=== PATIENT | male | born 1980 | race Caucasian/White ===

== ENCOUNTER 2023-11-06 08:37 | Inpatient (IN) | payer SELFPAY ==
[2023-11-06] VITALS (42 sets, daily range): BP systolic 100–177; BP diastolic 53–98; PULSE 84–131; RESP 13–32; TEMP 34.3–36.8; O2SAT 96–100
--- NOTE | 2023-11-06 08:44 | XR_ITS ---
WS: [id number] XR chest 1V portable [id number] REASON FOR EXAM: dyspnea/cough FINDINGS: No previous chest exam for comparison. There is cardiomegaly. There is engorgement of the central pulmonary veins. There is calcified granulomatous disease bilaterally. There is elevation of the right hemidiaphragm. No acute pulmonary parenchymal or pleural abnormality is identified. XR/XR chest 1V portable [id number] IMPRESSION: Cardiomegaly and central pulmonary venous hypertension. Pulmonary edema or acut e infiltrate not identified.
[2023-11-06 08:57] LABS: Glucose Point of Care > 600 mg/dL (70-110)
--- NOTE | 2023-11-06 09:04 | W.ED.GENADLT ---
HPI - General Adult General: Chief complaint: General Medical Stated complaint: hyperglycemic Time Seen by Provider: 11/06/23 08:43 History of Present Illness: 43-year-old male with a known history of diabetes mellitus presents to the emergency room with elevated blood sugars as well as nausea and vomiting. He has a history of diabetes mellitus he took his last insulin dose last night he states he could not afford his insulin so he ran out. He says he has not been ill recently. 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 Associated symptoms: Reports chest pain, dyspnea, malaise, nausea, vomiting and weakness; Deny rash Related Data Home Medications Medication Instructions Recorded Confirmed No Known Home Medications 11/06/23 11/06/23 Allergies Allergy/AdvReac Type Severity Reaction Status Date / Time No Known Allergies Allergy Verified 11/06/23 08:56 Review of Systems Const: Reports: malaise; Denies: fever(s) or chills Card: Reports: chest pain Resp: Reports: dyspnea GI: Reports: nausea and vomiting; Denies: abdominal pain : Denies: dysuria, urinary frequency or urinary urgency Musc: Denies: neck pain or back pain Skin/Breast: Denies: rash PFSH ED PFSH: Medical History Insulin dependent diabetes mellitus Social History (Updated 11/06/23 @ 11:06 by Roman Torres MD) Smoking and tobacco/nicotine status: current every day tobacco/nicotine user Alcohol intake: current Substance/Drug Use: never Physical Exam Const: GENERAL APPEARANCE: cooperative ORIENTATION/CONSCIOUSNESS: Yes awake, Yes oriented to person, Yes oriented to place and Yes oriented to time HENMT: COMMON NORMALS: normocephalic, atraumatic and hearing grossly normal bilaterally HEAD & SCALP: normocephalic and atraumatic Resp: COMMON NORMALS: normal respiratory effort, No retractions, No use of accessory muscles and clear to auscultation bilaterally AUSCULTATION: clear to auscultation bilaterally Cardio: COMMON NORMALS: regular rate, regular rhythm and No murmurs present (Cardio) RATE: regular rate RHYTHM: regular rhythm GI: COMMON NORMALS: Soft to palpation and No hepatosplenomegaly present AUSCULTATION: Yes normoactive bowel sounds PALPATION: Yes Soft to palpation, No Tenderness to palpation present (GI), No Guarding due to palpation present (GI) and Yes No hepatosplenomegaly present Extremity: COMMON NORMALS: normal to inspection, capillary refill normal, no clubbing, cyanosis or edema, no calf tenderness and no pedal edema Neuro: SENSORIUM/ORIENTATION: Yes oriented to person, Yes oriented to place and Yes oriented to time Skin: COMMON NORMALS: no rashes or lesions noted GENERAL SKIN EXAM: no rashes or lesions noted Course Vital Signs: Vital signs: Vital Signs Temperature 93.8 F L 11/06/23 12:05 Pulse Rate 108 H 11/06/23 11:55 Respiratory Rate 26 H 11/06/23 12:05 Blood Pressure 100/81 11/06/23 12:05 Pulse Oximetry 99 11/06/23 12:05 Oxygen Delivery Me thod Room Air 11/06/23 09:39 MDM - General Adult Medical Decision Making Patient is in severe DKA. Potassium is actually rather low for the level of acidosis he has from his DKA will start potassium supplement now fluids ordered started on sodium bicarb was also been given push dose insulin and started on a drip. Discussed with hospitalist orders written. Etiology is noncompliance. Lab Data I reviewed the patient's lab results. 11/06/23 08:57 11/06/23 12:24 Radiology Impressions Chest X-Ray 11/06/23 08:44 IMPRESSION: Cardiomegaly and central pulmonary venous hypertension. Pulmonary edema or acute infiltrate not identified. Laboratory Results WBC 9.76 10^3/uL (3.29-11.43) 11/06/23 08:57 RBC 3.20 10^6/uL (3.85-5.65) L 11/06/23 08:57 Hgb 11.70 g/dL (11.27-16.99) 11/06/23 08:57 Hct 38.6 % (37-53) 11/06/23 08:57 MCV 120.6 fl (82-101) H 11/06/23 08:57 MCH 36.6 pg (27-33) H 11/06/23 08:57 MCHC 30.3 g/dL (30-55) 11/06/23 08:57 RDW 12.4 % (12.1-15.1) 11/06/23 08:57 Plt Count 191 10^3/cmm (157-399) 11/06/23 08:57 MPV 10.0 fL (7.4-10.4) 11/06/23 08:57 Neut % (Auto) 75.5 % 11/06/23 08:57 Lymph % (Auto) 14.5 % 11/06/23 08:57 [place] % (Auto) 8.1 % 11/06/23 08:57 Eos % (Auto) 0.4 % 11/06/23 08:57 Baso % (Auto) 0.5 % 11/06/23 08:57 Neut # (Auto) 7.36 10^3/uL (1.8-7.7) 11/06/23 08:57 Lymph # (Auto) 1.4 10^3/uL (0.8-4.8) 11/06/23 08:57 [place] # (Auto) 0.8 10^3/uL (0.2-0.9) 11/06/23 08:57 Eos # (Auto) 0.0 10^3/uL (0.0-0.8) 11/06/23 08:57 Baso # (Auto) 0.1 10^3/uL (0.0-0.1) 11/06/23 08:57 Nucleated RBC % (auto) 0 % 11/06/23 08:57 Nucleated RBCs # 0.0 /100WBC 11/06/23 08:57 Specimen Type Arterial 11/06/23 08:56 Sample Site Radial, left 11/06/23 08:56 ABG pH 6.95 (7.35-7.45) L* 11/06/23 08:56 ABG pCO2 10.9 mmHg (35-45) L* 11/06/23 08:56 ABG pO2 141.0 mmHg (80.0-100.0) H 11/06/23 08:56 ABG PO2/FiO2 Ratio 671 11/06/23 08:56 ABG HCO3 2.4 mmol/L (22-26) L 11/06/23 08:56 ABG O2 Saturation 98.1 11/06/23 08:56 ABG Base Excess -27.9 mmol/L (-2.0-2.0) L 11/06/23 08:56 Thaddeus Test Pos 11/06/23 08:56 A-a O2 Gradient Not Reportable 11/06/23 08:56 Hematocrit 36.1 % (42-52) L 11/06/23 08:56 Hgb O2 Saturation 95.8 % (95-100) 11/06/23 08:56 Carboxyhemoglobin 1.0 %THgb (0.4-20.1) 11/06/23 08:56 Methemoglobin 1.5 % (0.4-1.5) 11/06/23 08:56 Total Hemoglobin 11.8 g/dL (14-18) L 11/06/23 08:56 Sodium 128.0 mmol/L (131-143) L 11/06/23 08:56 Potassium 5.0 mmol/L (3.5-5.0) 11/06/23 08:56 Glucose 924.0 mg/dL (70-115) H 11/06/23 08:56 Ionized Calcium 1.3 mmol/L (1.1-1.4) 11/06/23 08:56 O2 Delivery Device Room air 11/06/23 08:56 FiO2 21.0 % 11/06/23 08:56 Centrifugal Casting Machine Tender ID Amh 11/06/23 08:56 Sodium 125 mmol/L (136-145) L 11/06/23 08:57 Potassium 5.4 mmol/L (3.5-5.1) H 11/06/23 08:57 Chloride 79 mmol/L (98-107) L 11/06/23 08:57 Carbon Dioxide 3 mmol/L (22-29) L* 11/06/23 08:57 Anion Gap 48.4 (5-19) H 11/06/23 08:57 BUN 30 mg/dL (6-20) H 11/06/23 08:57 Creatinine 2.1 mg/dL (0.7-1.2) H 11/06/23 08:57 GFR Calculation 34.3 mL/min (90-130) L 11/06/23 08:57 Glucose 986 mg/dL (65-115) H* 11/06/23 08:57 POC Glucose > 600 mg/dL (70-110) H* 11/06/23 10:29 Estimat Average Glucose 255 11/06/23 08:57 Hemoglobin A1c 10.5 % (4.0-6.0) H 11/06/23 08:57 Calculated Osmolality 315 mOsm/kg (285-295) H 11/06/23 08:57 Calcium 8.9 mg/dL (8.5-10.5) 11/06/23 08:57 Phosphorus 7.4 mg/dL (2.5-4.5) H 11/06/23 08:57 Magnesium 2.4 mg/dL (1.7-2.3) H 11/06/23 08:57 Total Bilirubin 0.3 mg/dL (0.15-1.2) 11/06/23 08:57 AST 99 U/L (0-40) H 11/06/23 08:57 ALT 78 U/L (0-41) H 11/06/23 08:57 Alkaline Phosphatase 233 U/L (40-130) H 11/06/23 08:57 Total Protein 6.6 g/dL (6.6-8.7) 11/06/23 08:57 Albumin 3.4 g/dL (3.5-5.2) L 11/06/23 08:57 Globulin 3.2 g/dL (1.3-4.6) 11/06/23 08:57 Lipase 16 U/L (13-60) 11/06/23 08:57 Vitamin B12 1049 pg/mL (232-1245) 11/06/23 08:57 Folate 7.6 ng/mL (4.5-32.2) 11/06/23 08:57 TSH 2.08 uIU/mL (0.27-4.20) 11/06/23 08:57 Urine Color Yellow (Yellow) 11/06/23 09:37 Urine Appearance Cloudy (CLEAR) A 11/06/23 09:37 Urine pH 5.0 (5-7) 11/06/23 09:37 Ur Specific [place] 1.021 (1.005-1.030) 11/06/23 09:37 Urine Protein 3+ (Negative) A 11/06/23 09:37 Urine Glucose (UA) 3+ (Normal) H 11/06/23 09:37 Urine Ketones 3+ (Negative) H 11/06/23 09:37 Urine Blood 1+ (Negative) A 11/06/23 09:37 Urine Nitrate Negative (Negative) 11/06/23 09:37 Urine Bilirubin Negative (Negative) 11/06/23 09:37 Urine Urobilinogen 0.2 mg/dL (Negative) 11/06/23 09:37 Ur Leukocyte Esterase Negative (Negative) 11/06/23 09:37 Urine RBC 0-2 /hpf (0-2) 11/06/23 09:37 Urine WBC 0-5 /hpf (0-5) 11/06/23 09:37 Ur Squamous Epith Cells 0-5 /hpf (0-5) 11/06/23 09:37 Amorphous Sediment Not Reportable 11/06/23 09:37 Urine Bacteria None seen /hpf (NONE) 11/06/23 09:37 Hyaline Casts 7.01 /lpf 11/06/23 09:37 Ethyl Alcohol < 10 mg/dL (0-10) 11/06/23 08:57 Serum Ketones Positive (Negative) H 11/06/23 08:57 Hepatitis A IgM Ab Non-reactive (Nonreactive) 11/06/23 08:57 Hep Bs Antigen Non-reactive (Nonreactive) 11/06/23 08:57 Hep B Core IgM Ab Non-reactive (Nonreactive) 11/06/23 08:57 Hepatitis C Antibody Non-reactive (Nonreactive) 11/06/23 08:57 All radiology interpretation(s) finalized by discharge Discharge Plan Discharge Patient Disposition: Admitted As Inpatient Admit Provider: Roman Torres Clinical Impression: DKA (diabetic ketoacidosis), Insulin dependent diabetes mellitus, Acute kidney injury, Pseudohyponatremia Condition: Stable Coding Level of Care Code ED [place] for Jamie Null
[2023-11-06 09:07] LABS: ABG PCO2 10.9 mmHg (35-45); ABG PH Result 6.95 (7.35-7.45); Arterial Blood Gas Hematocrit 36.1 % (42-52); Base Excess ABG -27.9 mmol/L (-2.0-2.0); Blood Gas Allen Test Pos; Blood Gas Operator Identificat AMH; Blood Gas Sample Site Radial, left; Blood Gas Sample Type Arterial; HCO3 ABG 2.4 mmol/L (22-26); HGB O2 Sat 95.8 % (95-100); Ionized Calcium Level - ABG 1.3 mmol/L (1.1-1.4); Methemoglobin 1.5 % (0.4-1.5); Oxygen Device ROOM AIR; Oxygen Saturation ABG 98.1; PO2 FiO2 Ratio Arterial Blood 671; Total Hemoglobin 11.8 g/dL (14-18)
[2023-11-06 09:15] LABS: Basophils # 0.1 10^3/uL (0.0-0.1); Basophils % 0.5 %; Eosinophils % 0.4 %; Hematocrit 38.6 % (37-53); Lymphocytes # 1.4 10^3/uL (0.8-4.8); Lymphocytes % 14.5 %; Mean Corpuscular HGB Conc 30.3 g/dL (30-55); Mean Corpuscular Hemoglobin 36.6 pg (27-33); Mean Corpuscular Volume 120.6 fl (82-101); Monocytes # 0.8 10^3/uL (0.2-0.9); Monocytes % 8.1 %; Neutrophils # 7.36 10^3/uL (1.8-7.7); Neutrophils % 75.5 %; Nucleated Red Blood Cells % 0 %; Platelet Count 191 10^3/cmm (157-399); Red Cell Distribution Width 12.4 % (12.1-15.1); White Blood Count 9.76 10^3/uL (3.29-11.43)
[2023-11-06] MEDS: sodium chloride 0.9% 1,000 ML 999 ML IV ×4 (09:25→10:55)
[2023-11-06] MEDS: insulin regular-human 100 units/1 mL 10 UNIT IVP (09:25)
--- NOTE | 2023-11-06 09:29 | ECG_ITS ---
[facility] Test Date: 2023-11-06 Pat Name: Erik Valdez Department: Room: Gender: Male Neurology Stroke Physician: : 1980 Requested By: Kristian Figueroa Order Number: [id number] Reading MD: JESUS MARTE Measurements Intervals [place] Rate: 106 P: 64 PA: 168 QRS: 18 QRSD: 112 T: 38 QT: 373 QTc: 496 Interpretive Statements SINUS TACHYCARDIA MODERATE INTRAVENTRICULAR CONDUCTION DELAY [110+ ms QRS DURATION] MINIMAL ST DEPRESSION [0.025+ mV ST DEPRESSION] ABNORMAL RHYTHM ECG No previous ECG available for comparison Electronically Signed On 11-06-2023 11:46:14 CDT by JESUS MARTE [email or web address]
[2023-11-06 09:31] LABS: Ketone (Acetest) Serum Positive (Negative)
[2023-11-06 09:38] LABS: Alanine Aminotransferase 78 U/L (0-41); Albumin Level 3.4 g/dL (3.5-5.2); Alkaline Phosphatase 233 U/L (40-130); Anion Gap 48.4 (5-19); Aspartate Amino Transferase 99 U/L (0-40); Blood Urea Nitrogen 30 mg/dL (6-20); Calcium 8.9 mg/dL (8.5-10.5); Chloride 79 mmol/L (98-107); Globulin 3.2 g/dL (1.3-4.6); Glomerular Filtration Rate 34.3 mL/min (90-130); Lipase 16 U/L (13-60); Potassium 5.4 mmol/L (3.5-5.1); Sodium 125 mmol/L (136-145); Total Bilirubin 0.3 mg/dL (0.15-1.2); Total Protein 6.6 g/dL (6.6-8.7)
[2023-11-06 09:46] LABS: Osmolality Calculated 315 mOsm/kg (285-295)
[2023-11-06 09:52] LABS: Carbon Dioxide 3 mmol/L (22-29); Glucose 986 mg/dL (65-115)
[2023-11-06 09:53] LABS: Bilirubin Urine Negative (Negative); Blood Urine 1+ (Negative); Glucose Urine UA 3+ (Normal); Ketones Urine 3+ (Negative); Leukocyte Esterase Urine Negative (Negative); Nitrate Urine Negative (Negative); Protein Urine 3+ (Negative); Specific Gravity, Urine 1.021 (1.005-1.030); Urine Appearance Cloudy (CLEAR); Urine Color Yellow (Yellow); Urobilinogen Urine 0.2 mg/dL (Negative)
[2023-11-06 09:58] LABS: Add Urine Microscopic? YES; Bacteria Urine None Seen /hpf; Hyaline Casts Urine 7.01 /lpf; RBC Urine 0-2 /hpf (0-2); Squamous Epithelial Cell Urine 0-5 /hpf (0-5); WBC Urine 0-5 /hpf (0-5)
[2023-11-06 10:11] LABS: Add Urine Culture? No
[2023-11-06 10:13] LABS: Magnesium 2.4 mg/dL (1.7-2.3); Phosphorus 7.4 mg/dL (2.5-4.5)
--- NOTE | 2023-11-06 10:29 | PC.NURSE ---
Glucose @1028 via IV start: read HI.
[2023-11-06] MEDS: INSULIN REGULAR IN 0.9 % NACL 100 UNIT/100 ML BAG 8 UNIT IV (10:39)
[2023-11-06] MEDS: potassium chloride premix 100 ML 25 MEQ IV (10:42)
[2023-11-06] MEDS: sodium bicarbonate 150 MEQ in dextrose 5% 200 ML 500 MEQ IV (10:53)
--- NOTE | 2023-11-06 10:54 | PC.NURSE ---
Insulin gtt rate: per Dr. Tobar to start insulin gtt @8 units/hr
--- NOTE | 2023-11-06 11:00 | PC.PHAR ---
pt states takes no home medications. Pharmacy listed is [facility]. They have no record of any medications for this pt.
--- NOTE | 2023-11-06 11:03 | P.HP_ITS ---
Providers/Chief Complaint 2 Admitting Physician: Roman Torres MD Chief Complaint: hyperglycemic History of Present Illness Erik Valdez is a 43 year old male with history of diabetes insulin- dependent who presents with DKA. He reports he has not taken his insulin in the last several days. He typically does not see a physician, getting his insulin directly from [facility]. Reports his last DKA admission was about a year ago in [place]. With increased sugars again abdominal pain, nausea and vomiting. He reports no recent illness, fever, COVID, blood in stool, black or tarry stool. Reports he does not take any other medicines and has no other medical problems. History is somewhat limited as he is severely acidotic, with a high respiratory rate and obviously uncomfortable with his DKA. He does report he drinks alcohol but is never had any withdrawal. In the emergency department he has received quite a bit of fluids, and apparently will have received 4 L by the time he arrives in the ICU. Bicarb was given, insulin protocol initiated Review of Systems 2 General: Reports: 10 or more systems reviewed and unremarkable except in HPI and below Card: Denies: chest pain Resp: Reports: dyspnea GI: Reports: nausea and vomiting; Denies: abdominal pain, hematochezia or melena Medications/Allergies Home Medications Medication Instructions Recorded Confirmed Last Taken Type No Known Home Medications 11/06/23 11/06/23 Unknown History Allergies Allergy/AdvReac Type Severity Reaction Status Date / Time No Known Allergies Allergy Verified 11/06/23 08:56 PFSH Acute 2 PFSH: Medical History Insulin dependent diabetes mellitus Social History (Updated 11/06/23 @ 11:06 by Roman Torres MD) Smoking and tobacco/nicotine status: current every day tobacco/nicotine user Alcohol intake: current Substance/Drug Use: never Vitals/I&O/Wt Last Vital Signs Temp 94.3 F L 11/06/23 08:39 Pulse 105 H 11/06/23 10:50 Resp 25 H 11/06/23 10:50 BP 104/65 11/06/23 10:50 Pulse Ox 99 11/06/23 10:50 O2 Del Method Room Air 11/06/23 09:39 11/05/23 11/06/23 11/06/23 22:59 06:59 14:59 Intake Total 6.55 / 6.55 Balance 6.55 / 6.55 Weight last 48 hrs Weight 120.202 kg Physical Exam 2 Narrative: General Exam is an uncomfortable appearing white male with significant tachypnea reporting he is cold HEENT: Atraumatic normocephalic. Oropharynx dry mucous membranes Neck is supple Cardiovascular tachycardic and regular Lungs clear Abdomen is soft, no obvious organomegaly. Positive bowel sounds exams deferred Extremities no sinus clubbing edema, cap refill brisk Skin no rash Data 11/06/23 08:57 11/06/23 08:57 Other Labs: ABG demonstrates pH 6.95, pCO2 of 10.9, pO2 of 141 on room air Phosphorus 7.4, magnesium 2.4, calcium 8.9 Total bili normal, AST 99 ALT 78 alk phos 233, albumin 3.4 Lipase is normal I have ordered a B12, folate, TSH, A1c Urinalysis demonstrates 3+ protein and glucose Serum ketones positive I have ordered an alcohol level and a hepatitis panel Chest x-ray by my read no infiltrate, cardiomegaly EKG demonstrates sinus tachycardia, normal axis, intraventricular conduction delay A&P Assessment and plan (1) DKA (diabetic ketoacidosis): This is likely secondary to noncompliance with insulin. Patient relates that he is run out of medication and was not able to afford this. DKA protocol initiated He will of received over 4 L of oxygen prior to arriving in the ICU BMP every 4 hours When glucose 250 or less initiate D5 half-normal saline with 20 mill colons of potassium per liter Close follow-up of magnesium and phosphorus and supplement if needed (2) Hypothermia: Patient with hypothermia Rewarm Monitor closely Currently low suspicion for sepsis but will keep in mind (3) Macrocytosis: Patient macrocytic Check B12 folate TSH Could be secondary to alcohol intake, monitor for withdrawal (4) Acute kidney injury: Patient with acute kidney injury This is likely secondary to dehydration, prerenal effect from DKA Monitor for improvement with hydration (5) Pseudohyponatremia: Secondary to elevated glucose Plan History of alcohol intake. [facility] protocol Monitor for withdrawal Attestations 2 Medical Necessity Statement*: Will need greater than 2 midnight stay for evaluation and treatment of DKA for close monitoring of Critical Care Time: The high probability of a clinically significant, sudden or life threatening deterioration of the patient's [endocrine, electrolyte, metabolic, renal] s ystem(s) required my full and direct attention, intervention and personal management. The critical care time is as shown. This time is in addition to time spent performing any reported procedures but includes the following: [x] Data and vital sign review and interpretation [x] Patient assessment, examination and intervention [x] Documentation [x] Medication orders and management Critical Care Time (min): 54 Coding Level of Care Code Critical Care >/= 30 minutes Critical care time (in minutes): 54 The high probability of a clinically significant, sudden or life threatening deterioration, as referenced in this documentation, required my full and direct attention, intervention and personal management. The critical care time shown is in addition to time spent performing any reported separately billable procedures and includes the following: [x] Data and vital sign review and interpretation [x ] Patient assessment, examination and intervention [x] Medication orders and management [x] Patient/Family updates as able [x] Care Coordination and Documentation. Diagnoses DKA (diabetic ketoacidosis) E11.10 Hypothermia T68.XXXA Macrocytosis D75.89 Acute kidney injury N17.9 Pseudohyponatremia R79.89
--- NOTE | 2023-11-06 11:04 | PC.NURSE ---
pt's rectal temperature 94.4 deg F, Dr. Tobar notified. x3 warm blankets placed on pt.
[2023-11-06 11:13] LABS: Glucose Point of Care > 600 mg/dL (70-110)
--- NOTE | 2023-11-06 11:13 | PC.NURSE ---
Glucose via fingerstick @1113: Dr. Ekaterina Moraes notified
[2023-11-06 11:15] LABS: Glucose Point of Care > 600 mg/dL (70-110)
[2023-11-06 11:25] LABS: Hepatitis A Antibody IgM Non-Reactive (Nonreactive); Hepatitis B Core IgM Non-Reactive (Nonreactive); Hepatitis B Surface Antigen Non-Reactive (Nonreactive); Hepatitis C Virus Antibody Non-Reactive (Nonreactive)
--- NOTE | 2023-11-06 11:29 | PC.NURSE ---
Report called to Ricardo in ICU, no further questions regarding report. Pt transported to ICU via stretcher on hospital monitor by this nurse and nuclear medical technologist.
[2023-11-06 11:31] LABS: Folate Level 7.6 ng/mL (4.5-32.2)
[2023-11-06 11:32] LABS: Thyroid Stimulating Hormone 2.08 uIU/mL (0.27-4.20); Vitamin B12 1049 pg/mL (232-1245)
[2023-11-06 11:35] LABS: Alcohol Level < 10 mg/dL (0-10)
[2023-11-06 11:47] LABS: Estmated Average Glucose 255; Hemoglobin A1C 10.5 % (4.0-6.0)
[2023-11-06 12:58] LABS: Anion Gap 39.2 (5-19); Blood Urea Nitrogen 29 mg/dL (6-20); Calcium 8.1 mg/dL (8.5-10.5); Chloride 92 mmol/L (98-107); Creatinine Clr Calc Pharmacy 66.9887; Glomerular Filtration Rate 36.3 mL/min (90-130); Osmolality Calculated 317 mOsm/kg (285-295); Potassium 4.2 mmol/L (3.5-5.1); Sodium 135 mmol/L (136-145)
[2023-11-06 13:05] LABS: Glucose Point of Care > 600 mg/dL (70-110)
[2023-11-06 13:07] LABS: Carbon Dioxide 8 mmol/L (22-29); Glucose 655 mg/dL (65-115)
[2023-11-06 14:04] LABS: Glucose Point of Care 493 mg/dL (70-110)
[2023-11-06] MEDS: heparin 5,000 unit/mL INJ 1 mL 5000 UNIT SUBCUT ×2 (14:30→23:59)
[2023-11-06] MEDS: sodium chlor 0.9% + KCl 20 mEq 20 MEQ/1,000 ML BAG 175 MEQ IV (14:30)
[2023-11-06 15:08] LABS: Glucose Point of Care 330 mg/dL (70-110)
[2023-11-06] MEDS: nicotine 21 mg Patch 1 PATCH TRANSDERMA (15:08)
[2023-11-06 16:01] LABS: Glucose Point of Care 281 mg/dL (70-110)
[2023-11-06] MEDS: INSULIN REGULAR IN 0.9 % NACL 100 UNIT/100 ML BAG 27 UNIT IV (16:03)
[2023-11-06 16:49] LABS: Glucose Point of Care 598 mg/dL (70-110)
[2023-11-06 17:05] LABS: Blood Urea Nitrogen 29 mg/dL (6-20); Calcium 8.3 mg/dL (8.5-10.5); Carbon Dioxide 14 mmol/L (22-29); Chloride 102 mmol/L (98-107); Creatinine Clr Calc Pharmacy 70.5144; Glomerular Filtration Rate 38.5 mL/min (90-130); Glucose 265 mg/dL (65-115); Osmolality Calculated 305 mOsm/kg (285-295); Sodium 140 mmol/L (136-145)
[2023-11-06 17:07] LABS: Anion Gap 27.7 (5-19); Potassium 3.7 mmol/L (3.5-5.1)
[2023-11-06 17:11] LABS: Glucose Point of Care 177 mg/dL (70-110)
[2023-11-06] MEDS: D5-NS 0.45% + KCL 20 mEq 20 MEQ/1,000 ML BAG 75 MEQ IV ×2 (17:24→23:57)
[2023-11-06 18:06] LABS: Glucose Point of Care 100 mg/dL (70-110)
[2023-11-06 19:04] LABS: Glucose Point of Care 151 mg/dL (70-110)
[2023-11-06] MEDS: acetaminophen 325 mg Tablet 650 MG PO (19:37)
[2023-11-06 19:41] LABS: Glucose Point of Care 101 mg/dL (70-110)
[2023-11-06] MEDS: cetylpyridinium Lozenge 1 EACH MUCOUS MEM (20:05)
[2023-11-06 20:07] LABS: Magnesium 1.8 mg/dL (1.7-2.3)
[2023-11-06 20:08] LABS: Anion Gap 16.7 (5-19); Blood Urea Nitrogen 27 mg/dL (6-20); Calcium 8.2 mg/dL (8.5-10.5); Carbon Dioxide 22 mmol/L (22-29); Chloride 107 mmol/L (98-107); Creatinine Clr Calc Pharmacy 78.8103; Glomerular Filtration Rate 43.8 mL/min (90-130); Glucose 101 mg/dL (65-115); Osmolality Calculated 299 mOsm/kg (285-295); Potassium 3.7 mmol/L (3.5-5.1); Sodium 142 mmol/L (136-145)
[2023-11-06 21:30] LABS: Glucose Point of Care 159 mg/dL (70-110)
[2023-11-06 22:09] LABS: Glucose Point of Care 172 mg/dL (70-110)
[2023-11-06] MEDS: hyDROXYzine 25 mg Capsule PO (22:47)
[2023-11-06 23:04] LABS: Glucose Point of Care 220 mg/dL (70-110)
[2023-11-06 23:04] LABS: Glucose Point of Care 164 mg/dL (70-110)
[2023-11-07] VITALS (11 sets, daily range): BP systolic 129–215; BP diastolic 69–117; PULSE 81–94; RESP 15–24; TEMP 36.3; O2SAT 94–100
[2023-11-07 01:22] LABS: Glucose Point of Care 232 mg/dL (70-110)
[2023-11-07 01:22] LABS: Glucose Point of Care 248 mg/dL (70-110)
[2023-11-07 01:58] LABS: Glucose Point of Care 266 mg/dL (70-110)
[2023-11-07] MEDS: cetylpyridinium Lozenge 1 EACH MUCOUS MEM (02:03)
[2023-11-07] MEDS: ondansetron 2 mg/ML SDV 2 mL 4 MG IVP (02:03)
[2023-11-07 04:00] LABS: Glucose Point of Care 237 mg/dL (70-110)
[2023-11-07 04:00] LABS: Glucose Point of Care 255 mg/dL (70-110)
[2023-11-07 04:22] LABS: Basophils % 0.1 %; Eosinophils % 0.3 %; Hematocrit 31.5 % (37-53); Lymphocytes # 1.1 10^3/uL (0.8-4.8); Lymphocytes % 14.8 %; Mean Corpuscular Hemoglobin 35.3 pg (27-33); Mean Corpuscular Volume 106.8 fl (82-101); Mean Platelet Volume 9.9 fL (7.4-10.4); Monocytes # 0.8 10^3/uL (0.2-0.9); Monocytes % 11.6 %; Neutrophils # 5.27 10^3/uL (1.8-7.7); Neutrophils % 73.1 %; Nucleated Red Blood Cells % 0 %; Platelet Count 139 10^3/cmm (157-399); Red Blood Count 2.95 10^6/uL (3.85-5.65); Red Cell Distribution Width 11.9 % (12.1-15.1); White Blood Count 7.22 10^3/uL (3.29-11.43)
[2023-11-07 04:41] LABS: Alanine Aminotransferase 60 U/L (0-41); Albumin Level 2.8 g/dL (3.5-5.2); Alkaline Phosphatase 153 U/L (40-130); Aspartate Amino Transferase 78 U/L (0-40); Blood Urea Nitrogen 23 mg/dL (6-20); Calcium 7.8 mg/dL (8.5-10.5); Carbon Dioxide 19 mmol/L (22-29); Chloride 102 mmol/L (98-107); Creatinine Clr Calc Pharmacy 83.7359; Globulin 2.7 g/dL (1.3-4.6); Glucose 265 mg/dL (65-115); Magnesium 1.8 mg/dL (1.7-2.3); Osmolality Calculated 295 mOsm/kg (285-295); Sodium 136 mmol/L (136-145); Total Bilirubin 0.3 mg/dL (0.15-1.2); Total Protein 5.5 g/dL (6.6-8.7)
[2023-11-07 04:44] LABS: Anion Gap 18.8 (5-19); Potassium 3.8 mmol/L (3.5-5.1)
[2023-11-07 05:08] LABS: Glucose Point of Care 240 mg/dL (70-110)
[2023-11-07 06:24] LABS: Glucose Point of Care 245 mg/dL (70-110)
[2023-11-07] MEDS: D5-NS 0.45% + KCL 20 mEq 20 MEQ/1,000 ML BAG 75 MEQ IV (06:45)
[2023-11-07 07:42] LABS: Glucose Point of Care 212 mg/dL (70-110)
[2023-11-07 08:40] LABS: Glucose Point of Care 212 mg/dL (70-110)
[2023-11-07] MEDS: thiamine 100 mg Tablet PO (08:52)
[2023-11-07] MEDS: multivitamin therapeutic Tablet 1 TAB PO (08:52)
[2023-11-07] MEDS: nicotine 21 mg Patch 1 PATCH TRANSDERMA (08:53)
[2023-11-07] MEDS: folic acid 1 mg Tablet PO (08:53)
[2023-11-07] MEDS: pantoprazole 40 mg SDV IVP (08:53)
[2023-11-07 09:07] LABS: Glucose Point of Care 208 mg/dL (70-110)
[2023-11-07 09:09] LABS: Anion Gap 15.5 (5-19); Blood Urea Nitrogen 20 mg/dL (6-20); Calcium 7.9 mg/dL (8.5-10.5); Carbon Dioxide 21 mmol/L (22-29); Chloride 104 mmol/L (98-107); Glomerular Filtration Rate 54.8 mL/min (90-130); Glucose 231 mg/dL (65-115); Osmolality Calculated 294 mOsm/kg (285-295); Potassium 3.5 mmol/L (3.5-5.1); Sodium 137 mmol/L (136-145)
[2023-11-07 09:13] LABS: Creatinine Clr Calc Pharmacy 98.7419
[2023-11-07] MEDS: insulin glargine 100 units/1 mL 20 UNIT SUBCUT (10:17)
[2023-11-07] MEDS: sodium chloride 0.9% 1,000 ML 75 ML IV (10:19)
[2023-11-07 12:12] LABS: Glucose Point of Care 365 mg/dL (70-110)
[2023-11-07] MEDS: insulin lispro 100 unit/1 mL SUBCUT (12:12)
[2023-11-07] MEDS: losartan 50 mg Tablet 25 MG PO (12:13)
[2023-11-07 13:17] LABS: Anion Gap 16.7 (5-19); Blood Urea Nitrogen 18 mg/dL (6-20); Calcium 8.1 mg/dL (8.5-10.5); Carbon Dioxide 20 mmol/L (22-29); Chloride 102 mmol/L (98-107); Glomerular Filtration Rate 59.7 mL/min (90-130); Glucose 359 mg/dL (65-115); Osmolality Calculated 296 mOsm/kg (285-295); Potassium 3.7 mmol/L (3.5-5.1); Sodium 135 mmol/L (136-145)
[2023-11-07 13:18] LABS: Creatinine Clr Calc Pharmacy 106.3375
--- NOTE | 2023-11-07 13:40 | P.DS_ITS ---
Discharge Providers Date of Admission: 11/06/23 11:00 Date of Discharge: November 07, 2023 Attending Provider at Admission: Roman Torres MD Attending Provider at Discharge: Roman Torres MD Diagnoses at Discharge Discharge Diagnosis (1) DKA (diabetic ketoacidosis): Status: Acute (2) Hypothermia: Status: Acute (3) Macrocytosis: Status: Acute (4) Acute kidney injury: Status: Acute (5) Pseudohyponatremia: Status: Acute Reason for Visit Reason for Visit: hyperglycemic Hospital Course Hospital Course Patient is a 43-year-old white male who presented to hospital severely ill with DKA with pH less than 7. He was fluid resuscitated in the ER, and initiated on a insulin drip protocol. He did well with this and had gradual resolution of his DKA. Gap was closed by the morning of November 06 and long-acting insulin was started as well as consistent carb diet. He tolerated this in the afternoon without any recurrence of anion gap acidosis though it was thought he could be discharged home. Prescriptions for insulin, follow-up with primary care provider, and precautions were given. He agreed with the plan. He was told to stop drinking alcohol as he was also drinking heavily. He was able to relate symptoms of hypoglycemia, and the plan should this occur. Physical Exam Narrative: General Exam no distress Neck is supple Cardiovascular regular rate rhythm Lungs clear Abdomen soft Extremities no cyanosis clubbing or edema Discharge Data Studies Completed and Pending Completed Studies During Hospitalization Category Date Time Status XR chest 1V portable [id number] Stat Exams 11/06/23 08:44 Completed Radiology Impressions Chest X-Ray 11/06/23 08:44 IMPRESSION: Cardiomegaly and central pulmonary venous hypertension. Pulmonary edema or acute infiltrate not identified. Laboratory Results WBC 7.22 10^3/uL (3.29-11.43) 11/07/23 03:57 RBC 2.95 10^6/uL (3.85-5.65) L 11/07/23 03:57 Hgb 10.40 g/dL (11.27-16.99) L 11/07/23 03:57 Hct 31.5 % (37-53) L 11/07/23 03:57 MCV 106.8 fl (82-101) H D 11/07/23 03:57 MCH 35.3 pg (27-33) H 11/07/23 03:57 MCHC 33.0 g/dL (30-55) D 11/07/23 03:57 RDW 11.9 % (12.1-15.1) L 11/07/23 03:57 Plt Count 139 10^3/cmm (157-399) L 11/07/23 03:57 MPV 9.9 fL (7.4-10.4) 11/07/23 03:57 Neut % (Auto) 73.1 % 11/07/23 03:57 Lymph % (Auto) 14.8 % 11/07/23 03:57 [place] % (Auto) 11.6 % 11/07/23 03:57 Eos % (Auto) 0.3 % 11/07/23 03:57 Baso % (Auto) 0.1 % 11/07/23 03:57 Neut # (Auto) 5.27 10^3/uL (1.8-7.7) 11/07/23 03:57 Lymph # (Auto) 1.1 10^3/uL (0.8-4.8) 11/07/23 03:57 [place] # (Auto) 0.8 10^3/uL (0.2-0.9) 11/07/23 03:57 Eos # (Auto) 0.0 10^3/uL (0.0-0.8) 11/07/23 03:57 Baso # (Auto) 0.0 10^3/uL (0.0-0.1) 11/07/23 03:57 Nucleated RBC % (auto) 0 % 11/07/23 03:57 Nucleated RBCs # 0.0 /100WBC 11/07/23 03:57 Specimen Type Arterial 11/06/23 08:56 Sample Site Radial, left 11/06/23 08:56 ABG pH 6.95 (7.35-7.45) L* 11/06/23 08:56 ABG pCO2 10.9 mmHg (35-45) L* 11/06/23 08:56 ABG pO2 141.0 mmHg (80.0-100.0) H 11/06/23 08:56 ABG PO2/FiO2 Ratio 671 11/06/23 08:56 ABG HCO3 2.4 mmol/L (22-26) L 11/06/23 08:56 ABG O2 Saturation 98.1 11/06/23 08:56 ABG Base Excess -27.9 mmol/L (-2.0-2.0) L 11/06/23 08:56 Thaddeus Test Pos 11/06/23 08:56 A-a O2 Gradient Not Reportable 11/06/23 08:56 Hematocrit 36.1 % (42-52) L 11/06/23 08:56 Hgb O2 Saturation 95.8 % (95-100) 11/06/23 08:56 Carboxyhemoglobin 1.0 %THgb (0.4-20.1) 11/06/23 08:56 Methemoglobin 1.5 % (0.4-1.5) 11/06/23 08:56 Total Hemoglobin 11.8 g/dL (14-18) L 11/06/23 08:56 Sodium 128.0 mmol/L (131-143) L 11/06/23 08:56 Potassium 5.0 mmol/L (3.5-5.0) 11/06/23 08:56 Glucose 924.0 mg/dL (70-115) H 11/06/23 08:56 Ionized Calcium 1.3 mmol/L (1.1-1.4) 11/06/23 08:56 O2 Delivery Device Room air 11/06/23 08:56 FiO2 21.0 % 11/06/23 08:56 Change Management Director ID Amh 11/06/23 08:56 Sodium 135 mmol/L (136-145) L 11/07/23 12:50 Potassium 3.7 mmol/L (3.5-5.1) 11/07/23 12:50 Chloride 102 mmol/L (98-107) 11/07/23 12:50 Carbon Dioxide 20 mmol/L (22-29) L 11/07/23 12:50 Anion Gap 16.7 (5-19) 11/07/23 12:50 BUN 18 mg/dL (6-20) 11/07/23 12:50 Creatinine 1.3 mg/dL (0.7-1.2) H 11/07/23 12:50 GFR Calculation 59.7 mL/min (90-130) L 11/07/23 12:50 Glucose 359 mg/dL (65-115) H 11/07/23 12:50 POC Glucose 365 mg/dL (70-110) H 11/07/23 12:04 Estimat Average Glucose 255 11/06/23 08:57 Hemoglobin A1c 10.5 % (4.0-6.0) H 11/06/23 08:57 Calculated Osmolality 296 mOsm/kg (285-295) H 11/07/23 12:50 Calcium 8.1 mg/dL (8.5-10.5) L 11/07/23 12:50 Phosphorus 7.4 mg/dL (2.5-4.5) H 11/06/23 08:57 Magnesium 1.8 mg/dL (1.7-2.3) 11/07/23 03:57 Total Bilirubin 0.3 mg/dL (0.15-1.2) 11/07/23 03:57 AST 78 U/L (0-40) H 11/07/23 03:57 ALT 60 U/L (0-41) H 11/07/23 03:57 Alkaline Phosphatase 153 U/L (40-130) H 11/07/23 03:57 Total Protein 5.5 g/dL (6.6-8.7) L 11/07/23 03:57 Albumin 2.8 g/dL (3.5-5.2) L 11/07/23 03:57 Globulin 2.7 g/dL (1.3-4.6) 11/07/23 03:57 Lipase 16 U/L (13-60) 11/06/23 08:57 Vitamin B12 1049 pg/mL (232-1245) 11/06/23 08:57 Folate 7.6 ng/mL (4.5-32.2) 11/06/23 08:57 TSH 2.08 uIU/mL (0.27-4.20) 11/06/23 08:57 Urine Color Yellow (Yellow) 11/06/23 09:37 Urine Appearance Cloudy (CLEAR) A 11/06/23 09:37 Urine pH 5.0 (5-7) 11/06/23 09:37 Ur Specific [place] 1.021 (1.005-1.030) 11/06/23 09:37 Urine Protein 3+ (Negative) A 11/06/23 09:37 Urine Glucose (UA) 3+ (Normal) H 11/06/23 09:37 Urine Ketones 3+ (Negative) H 11/06/23 09:37 Urine Blood 1+ (Negative) A 11/06/23 09:37 Urine Nitrate Negative (Negative) 11/06/23 09:37 Urine Bilirubin Negative (Negative) 11/06/23 09:37 Urine Urobilinogen 0.2 mg/dL (Negative) 11/06/23 09:37 Ur Leukocyte Esterase Negative (Negative) 11/06/23 09:37 Urine RBC 0-2 /hpf (0-2) 11/06/23 09:37 Urine WBC 0-5 /hpf (0-5) 11/06/23 09:37 Ur Squamous Epith Cells 0-5 /hpf (0-5) 11/06/23 09:37 Amorphous Sediment Not Reportable 11/06/23 09:37 Urine Bacteria None seen /hpf (NONE) 11/06/23 09:37 Hyaline Casts 7.01 /lpf 11/06/23 09:37 Ethyl Alcohol < 10 mg/dL (0-10) 11/06/23 08:57 Serum Ketones Positive (Negative) H 11/06/23 08:57 Hepatitis A IgM Ab Non-reactive (Nonreactive) 11/06/23 08:57 Hep Bs Antigen Non-reactive (Nonreactive) 11/06/23 08:57 Hep B Core IgM Ab Non-reactive (Nonreactive) 11/06/23 08:57 Hepatitis C Antibody Non-reactive (Nonreactive) 11/06/23 08:57 Vitals Last Vital Signs Temp 97.4 F L 11/07/23 04:00 Pulse 91 11/07/23 10:41 Resp 15 11/07/23 10:00 BP 215/115 11/07/23 12:13 Pulse Ox 94 11/07/23 10:41 O2 Del Method Room Air 11/07/23 10:41 Discharge Plan Discharge Patient Disposition: Home Condition: Stable Prescriptions: New losartan 50 mg Tablet 25 mg PO DAILY Qty: 30 0RF insulin glargine [Lantus Solostar U-100 Insulin] 100 unit/mL (3 mL) insulin pen 30 unit SUBCUT QPM Qty: 15 0RF Humalog U-100 Insulin 100 unit/mL cartridge 8 unit SUBCUT TID Qty: 15 0RF No Action No Known Home Medications Discharge Orders: Discharge Order (Routine); Ordered 11/07/23 Ordered By: Roman Torres Discharge Diet: Diabetic Discharge Activity: Increase activity as tolerated Patient Instructions: Opioid Safety Activity Restrictions/Additional Instructions: Take all medicine as prescribed Follow-up with primary care provider 3 to 5 days. Discharge planning will arrange Keep track of your blood pressures at home Take 30 units of Lantus daily. Take 8 units of Humalog with your meals 3 times daily. May use your sliding scale if needed Discharge Attestations Time Spent in Discharge Care*: greater than 30 min Quality Metrics Clinical Quality Measures [ No reported AMI, CVA or VTE this stay] Coding Level of Care Code 64916 Total time (in minutes) for Discharge: 38 Diagnoses DKA (diabetic ketoacidosis) E11.10 Hypothermia T68.XXXA Macrocytosis D75.89 Acute kidney injury N17.9 Pseudohyponatremia R79.89
--- NOTE | 2023-11-07 14:15 | PC.NURSE ---
Discharg information was gone over with the patient and his daughter. He was educated on DKA and the signs and symptoms. Follow up appointment with a PCP was given. Patient stated that he would have to wait to see a doctor until open enrollment later in the year.
== END 2023-11-07 15:30 | disposition home or self-care (01) | DRG 638 ==
LOC: ER 10:59 → ICU 11:00
PROVIDERS: Admitting Provider Internal Medicine; Emergency Provider Family Medicine; Visit Provider Internal Medicine
DX: E11.10 Type 2 diabetes mellitus with ketoacidosis without coma (principal); N17.9 Acute kidney failure, unspecified; F17.200 Nicotine dependence, unspecified, uncomplicated; T68.XXXA Hypothermia, initial encounter; E86.0 Dehydration; R79.89 Other specified abnormal findings of blood chemistry; Z91.141 Patient's other noncompliance with medication regimen due to financial hardship; Z79.4 Long term (current) use of insulin
CPT/HCPCS: 36415; 36416; 36600; 71045; 80048; 80051; 80053; 80074; 80307; 81001; 82009; 82330; 82607; 82746; 82805; 82962; 83036; 83690; 83735; 84100; 84443; 85025; 93005; 96365; 96366; 96367; 96372; 96375; 99285; 99291; 99292; J1644; J1815; J2405; J2470; J3411; J3480; J7030; J7060

== ENCOUNTER 2024-01-13 12:52 | Inpatient (IN) | payer SELFPAY ==
[2024-01-13] VITALS (27 sets, daily range): BP systolic 113–180; BP diastolic 61–110; PULSE 88–110; RESP 11–27; TEMP 36.7; O2SAT 96–100; BMI 31.1; BMI 31.3
--- NOTE | 2024-01-13 12:55 | XR_ITS ---
WS: [id number] Exam: XR chest 1V portable [id number] Date/Time of Exam: 01/13/2024 1:11 PM Reason For Exam: dyspnea/cough Comparison 11/06/2023. The lungs are clear and fully inflated. Cardiomediastinal silhouette is unremarkable for technique. N o pleural effusions. Normal bony structures. XR/XR chest 1V portable [id number] IMPRESSION: 1. No acute cardiopulmonary finding.
--- NOTE | 2024-01-13 12:57 | ED_ITS ---
HPI - General Adult 2 General: Chief complaint: General Medical Stated complaint: DKA Time Seen by Provider: 01/13/24 12:53 History of Present Illness: 43-[facility] of nausea vomiting began yesterday his blood sugar was getting excessively high patient with good fluid for by the time he went to bed he felt better and then this morning he began feeling worse again with persistent nausea vomiting generalized aching. Blood sugar elevated in triage. He denies any hemoptysis or hematemesis coffee-ground emesis hematochezia. Associated symptoms: Reports nausea and vomiting; Deny chest pain, dyspnea or rash Related Data Previous Rx's Medication Instructions Recorded insulin glargine 100 unit/mL (3 30 unit (0.3 mL) SUBCUT QPM #15 mL 11/07/23 mL) subcutaneous pen (Lantus Solostar U-100 Insulin) insulin lispro 100 unit/mL 8 unit (0.08 mL) SUBCUT TID #15 mL 11/07/23 subcutaneous cartridge (Humalog U-100 Insulin) losartan 50 mg tablet 25 mg (1/2 x 50 mg) PO DAILY #30 11/07/23 tabs Allergies Allergy/AdvReac Type Severity Reaction Status Date / Time No Known Allergies Allergy Verified 11/06/23 08:56 Review of Systems 2 Const: Denies: fever(s) or chills Card: Denies: chest pain Resp: Denies: dyspnea GI: Reports: abdominal pain, nausea, vomiting and constipation : Denies: dysuria, urinary frequency or urinary urgency Musc: Denies: neck pain or back pain Skin/Breast: Denies: rash PFS ED 2 PFSH: Medical History Insulin dependent diabetes mellitus Social History Smoking and tobacco/nicotine status: current every day tobacco/nicotine user Alcohol intake: current Substance/Drug Use: never Physical Exam 2 Const: GENERAL APPEARANCE: cooperative ORIENTATION/CONSCIOUSNESS: Yes awake, Yes oriented to person, Yes oriented to place and Yes oriented to time HENMT: COMMON NORMALS: normocephalic, atraumatic and hearing grossly normal bilaterally HEAD & SCALP: normocephalic and atraumatic Resp: COMMON NORMALS: normal respiratory effort, No retractions, No use of accessory muscles and clear to auscultation bilaterally EFFORT & INSPECTION: Yes tachypneic AUSCULTATION: clear to auscultation bilaterally Cardio: COMMON NORMALS: regular rhythm and No murmurs present (Cardio) R ATE: tachycardic RHYTHM: regular rhythm GI: COMMON NORMALS: Soft to palpation and No hepatosplenomegaly present A USCULTATION: Yes normoactive bowel sounds PALPATION: Yes Soft to palpation, No Tenderness to palpation present (GI), No Guarding due to palpation present (GI) and Yes No hepatosplenomegaly present Extremity: COMMON NORMALS: normal to inspection, capillary refill normal, no clubbing, cyanosis or edema, no calf tenderness and no pedal edema Neuro: SENSORIUM/ORIENTATION: Yes oriented to person, Yes oriented to place and Yes oriented to time Skin: COMMON NORMALS: no rashes or lesions noted GENERAL SKIN EXAM: no rashes or lesions noted Course 2 Vital Signs: Vital signs: Vital Signs Temperature 98.1 F 01/13/24 12:53 Pulse Rate 110 H 01/13/24 16:22 Respiratory Rate 101 H 01/13/24 16:00 Blood Pressure 171/110 01/13/24 16:22 Pulse Oximetry 97 01/13/24 16:22 Oxygen Delivery Me thod Room Air 01/13/24 16:00 MDM - General Adult Medical Decision Making Patient presents in acute DKA. He is given IV fluids initial insulin insulin drip as well as sodium bicarb. He will need early potassium supplementation as well discussed with hospitalist orders written. Medical Records I reviewed the patient's medical records. Lab Data I reviewed the patient's lab results. 01/13/24 12:55 01/13/24 12:55 Radiology Impressions Chest X-Ray 01/13/24 12:55 IMPRESSION: 1. No acute cardiopulmonary finding. Laboratory Results WBC 6.34 10^3/uL (3.29-11.43) 01/13/24 12:55 RBC 3.64 10^6/uL (3.85-5.65) L 01/13/24 12:55 Hgb 13.10 g/dL (11.27-16.99) 01/13/24 12:55 Hct 39.5 % (37-53) 01/13/24 12:55 MCV 108.5 fl (82-101) H 01/13/24 12:55 MCH 36.0 pg (27-33) H 01/13/24 12:55 MCHC 33.2 g/dL (30-55) 01/13/24 12:55 RDW 12.7 % (12.1-15.1) 01/13/24 12:55 Plt Count 124 10^3/cmm (157-399) L 01/13/24 12:55 MPV 11.0 fL (7.4-10.4) H 01/13/24 12:55 Neut % (Auto) 85.1 % 01/13/24 12:55 Lymph % (Auto) 10.4 % 01/13/24 12:55 Morgan % (Auto) 2.8 % 01/13/24 12:55 Eos % (Auto) 0.6 % 01/13/24 12:55 Baso % (Auto) 0.5 % 01/13/24 12:55 Neut # (Auto) 5.39 10^3/uL (1.8-7.7) 01/13/24 12:55 Lymph # (Auto) 0.7 10^3/uL (0.8-4.8) L 01/13/24 12:55 Morgan # (Auto) 0.2 10^3/uL (0.2-0.9) 01/13/24 12:55 Eos # (Auto) 0.0 10^3/uL (0.0-0.8) 01/13/24 12:55 Baso # (Auto) 0.0 10^3/uL (0.0-0.1) 01/13/24 12:55 Nucleated RBC % (auto) 0 % 01/13/24 12:55 Nucleated RBCs # 0.0 /100WBC 01/13/24 12:55 Specimen Type Arterial 01/13/24 13:00 Sample Site Radial, right 01/13/24 13:00 ABG pH 7.07 (7.35-7.45) L* 01/13/24 13:00 ABG pCO2 17.0 mmHg (35-45) L* 01/13/24 13:00 ABG pO2 126.0 mmHg (80.0-100.0) H 01/13/24 13:00 ABG PO2/FiO2 Ratio 600 01/13/24 13:00 ABG HCO3 4.9 mmol/L (22-26) L 01/13/24 13:00 ABG O2 Saturation 98.2 01/13/24 13:00 ABG Base Excess -23.5 mmol/L (-2.0-2.0) L 01/13/24 13:00 Thaddeus Test Pos 01/13/24 13:00 A-a O2 Gradient mmHg (5-10) 01/13/24 13:00 Hematocrit 43.1 % (42-52) 01/13/24 13:00 Hgb O2 Saturation 96.2 % (95-100) 01/13/24 13:00 Carboxyhemoglobin 0.9 %THgb (0.4-20.1) 01/13/24 13:00 Methemoglobin 1.2 % (0.4-1.5) 01/13/24 13:00 Total Hemoglobin 14.1 g/dL (14-18) 01/13/24 13:00 Sodium 130.0 mmol/L (131-143) L 01/13/24 13:00 Potassium 4.5 mmol/L (3.5-5.0) 01/13/24 13:00 Glucose 548.0 mg/dL (70-115) H 01/13/24 13:00 Ionized Calcium 1.2 mmol/L (1.1-1.4) 01/13/24 13:00 O2 Delivery Device Room air 01/13/24 13:00 FiO2 21.0 % 01/13/24 13:00 Microstrategy Developer ID [email or web address] 01/13/24 13:00 Sodium 128 mmol/L (136-145) L 01/13/24 12:55 Potassium 4.4 mmol/L (3.5-5.1) 01/13/24 12:55 Chloride 84 mmol/L (98-107) L 01/13/24 12:55 Carbon Dioxide 7 mmol/L (22-29) L* 01/13/24 12:55 Anion Gap 41.4 (5-19) H 01/13/24 12:55 BUN 27 mg/dL (6-20) H 01/13/24 12:55 Creatinine 2.2 mg/dL (0.7-1.2) H 01/13/24 12:55 GFR Calculation 32.5 mL/min (90-130) L 01/13/24 12:55 Glucose 556 mg/dL (65-115) H* 01/13/24 12:55 Calculated Osmolality 297 mOsm/kg (285-295) H 01/13/24 12:55 Calcium 9.5 mg/dL (8.5-10.5) 01/13/24 12:55 Phosphorus 5.3 mg/dL (2.5-4.5) H 01/13/24 12:55 Magnesium 2.1 mg/dL (1.7-2.3) 01/13/24 12:55 Total Bilirubin 0.3 mg/dL (0.15-1.2) 01/13/24 12:55 AST 61 U/L (0-40) H 01/13/24 12:55 ALT 59 U/L (0-41) H 01/13/24 12:55 Alkaline Phosphatase 159 U/L (40-130) H 01/13/24 12:55 Total Protein 7.0 g/dL (6.6-8.7) 01/13/24 12:55 Albumin 3.6 g/dL (3.5-5.2) 01/13/24 12:55 Globulin 3.4 g/dL (1.3-4.6) 01/13/24 12:55 Lipase 25 U/L (13-60) 01/13/24 12:55 Serum Ketones Positive (Negative) H 01/13/24 12:55 All radiology interpretation(s) finalized by discharge Discharge Plan Discharge Patient Disposition: Admitted As Inpatient Admit Provider: Joshua Vicente Clinical Impression: DKA (diabetic ketoacidosis) Condition: Stable Coding Level of Care Code ED Shipwright Helper for Jaymeg Chaka
--- NOTE | 2024-01-13 13:02 | ECG_ITS ---
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1980 Requested By: Kristian Figueroa Order Number: [id number] Reading MD: JESUS MARTE Measurements Intervals Burns Rate: 96 P: 65 IA: 171 QRS: 42 QRSD: 113 T: -4 QT: 414 QTc: 524 Interpretive Statements SINUS RHYTHM MODERATE INTRAVENTRICULAR CONDUCTION DELAY [110+ ms QRS DURATION] ST DEVIATION AND MODERATE T-WAVE ABNORMALITY, CONSIDER LATERAL ISCHEMIA [-0.1+ mV T-WAVE IN I/aVL/V5/V6] ST DEVIATION AND MODERATE T-WAVE ABNORMALITY, CONSIDER INFERIOR ISCHEMIA [-0.1+ mV T-WAVE IN II/aVF] Compared to ECG 11/06/2023 09:29:51 T-wave abnormality now present Possible ischemia now present Sinus tachycardia no longer present ST (T wave) deviation no longer present Electronically Signed On 01-14-2024 17:28:59 CUPOLA TENDER by JESUS MARTE [id number]
[2024-01-13 13:12] LABS: Blood Gas Allen Test Pos; Blood Gas Sample Site Radial, right; Blood Gas Sample Type Arterial; HCO3 ABG 4.9 mmol/L (22-26); Ionized Calcium Level - ABG 1.2 mmol/L (1.1-1.4); Oxygen Device ROOM AIR; Potassium Level - ABG 4.5 mmol/L (3.5-5.0)
[2024-01-13 13:15] LABS: ABG PH Result 7.07 (7.35-7.45); Arterial Blood Gas Hematocrit 43.1 % (42-52); Base Excess ABG -23.5 mmol/L (-2.0-2.0); Blood Gas Operator Identificat gc; Carboxyhemoglobin 0.9 %THgb (0.4-20.1); HGB O2 Sat 96.2 % (95-100); Methemoglobin 1.2 % (0.4-1.5); Oxygen Saturation ABG 98.2; PO2 FiO2 Ratio Arterial Blood 600; Total Hemoglobin 14.1 g/dL (14-18)
[2024-01-13 14:16] LABS: Basophils % 0.5 %; Eosinophils % 0.6 %; Hematocrit 39.5 % (37-53); Lymphocytes # 0.7 10^3/uL (0.8-4.8); Lymphocytes % 10.4 %; Mean Corpuscular HGB Conc 33.2 g/dL (30-55); Mean Corpuscular Volume 108.5 fl (82-101); Monocytes # 0.2 10^3/uL (0.2-0.9); Monocytes % 2.8 %; Neutrophils # 5.39 10^3/uL (1.8-7.7); Neutrophils % 85.1 %; Nucleated Red Blood Cells % 0 %; Platelet Count 124 10^3/cmm (157-399); Red Blood Count 3.64 10^6/uL (3.85-5.65); Red Cell Distribution Width 12.7 % (12.1-15.1); White Blood Count 6.34 10^3/uL (3.29-11.43)
[2024-01-13] MEDS: insulin regular-human 100 units/1 mL 10 UNIT IVP (14:16)
[2024-01-13 14:34] LABS: Alanine Aminotransferase 59 U/L (0-41); Albumin Level 3.6 g/dL (3.5-5.2); Alkaline Phosphatase 159 U/L (40-130); Anion Gap 41.4 (5-19); Aspartate Amino Transferase 61 U/L (0-40); Blood Urea Nitrogen 27 mg/dL (6-20); Calcium 9.5 mg/dL (8.5-10.5); Chloride 84 mmol/L (98-107); Creatinine Clr Calc Pharmacy 62.2706; Globulin 3.4 g/dL (1.3-4.6); Glomerular Filtration Rate 32.5 mL/min (90-130); Ketone (Acetest) Serum Positive (Negative); Lipase 25 U/L (13-60); Magnesium 2.1 mg/dL (1.7-2.3); Osmolality Calculated 297 mOsm/kg (285-295); Phosphorus 5.3 mg/dL (2.5-4.5); Potassium 4.4 mmol/L (3.5-5.1); Sodium 128 mmol/L (136-145); Total Bilirubin 0.3 mg/dL (0.15-1.2)
[2024-01-13] MEDS: sodium chloride 0.9% 1,000 ML 999 ML IV ×2 (14:36→16:30)
[2024-01-13] MEDS: sodium bicarbonate 100 MEQ in dextrose 5% 250 ML 700 MEQ IV (14:37)
[2024-01-13 14:38] LABS: Carbon Dioxide 7 mmol/L (22-29); Glucose 556 mg/dL (65-115)
[2024-01-13] MEDS: INSULIN REGULAR IN 0.9 % NACL 100 UNIT/100 ML BAG 12 UNIT IV (14:43)
--- NOTE | 2024-01-13 15:31 | P.HP_ITS ---
Providers/Chief Complaint 2 Admitting Physician: Joshua Vicente MD Chief Complaint: DKA History of Present Illness Erik Valdez is a 43 year old male has insulin-dependent diabetes mellitus, history of DKA, who presents to [facility] as for the last day he has been having nausea, vomiting, elevated blood sugars, does report abdominal pain, denies chest pain, denies palpitations, denies history of CAD, denies a history of strokes, does report drinking alcohol, last drink was last night, denies any fevers, no chills, no cough, no dysuria, no flank pain, no headache, no blurry vision Review of Systems 2 Const: Reports: fatigue and malaise; Denies: fever(s) or chills Card: Denies: chest pain Resp: Denies: dyspnea GI: Reports: abdominal pain, nausea and vomiting : Denies: flank pain Musc: Denies: neck pain or back pain Neuro: Denies: headache(s) Medications/Allergies Home Medications Medication Instructions Recorded Confirmed Last Taken Type insulin glargine 100 unit/mL (3 30 unit (0.3 mL) SUBCUT QPM #15 mL 11/07/23 01/13/24 Unknown Rx mL) subcutaneous pen (Lantus Solostar U-100 Insulin) insulin lispro 100 unit/mL 8 unit (0.08 mL) SUBCUT TID #15 mL 11/07/23 01/13/24 01/12/24 Rx subcutaneous cartridge (Humalog U-100 Insulin) losartan 50 mg tablet 25 mg (1/2 x 50 mg) PO DAILY #30 11/07/23 01/13/24 Unknown Rx tabs Allergies Allergy/AdvReac Type Severity Reaction Status Date / Time No Known Allergies Allergy Verified 11/06/23 08:56 PFSH Acute 2 PFSH: Medical History Insulin dependent diabetes mellitus Social History Smoking and tobacco/nicotine status: current every day tobacco/nicotine user Alcohol intake: current Substance/Drug Use: never Vitals/I&O/Wt Last Vital Signs Temp 98.1 F 01/13/24 12:53 Pulse 97 01/13/24 12:53 Resp 20 H 01/13/24 12:53 BP 113/61 01/13/24 12:53 Pulse Ox 98 01/13/24 12:53 O2 Del Method Room Air 01/13/24 12:53 Weight last 48 hrs Weight 122.47 kg Physical Exam 2 Const: COMMON NORMALS: no acute distress and patient oriented x3 HENMT: COMMON NORMALS: normocephalic HEAD & SCALP: normocephalic Resp: COMMON NORMALS: normal respiratory effort, No retractions, No use of accessory muscles and clear to auscultation bilaterally AUSCULTATION: clear to auscultation bilaterally OTHER: Tachypnea Cardio: COMMON NORMALS: regular rate, regular rhythm, S1 normal heart sound present and S2 normal heart sound present RATE: tachycardic RHYTHM: r egular rhythm HEART SOUNDS: S1 normal heart sound present and S2 normal heart sound present GI: COMMON NORMALS: Normal to inspection, nondistended, normoactive bowel sounds present, Soft to palpation and non-tender Extremity: COMMON NORMALS: no calf tenderness and no pedal edema Neuro: COMMON NORMALS: patient oriented x3, CN's II-XII intact bilaterally and moves all extremities Psych: COMMON NORMALS: mental status grossly normal Data 01/13/24 12:55 01/13/24 12:55 A&P Assessment and plan (1) Insulin dependent diabetes mellitus: (2) DKA (diabetic ketoacidosis): (3) Alcoholism: Plan Diabetic ketoacidosis Plan -Monitor in ICU -DKA protocol -Insulin drip -Monitor blood sugars hourly -Maintain potassium greater than 4.5 -If potassium drops below 3.5 hold drip replace potassium -Monitor bicarb, will consider bicarb drip based on clinical progress -Currently on normal saline at 150 cc an hour -Once blood sugar is less than 200, switch to D5 half-normal saline with 20 KCl -Once anion gap is less than 14, will overlap with Lantus for about an hour with insulin drip, discontinue insulin drip, and transition to subcu insulin -For now sips and chips -Patient does report a history of alcoholism, blood alcohol level, urine toxicology screen, CIWA protocol -Transaminitis, likely second alcoholism, will consider liver ultrasound -Full code - Attestations 2 Medical Necessity Statement*: Patient requires hospitalization, inpatient, greater than 2 midnights for diabetic ketoacidosis, alcoholism Coding Level of Care Code Critical Care >/= 30 minutes Critical care time (in minutes): 45 The high probability of a clinically significant, sudden or life threatening deterioration, as referenced in this documentation, required my full and direct attention, intervention and personal management. The critical care time shown is in addition to time spent performing any reported separately billable procedures and includes the following: [x] Data and vital sign review and interpretation [x ] Patient assessment, examination and intervention [x] Medication orders and management [x] Patient/Family updates as able [x] Care Coordination and Documentation. Diagnoses Insulin dependent diabetes mellitus DKA (diabetic ketoacidosis) E11.10 Alcoholism F10.20
[2024-01-13 15:32] LABS: Glucose Point of Care 505 mg/dL (70-110)
[2024-01-13 16:34] LABS: Glucose Point of Care 377 mg/dL (70-110)
[2024-01-13] MEDS: enoxaparin 40 mg/0.4 mL Syringe SUBCUT (16:34)
[2024-01-13] MEDS: pantoprazole 40 mg SDV IVP (16:34)
[2024-01-13] MEDS: ondansetron 2 mg/ML SDV 2 mL 4 MG IVP (16:59)
[2024-01-13] MEDS: sodium chloride 0.9% 1,000 ML 150 ML IV (17:14)
[2024-01-13 18:05] LABS: Glucose Point of Care 260 mg/dL (70-110)
[2024-01-13 19:16] LABS: Glucose Point of Care 225 mg/dL (70-110)
[2024-01-13] MEDS: dextrose 5%-sod chloride 0.45% 1,000 ML 125 ML IV (19:22)
[2024-01-13] MEDS: INSULIN REGULAR IN 0.9 % NACL 100 UNIT/100 ML BAG 20 UNIT IV (19:33)
[2024-01-13 19:42] LABS: Lactic Sepsis W/Reflex 3.7 mmol/L (0.5-2.2)
[2024-01-13 20:00] LABS: NT Pro B Type Natriuretic Pept 646 pg/mL (0-125); Procalcitonin 0.72 ng/mL (0-0.5); Thyroid Stimulating Hormone 1.19 uIU/mL (0.27-4.20); Vitamin B12 718 pg/mL (232-1245)
[2024-01-13 20:03] LABS: Folate Level 3.6 ng/mL (4.5-32.2)
[2024-01-13 20:14] LABS: Anion Gap 27.9 (5-19); Blood Urea Nitrogen 28 mg/dL (6-20); C Reactive Protein 7.2 mg/L (0.0-4.9); Calcium 8.3 mg/dL (8.5-10.5); Carbon Dioxide 15 mmol/L (22-29); Chloride 95 mmol/L (98-107); Chol HDL Ratio 2.88 mg/dL (1.0-5.00); Cholesterol 193 mg/dL (0-200); Creatinine Clr Calc Pharmacy 68.6375; Glomerular Filtration Rate 36.3 mL/min (90-130); Glucose 233 mg/dL (65-115); HDL Cholesterol 67 mg/dL (60-100); LDL Cholesterol Calculated 94 mg/dL (50-129); Osmolality Calculated 291 mOsm/kg (285-295); Potassium 3.9 mmol/L (3.5-5.1); Sodium 134 mmol/L (136-145); Triglycerides 161 mg/dL (0-150)
[2024-01-13 20:15] LABS: Alcohol Level < 10 mg/dL (0-10)
[2024-01-13 20:59] LABS: Glucose Point of Care 123 mg/dL (70-110)
[2024-01-13 21:07] LABS: Reflex Lactate Order REFLEX LACTIC ORDERD
[2024-01-13 21:46] LABS: Glucose Point of Care 114 mg/dL (70-110)
[2024-01-13 22:00] LABS: Bilirubin Urine Negative (Negative); Blood Urine 2+ (Negative); Glucose Urine UA 3+ (Normal); Ketones Urine 3+ (Negative); Leukocyte Esterase Urine Negative (Negative); Nitrate Urine Negative (Negative); Protein Urine 3+ (Negative); Specific Gravity, Urine 1.017 (1.005-1.030); Urine Appearance Clear (CLEAR); Urine Color Yellow (Yellow); pH Urine 5.5 (5-7)
[2024-01-13 22:05] LABS: Add Urine Microscopic? YES; Bacteria Urine None Seen /hpf; Hyaline Casts Urine 5.36 /lpf; RBC Urine 0-2 /hpf (0-2); Squamous Epithelial Cell Urine 0-5 /hpf (0-5); WBC Urine 0-5 /hpf (0-5)
[2024-01-13 22:12] LABS: Lactic Acid level (Lactate) 3.6 mmol/L (0.5-2.2)
--- NOTE | 2024-01-13 23:18 | PC.NURSE ---
Contacted Dr. Alexander in reference to patient asking for something to help him sleep. Received orders for 1mg PO ativan once.
[2024-01-13 23:24] LABS: Blood Urea Nitrogen 29 mg/dL (6-20); Calcium 7.5 mg/dL (8.5-10.5); Carbon Dioxide 22 mmol/L (22-29); Chloride 98 mmol/L (98-107); Creatinine Clr Calc Pharmacy 68.6375; Glomerular Filtration Rate 36.3 mL/min (90-130); Glucose 113 mg/dL (65-115); Osmolality Calculated 289 mOsm/kg (285-295); Sodium 136 mmol/L (136-145)
[2024-01-13 23:24] LABS: Glucose Point of Care 110 mg/dL (70-110)
[2024-01-13] MEDS: nicotine 21 mg Patch 1 PATCH TRANSDERMA (23:33)
[2024-01-14] VITALS (41 sets, daily range): BP systolic 122–184; BP diastolic 57–107; PULSE 76–96; RESP 6–24; TEMP 36.5–37.6; O2SAT 94–100
[2024-01-14] MEDS: LORazepam 1 mg Tablet PO (00:09)
[2024-01-14 00:17] LABS: Glucose Point of Care 134 mg/dL (70-110)
[2024-01-14 01:19] LABS: Blood Urea Nitrogen 29 mg/dL (6-20); Calcium 7.3 mg/dL (8.5-10.5); Carbon Dioxide 22 mmol/L (22-29); Chloride 99 mmol/L (98-107); Creatinine Clr Calc Pharmacy 76.2639; Glucose 141 mg/dL (65-115); Osmolality Calculated 288 mOsm/kg (285-295); Sodium 135 mmol/L (136-145)
[2024-01-14 01:20] LABS: Anion Gap 18.3 (5-19); Potassium 4.3 mmol/L (3.5-5.1)
[2024-01-14 01:41] LABS: Glucose Point of Care 166 mg/dL (70-110)
[2024-01-14 02:15] LABS: Glucose Point of Care 131 mg/dL (70-110)
--- NOTE | 2024-01-14 02:42 | PC.NURSE ---
Contacted Dr. Alexander at [phone] in reference to this patient asking for a nicotine patch. Orders received for a 21mg patch.
[2024-01-14] MEDS: dextrose 5%-sod chloride 0.45% 1,000 ML 125 ML IV (03:15)
[2024-01-14 03:20] LABS: Glucose Point of Care 180 mg/dL (70-110)
[2024-01-14 04:08] LABS: Glucose Point of Care 200 mg/dL (70-110)
[2024-01-14] MEDS: ondansetron 2 mg/ML SDV 2 mL 4 MG IVP (04:34)
[2024-01-14 05:40] LABS: Basophils % 0.4 %; Eosinophils % 0.1 %; Hematocrit 35.5 % (37-53); Lymphocytes # 0.9 10^3/uL (0.8-4.8); Lymphocytes % 11.4 %; Mean Corpuscular HGB Conc 33.5 g/dL (30-55); Mean Corpuscular Hemoglobin 34.8 pg (27-33); Mean Corpuscular Volume 103.8 fl (82-101); Mean Platelet Volume 10.9 fL (7.4-10.4); Monocytes # 0.7 10^3/uL (0.2-0.9); Monocytes % 8.9 %; Neutrophils # 5.96 10^3/uL (1.8-7.7); Neutrophils % 78.9 %; Nucleated Red Blood Cells % 0 %; Platelet Count 108 10^3/cmm (157-399); Red Blood Count 3.42 10^6/uL (3.85-5.65); Red Cell Distribution Width 12.4 % (12.1-15.1); White Blood Count 7.55 10^3/uL (3.29-11.43)
[2024-01-14 05:42] LABS: Glucose Point of Care 218 mg/dL (70-110)
[2024-01-14 06:03] LABS: Blood Urea Nitrogen 27 mg/dL (6-20); Calcium 7.1 mg/dL (8.5-10.5); Carbon Dioxide 17 mmol/L (22-29); Chloride 97 mmol/L (98-107); Glomerular Filtration Rate 43.8 mL/min (90-130); Glucose 178 mg/dL (65-115); Osmolality Calculated 288 mOsm/kg (285-295); Sodium 134 mmol/L (136-145)
[2024-01-14 06:04] LABS: Magnesium 1.8 mg/dL (1.7-2.3); Phosphorus 1.6 mg/dL (2.5-4.5)
[2024-01-14 06:09] LABS: Anion Gap 24.1 (5-19); Potassium 4.1 mmol/L (3.5-5.1)
[2024-01-14] MEDS: D5-NS 0.45% + KCL 20 mEq 20 MEQ/1,000 ML BAG 125 MEQ IV (06:19)
[2024-01-14 06:27] LABS: Glucose Point of Care 211 mg/dL (70-110)
[2024-01-14 07:36] LABS: Glucose Point of Care 221 mg/dL (70-110)
[2024-01-14] MEDS: thiamine 100 mg Tablet PO (08:54)
[2024-01-14] MEDS: nicotine 21 mg Patch 1 PATCH TRANSDERMA (08:54)
[2024-01-14] MEDS: folic acid 1 mg Tablet PO (08:54)
[2024-01-14] MEDS: multivitamin therapeutic Tablet 1 TAB PO (08:54)
[2024-01-14 08:56] LABS: Anion Gap 19.9 (5-19); Blood Urea Nitrogen 25 mg/dL (6-20); Calcium 8.2 mg/dL (8.5-10.5); Carbon Dioxide 19 mmol/L (22-29); Chloride 98 mmol/L (98-107); Creatinine Clr Calc Pharmacy 81.3852; Glomerular Filtration Rate 43.8 mL/min (90-130); Glucose 229 mg/dL (65-115); Osmolality Calculated 288 mOsm/kg (285-295); Potassium 3.9 mmol/L (3.5-5.1); Sodium 133 mmol/L (136-145)
[2024-01-14 10:27] LABS: Glucose Point of Care 244 mg/dL (70-110)
[2024-01-14] MEDS: amlodipine 10 mg Tablet PO (11:59)
[2024-01-14] MEDS: morphine 4 mg/mL SDV 1 mL 2 MG IVP ×3 (12:03→21:28)
[2024-01-14 12:33] LABS: Blood Urea Nitrogen 24 mg/dL (6-20); Calcium 7.7 mg/dL (8.5-10.5); Carbon Dioxide 18 mmol/L (22-29); Chloride 96 mmol/L (98-107); Creatinine Clr Calc Pharmacy 92.2366; Glomerular Filtration Rate 50.6 mL/min (90-130); Glucose 275 mg/dL (65-115); Osmolality Calculated 284 mOsm/kg (285-295); Sodium 130 mmol/L (136-145)
[2024-01-14 12:35] LABS: Anion Gap 20.2 (5-19); Potassium 4.2 mmol/L (3.5-5.1)
[2024-01-14 13:38] LABS: Glucose Point of Care 276 mg/dL (70-110)
--- NOTE | 2024-01-14 14:01 | PC.NURSE ---
Anion gap not decreasing, Insulin was running at 1 unit/hr, Dr. Vicente gave v.o. to increase dextrose fluids to 150 ml/hr
[2024-01-14] MEDS: pantoprazole 40 mg SDV IVP (14:40)
[2024-01-14] MEDS: enoxaparin 40 mg/0.4 mL Syringe SUBCUT (14:40)
[2024-01-14] MEDS: D5-NS 0.45% + KCL 20 mEq 20 MEQ/1,000 ML BAG 150 MEQ IV ×2 (14:45→22:04)
[2024-01-14 14:47] LABS: Glucose Point of Care 265 mg/dL (70-110)
[2024-01-14] MEDS: acetaminophen 325 mg Tablet 650 MG PO (14:49)
--- NOTE | 2024-01-14 15:22 | US_ITS ---
WS: [id number] ULTRASOUND ABDOMEN CLINICAL INFORMATION: liver , galbladder COMPARISON: None. FINDINGS: Technically difficult study. Midline structures not well visualized. Liver Size: Enlarged Craniocaudal length: 20.0 cm. Echogenicity: Fatty Surface nodularity: None. Mass (size and location): None. Bile ducts Intrahepatic ducts: Normal. Common bile duct diameter: 1.0 cm. Gallbladder Cholecystectomy Pancreas Not well visualized Spleen Splenomegaly: None. Craniocaudal length: 12.2 cm. Right kidney: Horseshoe kidneys Hydronephrosis: None. Size: 10.5 cm x 4.1 cm x 4.6 cm Left kidney: Horseshoe kidneys Hydronephrosis: None. Size: 10.7 cm x 4.5 cm x 4.2 cm. Abdominal aorta and IVC Visualized portions are normal. Ascites: None. US/US abdomen complete* [id number] IMPRESSION: 1. Hepatomegaly with diffuse fatty infiltration of the liver. 2. Prior cholecystectomy. Prominent common bile duct measuring 10 mm most like ly physiologic postcholecystectomy. 3. Horseshoe kidneys. No hydronephrosis in either kidney.
--- NOTE | 2024-01-14 15:25 | PM.PN ---
Subjective Subjective: Patient was seen this morning, he is alert oriented x 3, following all commands, no nausea, no vomiting, no fevers, no chills, he is anion gap following remains on the insulin drip, will continue to monitor blood pressures are elevated, denies any headache, no blurry vision, no chest pain Vitals/I&O/Wt Last Vital Signs Temp 99.4 F 01/14/24 04:00 Pulse 87 01/14/24 12:00 Resp 14 01/14/24 12:03 BP 184/107 01/14/24 12:00 Pulse Ox 100 01/14/24 12:00 O2 Del Method Room Air 01/14/24 04:00 01/14/24 01/14/24 01/14/24 06:59 14:59 22:59 Intake Total 1377.116 / 2303.463 6904.333 / 1009.333 Balance 1377.116 / 9993.700 3112.333 / 1009.333 Weight last 48 hrs Weight 125.046 kg Weight 123 kg Weight 122.47 kg Physical Exam Const: COMMON NORMALS: no acute distress and patient oriented x3 Resp: COMMON NORMALS: normal respiratory effort, No retractions, No use of accessory muscles and clear to auscultation bilaterally AUSCULTATION: clear to auscultation bilaterally Cardio: COMMON NORMALS: regular rate, regular rhythm, S1 normal heart sound present and S2 normal heart sound present RATE: regular rate RHYTHM: regular rhythm HEART SOUNDS: S1 normal heart sound present and S2 normal heart sound present GI: COMMON NORMALS: Normal to inspection, nondistended, normoactive bowel sounds present and non-tender Extremity: COMMON NORMALS: no clubbing, cyanosis or edema and no pedal edema Neuro: COMMON NORMALS: patient oriented x3 Psych: COMMON NORMALS: mental status grossly normal Data 01/14/24 04:20 01/14/24 12:02 Micro: Microbiology 01/13/24 17:27 Blood Culture - Preliminary Blood SPECIMEN COLLECTED 01/13/24 17:33 Blood Culture - Preliminary Blood SPECIMEN COLLECTED A&P Assessment and plan (1) Insulin dependent diabetes mellitus: (2) DKA (diabetic ketoacidosis): (3) Alcoholism: Plan Diabetic ketoacidosis Plan -Monitor in ICU -DKA protocol -Insulin drip -Monitor blood sugars hourly -Maintain potassium greater than 4.5 -If potassium drops below 3.5 hold drip replace potassium -Monitor bicarb, will consider bicarb drip based on clinical progress -Currently on normal saline at 150 cc an hour -Once blood sugar is less than 200, switch to D5 half-normal saline with 20 KCl -Once anion gap is less than 14, will overlap with Lantus for about an hour with insulin drip, discontinue insulin drip, and transition to subcu insulin -For now sips and chips -Patient does report a history of alcoholism, blood alcohol level, urine toxicology screen, [facility] protocol -Transaminitis, likely second alcoholism, will consider liver ultrasound -Full code - Remains in DKA, continue insulin drip, ultrasound abdomen Attestations Medical Necessity Statement*: Patient requires hospitalization for DKA Diagnoses Insulin dependent diabetes mellitus DKA (diabetic ketoacidosis) E11.10 Alcoholism F10.20
[2024-01-14] MEDS: cloNIDine 0.1 mg Tablet PO (15:39)
[2024-01-14 17:32] LABS: Glucose Point of Care 223 mg/dL (70-110)
[2024-01-14 19:24] LABS: Glucose Point of Care 160 mg/dL (70-110)
[2024-01-14 20:30] LABS: Glucose Point of Care 177 mg/dL (70-110)
[2024-01-14 20:57] LABS: Anion Gap 12.6 (5-19); Blood Urea Nitrogen 19 mg/dL (6-20); Calcium 8.2 mg/dL (8.5-10.5); Carbon Dioxide 23 mmol/L (22-29); Chloride 99 mmol/L (98-107); Creatinine Clr Calc Pharmacy 106.4268; Glomerular Filtration Rate 59.7 mL/min (90-130); Glucose 168 mg/dL (65-115); Osmolality Calculated 278 mOsm/kg (285-295); Potassium 3.6 mmol/L (3.5-5.1); Sodium 131 mmol/L (136-145)
[2024-01-14] MEDS: insulin glargine 100 units/1 mL 26 UNIT SUBCUT (22:03)
[2024-01-14 22:16] LABS: Glucose Point of Care 184 mg/dL (70-110)
[2024-01-14 23:22] LABS: Glucose Point of Care 192 mg/dL (70-110)
[2024-01-15] VITALS (15 sets, daily range): BP systolic 112–165; BP diastolic 75–102; PULSE 72–86; RESP 12–19; TEMP 36.3; O2SAT 95–100
[2024-01-15 00:06] LABS: Glucose Point of Care 244 mg/dL (70-110)
[2024-01-15] MEDS: cloNIDine 0.1 mg Tablet PO (02:55)
[2024-01-15] MEDS: morphine 4 mg/mL SDV 1 mL 2 MG IVP ×2 (03:23→09:36)
[2024-01-15 03:53] LABS: Basophils % 0.2 %; Eosinophils % 0.8 %; Hematocrit 36.5 % (37-53); Lymphocytes # 1.1 10^3/uL (0.8-4.8); Lymphocytes % 20.5 %; Mean Corpuscular HGB Conc 35.1 g/dL (30-55); Mean Corpuscular Volume 102.5 fl (82-101); Mean Platelet Volume 9.9 fL (7.4-10.4); Monocytes # 0.3 10^3/uL (0.2-0.9); Monocytes % 4.8 %; Neutrophils # 3.79 10^3/uL (1.8-7.7); Neutrophils % 73.5 %; Nucleated Red Blood Cells % 0 %; Platelet Count 113 10^3/cmm (157-399); Red Blood Count 3.56 10^6/uL (3.85-5.65); Red Cell Distribution Width 12.1 % (12.1-15.1); White Blood Count 5.16 10^3/uL (3.29-11.43)
[2024-01-15 04:11] LABS: Alanine Aminotransferase 40 U/L (0-41); Alkaline Phosphatase 121 U/L (40-130); Anion Gap 14.7 (5-19); Aspartate Amino Transferase 39 U/L (0-40); Blood Urea Nitrogen 16 mg/dL (6-20); Calcium 7.5 mg/dL (8.5-10.5); Carbon Dioxide 20 mmol/L (22-29); Chloride 102 mmol/L (98-107); Creatinine Clr Calc Pharmacy 115.2957; Globulin 1.9 g/dL (1.3-4.6); Glomerular Filtration Rate 65.5 mL/min (90-130); Glucose 222 mg/dL (65-115); Osmolality Calculated 284 mOsm/kg (285-295); Potassium 3.7 mmol/L (3.5-5.1); Sodium 133 mmol/L (136-145); Total Bilirubin 0.4 mg/dL (0.15-1.2); Total Protein 4.9 g/dL (6.6-8.7)
[2024-01-15 04:18] LABS: Magnesium 1.6 mg/dL (1.7-2.3); Phosphorus 1.6 mg/dL (2.5-4.5)
[2024-01-15 08:09] LABS: Glucose Point of Care 234 mg/dL (70-110)
[2024-01-15] MEDS: nicotine 21 mg Patch 1 PATCH TRANSDERMA (08:34)
[2024-01-15] MEDS: folic acid 1 mg Tablet PO (08:35)
[2024-01-15] MEDS: multivitamin therapeutic Tablet 1 TAB PO (08:35)
[2024-01-15] MEDS: thiamine 100 mg Tablet PO (08:35)
[2024-01-15] MEDS: amlodipine 10 mg Tablet PO (08:35)
[2024-01-15] MEDS: insulin lispro 100 unit/1 mL SUBCUT ×2 (08:35→11:52)
--- NOTE | 2024-01-15 11:16 | PM.DCS ---
Discharge Providers Date of Admission: 01/13/24 15:14 Date of Discharge: January 15, 2024 Attending Provider at Admission: Joshua Vicente MD Attending Provider at Discharge: Joshua Vicente MD Diagnoses at Discharge Discharge Diagnosis (1) Insulin dependent diabetes mellitus: Status: Acute (2) DKA (diabetic ketoacidosis): Status: Resolved (3) Alcoholism: Status: Acute Reason for Visit Reason for Visit: DKA Hospital Course Hospital Course Erik Valdez is a 43 year old male has insulin-dependent diabetes mellitus, history of DKA, who presents to [facility] as for the last day he has been having nausea, vomiting, elevated blood sugars, does report abdominal pain, denies chest pain, denies palpitations, denies history of CAD, denies a history of strokes, does report drinking alcohol, last drink was last night, denies any fevers, no chills, no cough, no dysuria, no flank pain, no headache, no blurry vision Patient was admitted to [facility] for diabetic ketoacidosis, monitored in the ICU, managed on insulin drip, DKA protocol, overall clinically improved, anion gap closed, transition to subcu insulin with Lantus. Was monitored thereafter, blood sugars reasonable, had discussion with him about diabetic education, monitoring his blood sugars closely, morbidity mortality associated with diabetic ketoacidosis, he voiced understanding of all close answered. Will be discharged on Lantus and NovoLog sliding scale with instructions as below For his history of alcoholism, monitored for alcohol withdrawal, no significant withdrawal symptoms, discharged on thiamine, folic acid. On discharge had a detailed discussion with him about abstaining for alcohol For his hypertension, discharged amlodipine, clonidine, with close follow-up with primary care provider for recheck blood pressure - Please stop alcohol consumption -Please take thiamine, folic acid as prescribed -Inject Lantus 30 units in the evening -Please monitor your blood sugars closely -Monitor your blood sugars 3 times daily as after meals -Please record your blood sugars, and a blood sugar log -For your NovoLog -Please inject blood sugar after meals based on sliding scale provided -Do not inject insulin if you do not eat as hypoglycemia kills -This is a NovoLog sliding scale -Insulin sliding ?fingerstick? Insulin ?141-180?0 units/sq 181-220?2 units/sq ?221-260?4 units/sq ?261-300 6 units/sq ?301-350?8 units/sq ?351-400 10 units/sq ?401-450?12 units/sq >450? 14units/sq -If your blood sugar is greater than 500 go to the emergency room -If your blood sugar is less than 60 or at anytime you feel lightheaded or dizzy or diaphoretic or have chest palpitations check your blood sugar, and eat a hard candy or drink orange juice and go immediately to the emergency room -Remember hypoglycemia kills, so if his blood sugar is less than 60 we have to increase it by taking in a sugary meal such as a hard candy or orange juice and go to the emergency room -If you have any questions please call us where here to help Physical Exam Const: COMMON NORMALS: no acute distress and patient oriented x3 Resp: COMMON NORMALS: normal respiratory effort, No retractions, No use of accessory muscles and clear to auscultation bilaterally AUSCULTATION: clear to auscultation bilaterally Cardio: COMMON NORMALS: regular rate, regular rhythm, S1 normal heart sound present and S2 normal heart sound present RATE: regular rate RHYTHM: regular rhythm HEART SOUNDS: S1 normal heart sound present and S2 normal heart sound present GI: COMMON NORMALS: Normal to inspection, nondistended, normoactive bowel sounds present and non-tender Extremity: COMMON NORMALS: no pedal edema Neuro: COMMON NORMALS: patient oriented x3 Psych: COMMON NORMALS: mental status grossly normal Discharge Data Studies Completed and Pending Completed Studies During Hospitalization Category Date Time Status XR chest 1V portable [id number] Stat Exams 01/13/24 12:55 Completed US abdomen complete* [id number] Routine Ultrasound 01/14/24 15:22 Completed Pending at discharge Category Date Time Status Blood Culture Routine Lab 01/13/24 17:27 Results Complete Blood Count w/Auto AM LABS Lab 01/16/24 04:00 Ordered Magnesium AM LABS Lab 01/16/24 04:00 Ordered Phosphorus AM LABS Lab 01/16/24 04:00 Ordered Radiology Impressions Chest X-Ray 01/13/24 12:55 IMPRESSION: 1. No acute cardiopulmonary finding. Abdomen Ultrasound 01/14/24 15:22 IMPRESSION: 1. Hepatomegaly with diffuse fatty infiltration of the liver. 2. Prior cholecystectomy. Prominent common bile duct measuring 10 mm most likely physiologic postcholecystectomy. 3. Horseshoe kidneys. No hydronephrosis in either kidney. Laboratory Results WBC 5.16 10^3/uL (3.29-11.43) 01/15/24 03:33 RBC 3.56 10^6/uL (3.85-5.65) L 01/15/24 03:33 Hgb 12.80 g/dL (11.27-16.99) 01/15/24 03:33 Hct 36.5 % (37-53) L 01/15/24 03:33 MCV 102.5 fl (82-101) H 01/15/24 03:33 MCH 36.0 pg (27-33) H 01/15/24 03:33 MCHC 35.1 g/dL (30-55) 01/15/24 03:33 RDW 12.1 % (12.1-15.1) 01/15/24 03:33 Plt Count 113 10^3/cmm (157-399) L 01/15/24 03:33 MPV 9.9 fL (7.4-10.4) 01/15/24 03:33 Neut % (Auto) 73.5 % 01/15/24 03:33 Lymph % (Auto) 20.5 % 01/15/24 03:33 [place] % (Auto) 4.8 % 01/15/24 03:33 Eos % (Auto) 0.8 % 01/15/24 03:33 Baso % (Auto) 0.2 % 01/15/24 03:33 Neut # (Auto) 3.79 10^3/uL (1.8-7.7) 01/15/24 03:33 Lymph # (Auto) 1.1 10^3/uL (0.8-4.8) 01/15/24 03:33 [place] # (Auto) 0.3 10^3/uL (0.2-0.9) 01/15/24 03:33 Eos # (Auto) 0.0 10^3/uL (0.0-0.8) 01/15/24 03:33 Baso # (Auto) 0.0 10^3/uL (0.0-0.1) 01/15/24 03:33 Nucleated RBC % (auto) 0 % 01/15/24 03:33 Nucleated RBCs # 0.0 /100WBC 01/15/24 03:33 Specimen Type Arterial 01/13/24 13:00 Sample Site Radial, right 01/13/24 13:00 ABG pH 7.07 (7.35-7.45) L* 01/13/24 13:00 ABG pCO2 17.0 mmHg (35-45) L* 01/13/24 13:00 ABG pO2 126.0 mmHg (80.0-100.0) H 01/13/24 13:00 ABG PO2/FiO2 Ratio 600 01/13/24 13:00 ABG HCO3 4.9 mmol/L (22-26) L 01/13/24 13:00 ABG O2 Saturation 98.2 01/13/24 13:00 ABG Base Excess -23.5 mmol/L (-2.0-2.0) L 01/13/24 13:00 Thaddeus Test Pos 01/13/24 13:00 A-a O2 Gradient mmHg (5-10) 01/13/24 13:00 Hematocrit 43.1 % (42-52) 01/13/24 13:00 Hgb O2 Saturation 96.2 % (95-100) 01/13/24 13:00 Carboxyhemoglobin 0.9 %THgb (0.4-20.1) 01/13/24 13:00 Methemoglobin 1.2 % (0.4-1.5) 01/13/24 13:00 Total Hemoglobin 14.1 g/dL (14-18) 01/13/24 13:00 Sodium 130.0 mmol/L (131-143) L 01/13/24 13:00 Potassium 4.5 mmol/L (3.5-5.0) 01/13/24 13:00 Glucose 548.0 mg/dL (70-115) H 01/13/24 13:00 Ionized Calcium 1.2 mmol/L (1.1-1.4) 01/13/24 13:00 O2 Delivery Device Room air 01/13/24 13:00 FiO2 21.0 % 01/13/24 13:00 Charge Preparation Technician ID gc 01/13/24 13:00 Sodium 133 mmol/L (136-145) L 01/15/24 03:33 Potassium 3.7 mmol/L (3.5-5.1) 01/15/24 03:33 Chloride 102 mmol/L (98-107) 01/15/24 03:33 Carbon Dioxide 20 mmol/L (22-29) L 01/15/24 03:33 Anion Gap 14.7 (5-19) 01/15/24 03:33 BUN 16 mg/dL (6-20) 01/15/24 03:33 Creatinine 1.2 mg/dL (0.7-1.2) 01/15/24 03:33 GFR Calculation 65.5 mL/min (90-130) L 01/15/24 03:33 Glucose 222 mg/dL (65-115) H 01/15/24 03:33 POC Glucose 234 mg/dL (70-110) H 01/15/24 07:55 Calculated Osmolality 284 mOsm/kg (285-295) L 01/15/24 03:33 Lactic Acid 3.7 mmol/L (0.5-2.2) H 01/13/24 19:05 Lactic Acid (Sepsis) 3.6 mmol/L (0.5-2.2) H 01/13/24 21:29 Calcium 7.5 mg/dL (8.5-10.5) L 01/15/24 03:33 Phosphorus 1.6 mg/dL (2.5-4.5) L 01/15/24 03:33 Magnesium 1.6 mg/dL (1.7-2.3) L 01/15/24 03:33 Total Bilirubin 0.4 mg/dL (0.15-1.2) 01/15/24 03:33 AST 39 U/L (0-40) 01/15/24 03:33 ALT 40 U/L (0-41) 01/15/24 03:33 Alkaline Phosphatase 121 U/L (40-130) 01/15/24 03:33 C-Reactive Protein 7.2 mg/L (0.0-4.9) H 01/13/24 19:05 NT-Pro-B Natriuret Pep 646 pg/mL (0-125) H 01/13/24 19:05 Total Protein 4.9 g/dL (6.6-8.7) L 01/15/24 03:33 Albumin 3.0 g/dL (3.5-5.2) L 01/15/24 03:33 Globulin 1.9 g/dL (1.3-4.6) 01/15/24 03:33 Triglycerides 161 mg/dL (0-150) H 01/13/24 19:05 Cholesterol 193 mg/dL (0-200) 01/13/24 19:05 LDL Cholesterol, Calc 94 mg/dL (50-129) 01/13/24 19:05 HDL Cholesterol 67 mg/dL (60-100) 01/13/24 19:05 LDL/HDL Ratio 1.40 RATIO (0.00-3.22) 01/13/24 19:05 Cholesterol/HDL Ratio 2.88 mg/dL (1.0-5.00) 01/13/24 19:05 Lipase 25 U/L (13-60) 01/13/24 12:55 Vitamin B12 718 pg/mL (232-1245) 01/13/24 19:05 Folate 3.6 ng/mL (4.5-32.2) L 01/13/24 19:05 Procalcitonin 0.72 ng/mL (0-0.5) H 01/13/24 19:05 TSH 1.19 uIU/mL (0.27-4.20) 01/13/24 19:05 Urine Color Yellow (Yellow) 01/13/24 21:15 Urine Appearance Clear (CLEAR) 01/13/24 21:15 Urine pH 5.5 (5-7) 01/13/24 21:15 Ur Specific [place] 1.017 (1.005-1.030) 01/13/24 21:15 Urine Protein 3+ (Negative) A 01/13/24 21:15 Urine Glucose (UA) 3+ (Normal) H 01/13/24 21:15 Urine Ketones 3+ (Negative) H 01/13/24 21:15 Urine Blood 2+ (Negative) A 01/13/24 21:15 Urine Nitrate Negative (Negative) 01/13/24 21:15 Urine Bilirubin Negative (Negative) 01/13/24 21:15 Urine Urobilinogen 1.0 mg/dL (Negative) 01/13/24 21:15 Ur Leukocyte Esterase Negative (Negative) 01/13/24 21:15 Urine RBC 0-2 /hpf (0-2) 01/13/24 21:15 Urine WBC 0-5 /hpf (0-5) 01/13/24 21:15 Ur Squamous Epith Cells 0-5 /hpf (0-5) 01/13/24 21:15 Amorphous Sediment Not Reportable 01/13/24 21:15 Urine Bacteria None seen /hpf (NONE) 01/13/24 21:15 Hyaline Casts 5.36 /lpf 01/13/24 21:15 Ethyl Alcohol < 10 mg/dL (0-10) 01/13/24 19:05 Serum Ketones Positive (Negative) H 01/13/24 12:55 Vitals Last Vital Signs Temp 97.3 F L 01/15/24 05:11 Pulse 73 01/15/24 08:00 Resp 18 01/15/24 09:36 BP 148/90 01/15/24 08:00 Pulse Ox 95 01/15/24 09:36 O2 Del Method Room Air 01/14/24 04:00 Discharge Plan Discharge Patient Disposition: Home Condition: Stable Prescriptions: New clonidine HCl 0.1 mg Tablet 0.1 mg PO Q12H 30 Days Qty: 60 0RF amlodipine 10 mg Tablet 10 mg PO DAILY 30 Days Qty: 30 0RF folic acid 1 mg Tablet 1 mg PO DAILY 30 Days Qty: 30 0RF thiamine mononitrate (vit B1) [Vitamin B-1 (mononitrate)] 100 mg Tablet 100 mg PO DAILY 30 Days Qty: 30 0RF insulin glargine [Lantus Solostar U-100 Insulin] 100 unit/mL (3 mL) insulin pen 30 unit SUBCUT QPM 60 Days Qty: 20 0RF insulin aspart U-100 [Novolog FlexPen U-100 Insulin] 100 unit/mL (3 mL) insulin pen See Rx Instructions .ROUTE .COMPLEX Qty: 30 0RF Rx Instructions: Inject, subcut, 3 times daily, after meals, based on sliding scale provided Discontinued losartan 50 mg Tablet 25 mg PO DAILY Qty: 30 0RF insulin glargine [Lantus Solostar U-100 Insulin] 100 unit/mL (3 mL) insulin pen 30 unit SUBCUT QPM Qty: 15 0RF Humalog U-100 Insulin 100 unit/mL cartridge 8 unit SUBCUT TID Qty: 15 0RF Discharge Orders: Discharge Order (Routine); Ordered 11/21/24 Ordered By: Joshua Vicente Referrals: Josué Kapoor MD [Physician] - 03/15/24 10:00 am (If you cannot keep this appointment for some reason please call the clinic to reschedule or cancel. ) Discharge Diet: Cardiac Discharge Activity: Resume usual activity Patient Instructions: Opioid Safety Activity Restrictions/Additional Instructions: - Please stop alcohol consumption -Please take thiamine, folic acid as prescribed -Inject Lantus 30 units in the evening -Please monitor your blood sugars closely -Monitor your blood sugars 3 times daily as after meals -Please record your blood sugars, and a blood sugar log -For your NovoLog -Please inject blood sugar after meals based on sliding scale provided -Do not inject insulin if you do not eat as hypoglycemia kills -This is a NovoLog sliding scale -Insulin sliding ?fingerstick? Insulin ?141-180?0 units/sq 181-220?2 units/sq ?221-260?4 units/sq ?261-300 6 units/sq ?301-350?8 units/sq ?351-400 10 units/sq ?401-450?12 units/sq >450? 14units/sq -If your blood sugar is greater than 500 go to the emergency room -If your blood sugar is less than 60 or at anytime you feel lightheaded or dizzy or diaphoretic or have chest palpitations check your blood sugar, and eat a hard candy or drink orange juice and go immediately to the emergency room -Remember hypoglycemia kills, so if his blood sugar is less than 60 we have to increase it by taking in a sugary meal such as a hard candy or orange juice and go to the emergency room -If you have any questions please call us where here to help Discharge Attestations Time Spent in Discharge Care*: greater than 30 min Quality Metrics Clinical Quality Measures [ No reported AMI, CVA or VTE this stay] Coding Level of Care Code Acute Code for Chg Fwd Diagnoses Insulin dependent diabetes mellitus DKA (diabetic ketoacidosis) E11.10 Alcoholism F10.20
[2024-01-15 11:49] LABS: Glucose Point of Care 161 mg/dL (70-110)
[2024-01-15] MEDS: phosphorus 250 mg Tablet PO (11:52)
[2024-01-15] MEDS: potassium chloride ER 20 mEq Tablet 40 MEQ PO (11:52)
[2024-01-15] MEDS: magnesium lactate 84 mg Tablet PO (11:52)
--- NOTE | 2024-01-15 11:57 | PC.NURSE ---
All D/C plans educated to patient, IV DC, to be transported home by daughter after picking up meds from [facility] pharmacy
== END 2024-01-15 12:00 | disposition home or self-care (01) | DRG 639 ==
LOC: ER 14:05 → ICU 15:14
PROVIDERS: Internal Medicine; Admitting Provider Family Medicine; Emergency Provider Family Medicine; Visit Provider Family Medicine
DX: E11.10 Type 2 diabetes mellitus with ketoacidosis without coma (principal); F10.20 Alcohol dependence, uncomplicated; Z79.4 Long term (current) use of insulin
CPT/HCPCS: 36415; 36416; 36600; 71045; 76700; 80048; 80051; 80053; 80061; 80307; 81001; 82009; 82330; 82607; 82746; 82805; 82962; 83605; 83690; 83735; 83880; 84100; 84145; 84443; 85025; 86140; 87040; 93005; 94664; 96365; 96366; 96367; 96372; 96375; 96376; 99285; J1650; J1815; J2270; J2405; J2470; J3411; J7030; J7060; J7799

== ENCOUNTER 2024-03-27 10:59 | Inpatient (IN) | payer SELFPAY ==
[2024-03-27] VITALS (17 sets, daily range): BP systolic 110–160; BP diastolic 56–89; PULSE 83–101; RESP 18–30; TEMP 36.8–37.2; O2SAT 96–100; BMI 34.7
[2024-03-27 11:15] LABS: Glucose Point of Care 280 mg/dL (70-110)
[2024-03-27 12:12] LABS: ABG PCO2 28.9 mmHg (35-45); ABG PH Result 7.34 (7.35-7.45); Alveolar-Arterial Oxygen Gradi 1.5 mmHg (5-10); Arterial Blood Gas Hematocrit 41.4 % (42-52); Base Excess ABG -8.8 mmol/L (-2.0-2.0); Blood Gas Allen Test Pos; Blood Gas Operator Identificat glc; Blood Gas Sample Site Radial, right; Blood Gas Sample Type Arterial; Carboxyhemoglobin 1.2 %THgb (0.4-20.1); HCO3 ABG 15.6 mmol/L (22-26); HGB O2 Sat 97.2 % (95-100); Ionized Calcium Level - ABG 1.2 mmol/L (1.1-1.4); Methemoglobin 0.3 % (0.4-1.5); Oxygen Saturation ABG 98.7; PO2 FiO2 Ratio Arterial Blood 485; Potassium Level - ABG 4.5 mmol/L (3.5-5.0); Total Hemoglobin 13.5 g/dL (14-18)
--- NOTE | 2024-03-27 13:20 | XRR_ITS ---
PROCEDURE INFORMATION: Exam: XR Chest Exam date and time: 03/27/2024 2:08 PM Age: 43 years old Clinical indication: Cough; Additional info: Cough congestion TECHNIQUE: Imaging protocol: Radiologic exam of the chest. Views: 1 view. COMPARISON: CR XR chest 1V portable [id number] 01/13/2024 1:11 PM FINDINGS: Lungs: Unremarkable. No consolidation. Pleural spaces: Unremarkable. No pleural effusion. No pneumothorax. Heart/Mediastinum: Unremarkable. No cardiomegaly. Bones/joints: Unremarkable. XR/XR chest 1V portable [id number] IMPRESSION: No acute findings.
[2024-03-27 13:21] LABS: Basophils % 0.6 %; Hematocrit 37.5 % (37-53); Lymphocytes # 0.8 10^3/uL (0.8-4.8); Lymphocytes % 11.8 %; Mean Corpuscular HGB Conc 32.3 g/dL (30-55); Mean Corpuscular Hemoglobin 32.7 pg (27-33); Mean Corpuscular Volume 101.4 fl (82-101); Mean Platelet Volume 9.5 fL (7.4-10.4); Monocytes # 0.5 10^3/uL (0.2-0.9); Monocytes % 7.7 %; Neutrophils # 5.59 10^3/uL (1.8-7.7); Neutrophils % 79.6 %; Nucleated Red Blood Cells % 0 %; Platelet Count 161 10^3/cmm (157-399); White Blood Count 7.02 10^3/uL (3.29-11.43)
--- NOTE | 2024-03-27 13:21 | ED_ITS ---
HPI - General Adult 2 General: Chief complaint: General Medical Stated complaint: high blood suger / Time Seen by Provider: 03/27/24 12:59 History of Present Illness: Erik Valdez is a 43-year-old man that presents to the emergency department with complaints of hyperglycemia, nausea vomiting. Patient reports at home he has dosing himself with regular insulin and trying to manage his blood sugars for the last 48 hours. At times his glucometer has read high. Patient is a type I diabetic for the last 20 years. He is also a daily drinker. He does not have a primary care and has been getting his prescriptions for insulin prescriptions for insulin through the emergency department here. Patient currently using just NovoLog. He no longer has his long-acting insulin. Medical history includes diabetes type 1, hypertension, daily alcohol use and tobacco use. Patient denies heart disease, hyperlipidemia, pulmonary disease, kidney disease, AMI or CVA history Associated symptoms: Reports nausea and vomiting; Deny chest pain, confusion, dyspnea, headache(s), malaise or palpitations Related Data Previous Rx's Medication Instructions Recorded insulin aspart U-100 100 unit/mL See Rx Instructions .Route 01/15/24 (3 mL) subcutaneous pen (Novolog .COMPLEX #30 mL FlexPen U-100 Insulin aspart) Allergies Allergy/AdvReac Type Severity Reaction Status Date / Time No Known Allergies Allergy Verified 03/27/24 11:13 Review of Systems 2 General: Reports: 10 or more systems reviewed and unremarkable except in HPI and below Const: Reports: change in appetite; Denies: fever(s), chills, change in weight, fatigue or malaise Card: Denies: chest pain, palpitations, irregular heart rhythm, edema, dyspnea on exertion, orthopnea or leg pain with exertion Resp: Denies: dyspnea, productive cough, non-productive cough, wheezing, stridor or chest congestion GI: Reports: nausea and vomiting; Denies: abdominal pain, dysphagia, diarrhea, constipation, bloating, GI cramping or hematochezia : Denies: flank pain, dysuria, urinary frequency, urinary urgency, urinary hesitancy, oliguria or hematuria Musc: Denies: neck pain, back pain, extremity pain, joint pain, joint swelling, joint redness, joint warmth or muscle weakness Neuro: Denies: headache(s), numbness in extremities, weakness in extremities, sensory changes, lack of coordination, difficulty walking, frequent falls, dizziness, confusion, Slurred speech present, difficulty communicating thoughts, seizure-like activity or involuntary movements Endo: Reports: polydipsia; Denies: polyuria or tired all the time Go/Lymph: Denies: easy bruising or easy bleeding PFSH ED 2 PFSH: Medical History Insulin dependent diabetes mellitus Social History Smoking and tobacco/nicotine status: current every day tobacco/nicotine user Alcohol intake: current Substance/Drug Use: never Physical Exam 2 Const: COMMON NORMALS: no acute distress, patient oriented x3 and alert G ENERAL APPEARANCE: cooperative ORIENTATION/CONSCIOUSNESS: Yes awake, Yes oriented to person, Yes oriented to place and Yes oriented to time HENMT: COMMON NORMALS: normocephalic and atraumatic HEAD & SCALP: n ormocephalic and atraumatic FACE & SINUS: normal facial exam MOUTH: Normal oral and palatal mucosa present THROAT: posterior oropharynx normal Eye: COMMON NORMALS: Equal, round and reactive pupils present, EOMs intact bilaterally, conjunctivae normal and no scleral icterus GENERAL EYE: a ppearance normal, both eyes and all related structures ALIGNMENT: Yes alignment normal PERIORBITAL: periorbital findings normal CONJUNCTIVA: Yes conjunctivae normal PUPIL: Yes Equal, round and reactive pupils present Neck/C-Spine: COMMON NORMALS: full ROM GENERAL: Yes normal visual inspection Lymph: LYMPHATIC: no lymphadenopathy noted Chest: COMMONS NORMALS: normal inspection of the chest Breast/axilla inspection: Yes no chest deformity, asymmetry, normal contours, no nodules, masses, tenderness Resp: COMMON NORMALS: normal respiratory effort, No retractions, No use of accessory muscles and clear to auscultation bilaterally EFFORT & INSPECTION: Yes able to speak in complete sentences and Yes symmetric chest movement A USCULTATION: clear to auscultation bilaterally Cardio: COMMON NORMALS: regular rate, regular rhythm and Peripheral pulses 2+ throughout RATE: regular rate RHYTHM: regular rhythm PERIPHERAL PULSES: Peripheral pulses 2+ throughout GI: COMMON NORMALS: Normal to inspection, nondistended, normoactive bowel sounds present, Soft to palpation, non-tender and No hepatosplenomegaly present INSPECTION: Yes normal to inspection AUSCULTATION: Yes normoactive bowel sounds PALPATION: Yes Soft to palpation and Yes No hepatosplenomegaly present RECTAL EXAM: Yes deferred Extremity: COMMON NORMALS: normal to inspection GENERAL: Yes normal exam except as noted Neuro: COMMON NORMALS: patient oriented x3 SENSORIUM/ORIENTATION: Yes alert, Yes oriented to person, Yes oriented to place and Yes oriented to time CRANIAL NERVES: Yes CN normal except as noted Psych: COMMON NORMALS: mental status grossly normal, Normal thought process present, cooperative, activity/motor behavior normal, denies homicidal ideation and denies suicidal ideation THOUGHT PROCESS: Normal thought process present Skin: COMMON NORMALS: no rashes or lesions noted, no wounds and turgor normal GENERAL SKIN EXAM: no rashes or lesions noted and turgor normal Course 2 Vital Signs: Vital signs: Vital Signs Temperature 98.2 F 03/27/24 11:05 Pulse Rate 96 03/27/24 14:33 Respiratory Rate 18 03/27/24 11:05 Blood Pressure 126/71 03/27/24 14:33 Pulse Oximetry 100 03/27/24 14:33 Oxygen Delivery Me thod Room Air 03/27/24 14:33 MDM - General Adult Medical Decision Making Patient was evaluated in the emergency department today for complaints of hyperglycemia, nausea vomiting. Patient denies any abdominal pain at this point. He has been managing his glucose at home with insulin NovoLog. He unfortunately has run out of his long-acting insulin. He denies any baseline illness. However, he did develop nausea and vomiting when his blood sugar started to climb. Upon arrival in the emergency department an IV was started and we gave him a liter bolus of normal saline. His initial glucose was 280. We did obtain an ABG which revealed he was mildly acidotic. Laboratory [place] we obtained serum ketones, CBC CMP and urinalysis. The serum ketones were positive. His CBC did not reveal any significant anemias or leukocytosis. His CMP did reveal hyponatremia but his glucose was 342. He has an elevated BUN and creatinine. I spoke with Dr. Guzman who agreed that patient is in DKA and had him admitted to ICU bed. Insulin drip orders placed. Admit orders placed by Dr. Winston. At the time of admission he has undergone a chest x-ray which reveals no acute cardiopulmonary abnormality. He also underwent a CT abdomen and pelvis without contrast. Results pending. A lipase, CRP and procalcitonin were ordered. Procalcitonin was 0.85. Urinalysis still pending at this time. Lab Data 03/27/24 13:14 03/27/24 13:14 Laboratory Results WBC 7.02 10^3/uL (3.29-11.43) 03/27/24 13:14 RBC 3.70 10^6/uL (3.85-5.65) L 03/27/24 13:14 Hgb 12.10 g/dL (11.27-16.99) 03/27/24 13:14 Hct 37.5 % (37-53) 03/27/24 13:14 MCV 101.4 fl (82-101) H 03/27/24 13:14 MCH 32.7 pg (27-33) 03/27/24 13:14 MCHC 32.3 g/dL (30-55) 03/27/24 13:14 RDW 15.0 % (12.1-15.1) 03/27/24 13:14 Plt Count 161 10^3/cmm (157-399) 03/27/24 13:14 MPV 9.5 fL (7.4-10.4) 03/27/24 13:14 Neut % (Auto) 79.6 % 03/27/24 13:14 Lymph % (Auto) 11.8 % 03/27/24 13:14 [place] % (Auto) 7.7 % 03/27/24 13:14 Eos % (Auto) 0.0 % 03/27/24 13:14 Baso % (Auto) 0.6 % 03/27/24 13:14 Neut # (Auto) 5.59 10^3/uL (1.8-7.7) 03/27/24 13:14 Lymph # (Auto) 0.8 10^3/uL (0.8-4.8) 03/27/24 13:14 [place] # (Auto) 0.5 10^3/uL (0.2-0.9) 03/27/24 13:14 Eos # (Auto) 0.0 10^3/uL (0.0-0.8) 03/27/24 13:14 Baso # (Auto) 0.0 10^3/uL (0.0-0.1) 03/27/24 13:14 Nucleated RBC % (auto) 0 % 03/27/24 13:14 Nucleated RBCs # 0.0 /100WBC 03/27/24 13:14 Specimen Type Arterial 03/27/24 12:00 Sample Site Radial, right 03/27/24 12:00 ABG pH 7.34 (7.35-7.45) L 03/27/24 12:00 ABG pCO2 28.9 mmHg (35-45) L 03/27/24 12:00 ABG pO2 102.0 mmHg (80.0-100.0) H 03/27/24 12:00 ABG PO2/FiO2 Ratio 485 03/27/24 12:00 ABG HCO3 15.6 mmol/L (22-26) L 03/27/24 12:00 ABG O2 Saturation 98.7 03/27/24 12:00 ABG Base Excess -8.8 mmol/L (-2.0-2.0) L 03/27/24 12:00 Thaddeus Test Pos 03/27/24 12:00 A-a O2 Gradient 1.5 mmHg (5-10) L 03/27/24 12:00 Hematocrit 41.4 % (42-52) L 03/27/24 12:00 Hgb O2 Saturation 97.2 % (95-100) 03/27/24 12:00 Carboxyhemoglobin 1.2 %THgb (0.4-20.1) 03/27/24 12:00 Methemoglobin 0.3 % (0.4-1.5) L 03/27/24 12:00 Total Hemoglobin 13.5 g/dL (14-18) L 03/27/24 12:00 Sodium 131.0 mmol/L (131-143) 03/27/24 12:00 Potassium 4.5 mmol/L (3.5-5.0) 03/27/24 12:00 Glucose 298.0 mg/dL (70-115) H 03/27/24 12:00 Ionized Calcium 1.2 mmol/L (1.1-1.4) 03/27/24 12:00 O2 Delivery Device None 03/27/24 12:00 FiO2 21.0 % 03/27/24 12:00 Trash Truck Driver ID glc 03/27/24 12:00 Sodium 125 mmol/L (136-145) L 03/27/24 13:14 Potassium 4.7 mmol/L (3.5-5.1) 03/27/24 13:14 Chloride 85 mmol/L (98-107) L 03/27/24 13:14 Carbon Dioxide 13 mmol/L (22-29) L 03/27/24 13:14 Anion Gap 31.7 (5-19) H 03/27/24 13:14 BUN 21 mg/dL (6-20) H 03/27/24 13:14 Creatinine 2.0 mg/dL (0.7-1.2) H 03/27/24 13:14 GFR Calculation 36.3 mL/min (90-130) L 03/27/24 13:14 Glucose 342 mg/dL (65-115) H 03/27/24 13:14 POC Glucose 280 mg/dL (70-110) H 03/27/24 11:12 Calculated Osmolality 277 mOsm/kg (285-295) L 03/27/24 13:14 Calcium 8.5 mg/dL (8.5-10.5) 03/27/24 13:14 Total Bilirubin 0.6 mg/dL (0.15-1.2) 03/27/24 13:14 AST 62 U/L (0-40) H 03/27/24 13:14 ALT 87 U/L (0-41) H 03/27/24 13:14 Alkaline Phosphatase 185 U/L (40-130) H 03/27/24 13:14 C-Reactive Protein 18.3 mg/L (0.0-4.9) H 03/27/24 13:14 Total Protein 6.4 g/dL (6.6-8.7) L 03/27/24 13:14 Albumin 3.3 g/dL (3.5-5.2) L 03/27/24 13:14 Globulin 3.1 g/dL (1.3-4.6) 03/27/24 13:14 Lipase 17 U/L (13-60) 03/27/24 13:14 Procalcitonin 0.94 ng/mL (0-0.5) H 03/27/24 13:14 Ethyl Alcohol < 10 mg/dL (0-10) 03/27/24 13:14 Serum Ketones Positive (Negative) H 03/27/24 13:14 Coronavirus (PCR) Negative (Negative) 03/27/24 13:38 Influenza A (PCR) Negative (Negative) 03/27/24 13:38 Influenza Type B (PCR) Negative (Negative) 03/27/24 13:38 RSV (PCR) Negative (Negative) 03/27/24 13:38 XR interpretation done by ED provider, pending radiology final review Discharge Plan Discharge Patient Disposition: Admitted As Inpatient Admit Provider: Joshua Vicente Clinical Impression: DKA, type 1, Insulin dependent diabetes mellitus, Acute hyponatremia, Metabolic acidosis, Acute kidney injury Condition: Stable Coding Level of Care Code ED Train Caller for Jamie Null
[2024-03-27] MEDS: sodium chloride 0.9% 1,000 ML 999 ML IV ×2 (13:34→14:27)
[2024-03-27 13:39] LABS: Ketone (Acetest) Serum Positive (Negative)
[2024-03-27 13:47] LABS: Alanine Aminotransferase 87 U/L (0-41); Albumin Level 3.3 g/dL (3.5-5.2); Alcohol Level < 10 mg/dL (0-10); Alkaline Phosphatase 185 U/L (40-130); Aspartate Amino Transferase 62 U/L (0-40); Blood Urea Nitrogen 21 mg/dL (6-20); Calcium 8.5 mg/dL (8.5-10.5); Carbon Dioxide 13 mmol/L (22-29); Chloride 85 mmol/L (98-107); Globulin 3.1 g/dL (1.3-4.6); Glomerular Filtration Rate 36.3 mL/min (90-130); Glucose 342 mg/dL (65-115); Osmolality Calculated 277 mOsm/kg (285-295); Sodium 125 mmol/L (136-145); Total Bilirubin 0.6 mg/dL (0.15-1.2); Total Protein 6.4 g/dL (6.6-8.7)
[2024-03-27 13:48] LABS: Anion Gap 31.7 (5-19); Creatinine Clr Calc Pharmacy 72.0886; Potassium 4.7 mmol/L (3.5-5.1)
--- NOTE | 2024-03-27 14:10 | CTR_ITS ---
PROCEDURE INFORMATION: Exam: CT Abdomen And Pelvis Without Contrast Exam date and time: 03/27/2024 2:35 PM Age: 43 years old Clinical indication: Abdominal pain; Generalized; Additional info: Abd pain, n/v TECHNIQUE: Imaging protocol: Computed tomography of the abdomen and pelvis without contrast. Radiation optimization: All CT scans at this facility use at least one of these dose optimization techniques: automated exposure control; mA and/or kV adjustment per patient size (includes targeted exams where dose is matched to clinical indication); or iterative reconstruction. COMPARISON: US abdomen complete* [id number] 01/14/2024 4:36 PM RADIATION DOSE METRICS: Total DLP (mGy-cm): 1211.53 FINDINGS: Liver: Normal. No mass. Gallbladder and biliary ducts: Cholecystectomy. No ductal dilation. Pancreas: Atrophic pancreas. No ductal dilation. Spleen: Normal. No splenomegaly. Adrenal glands: Normal. No mass. Kidneys and ureters: Horseshoe kidneys. No calcified stones. No hydronephrosis. Stomach and bowel: Unremarkable. No obstruction. No mucosal thickening. Appendix: No evidence of appendicitis. Intraperitoneal space: Unremarkable. No free air. No significant fluid collection. Vasculature: Unremarkable. No abdominal aortic aneurysm. Lymph nodes: Unremarkable. No enlarged lymph nodes. Urinary bladder: Unremarkable as visualized. Reproductive: Unremarkable as visualized. Bones/joints: No acute fracture. Soft tissues: Unremarkable. CT/CT abdomen pelvis con [id number] IMPRESSION: 1. No acute findings. 2. Horseshoe kidneys.
[2024-03-27 14:28] LABS: Covid PCR NEGATIVE (Negative); Influenza A NEGATIVE (Negative); Influenza B NEGATIVE (Negative); Respiratory Syncytial Virus Ce NEGATIVE (Negative)
[2024-03-27 14:36] LABS: Procalcitonin 0.94 ng/mL (0-0.5)
[2024-03-27 14:49] LABS: C Reactive Protein 18.3 mg/L (0.0-4.9); Lipase 17 U/L (13-60)
[2024-03-27 14:49] LABS: Glucose Point of Care 421 mg/dL (70-110)
--- NOTE | 2024-03-27 15:18 | P.HP_ITS ---
Providers/Chief Complaint 2 Admitting Physician: Joshua Vicente MD Chief Complaint: high blood suger / History of Present Illness Erik Valdez is a 43 year old male with a past medical history of type 1 diabetes mellitus, history of alcoholism, history of DKA who presents [facility] due to alcohol consumption, nausea, vomiting, abdominal pain. Currently patient alert oriented x 3, following all commands, he tells me for the last few days, his blood sugars have been elevated, he has been out of his Lantus, reports daily drinking alcohol last drink of alcohol was last night, reports recurrent nausea vomiting abdominal pain no blood or black stools reported, no hemoptysis no hematemesis, no diarrhea, diffuse abdominal pain, no diabetic ulcers, no diabetic wounds, he has reported sinus congestion, no fevers, no chills Review of Systems 2 Const: Reports: fatigue and malaise Card: Denies: chest pain Resp: Reports: dyspnea GI: Reports: abdominal pain, nausea and vomiting : Denies: flank pain Neuro: Denies: headache(s) Medications/Allergies Home Medications Medication Instructions Recorded Confirmed Last Taken Type insulin aspart U-100 100 unit/mL See Rx Instructions .Route 01/15/24 Unknown Rx (3 mL) subcutaneous pen (Novolog .COMPLEX #30 mL FlexPen U-100 Insulin aspart) Allergies Allergy/AdvReac Type Severity Reaction Status Date / Time No Known Allergies Allergy Verified 03/27/24 11:13 PFSH Acute 2 PFSH: Medical History Insulin dependent diabetes mellitus Social History Smoking and tobacco/nicotine status: current every day tobacco/nicotine user Alcohol intake: current Substance/Drug Use: never Vitals/I&O/Wt Last Vital Signs Temp 98.2 F 03/27/24 11:05 Pulse 99 03/27/24 15:10 Resp 18 03/27/24 11:05 BP 146/79 03/27/24 15:10 Pulse Ox 99 03/27/24 15:10 O2 Del Method Room Air 03/27/24 15:10 Weight last 48 hrs Weight 136.078 kg Physical Exam 2 Const: COMMON NORMALS: no acute distress and patient oriented x3 Eye: COMMON NORMALS: Equal, round and reactive pupils present Resp: COMMON NORMALS: normal respiratory effort, No retractions, No use of accessory muscles and clear to auscultation bilaterally AUSCULTATION: clear to auscultation bilaterally Cardio: COMMON NORMALS: no JVD, regular rate, regular rhythm, S1 normal heart sound present and S2 normal heart sound present RATE: regular rate RHYTHM: regular rhythm HEART SOUNDS: S1 normal heart sound present and S2 normal heart sound present GI: OTHER: Abdomen soft, slightly distended, bowel sounds heard, no guarding, no rebound,no rigidity Extremity: COMMON NORMALS: no pedal edema Neuro: COMMON NORMALS: patient oriented x3, CN's II-XII intact bilaterally, moves all extremities and no focal motor deficits Psych: COMMON NORMALS: mental status grossly normal Data 03/27/24 13:14 03/27/24 13:14 A&P Assessment and plan (1) Acute kidney injury: (2) Acute hyponatremia: (3) Metabolic acidosis: (4) DKA (diabetic ketoacidosis): (5) Transaminitis: (6) Alcoholism: (7) Horseshoe kidney: Plan Diabetic ketoacidosis with type 1 diabetes mellitus Plan -Admit to ICU -DKA protocol -BMP every 4 hours -Blood sugars every hour -Maintain potassium greater than 4.5 -Once blood sugar drops below 200 switch to D5 half-normal saline with 40 KCl -Once anion gap closes, less than 14, switch to subcutaneous insulin and Lantus -N.p.o. Full code Lovenox for DVT prophylaxis Dehydration, IV fluids Nausea, vomiting -Nausea control Nausea, vomiting, abdominal pain -CT scan abdomen pelvis pending -Elevated Pro-Yuri, CRP -Start Zosyn for antibiotic coverage Acute kidney injury, on CKD history of horseshoe kidney, IV fluids Transaminitis, HIV, acute hep panel, likely related to alcoholism, gallbladder ultrasound/liver ultrasound Alcoholism, CIWA protocol Attestations 2 Medical Necessity Statement*: Patient requires hospitalization, inpatient, greater than 2 midnight for diabetic ketoacidosis, transaminitis, dehydration, alcoholism Coding Level of Care Code Critical Care >/= 30 minutes Critical care time (in minutes): 35 The high probability of a clinically significant, sudden or life threatening deterioration, as referenced in this documentation, required my full and direct attention, intervention and personal management. The critical care time shown is in addition to time spent performing any reported separately billable procedures and includes the following: [x] Data and vital sign review and interpretation [x ] Patient assessment, examination and intervention [x] Medication orders and management [x] Patient/Family updates as able [x] Care Coordination and Documentation. Diagnoses Acute kidney injury N17.9 Acute hyponatremia E87.1 Metabolic acidosis E87.20 DKA (diabetic ketoacidosis) E11.10 Transaminitis R74.01 Alcoholism F10.20 Horseshoe kidney Q63.1
[2024-03-27] MEDS: INSULIN REGULAR IN 0.9 % NACL 100 UNIT/100 ML BAG 12 UNIT IV (15:20)
--- NOTE | 2024-03-27 15:24 | USR_ITS ---
PROCEDURE INFORMATION: Exam: US Abdomen, Limited; Right Upper Quadrant Exam date and time: 03/27/2024 6:13 PM Age: 43 years old Clinical indication: Screening exam; Other: Galbladder and liver. Doc says for portal vein; Prior surgery; Surgery date: 6+ months; Surgery type: Unsure of dates but patient had gb removed TECHNIQUE: Imaging protocol: Real time ultrasound of the abdomen with image documentation. Limited exam focused on the right upper quadrant. COMPARISON: US abdomen complete* [id number] 01/14/2024 4:36 PM FINDINGS: Liver: Diffusely increased echogenicity of the liver parenchyma. Gallbladder: Cholecystectomy. Biliary ducts: The common bile duct measures 1 cm within expected parameters for post cholecystectomy status. Pancreas: Suboptimally visualized due to bowel gas and soft tissues. Right kidney: Suboptimally visualized right kidney due to overlying location and overlying soft tissues. Portal venous: Patent portal vein with hepatopetal flow. US/US abdomen limited [id number] IMPRESSION: 1. No acute findings. 2. Hepatic steatosis.
[2024-03-27] MEDS: ondansetron 2 mg/ML SDV 2 mL 4 MG IVP ×2 (15:32→20:03)
[2024-03-27 15:34] LABS: Glucose Point of Care 524 mg/dL (70-110)
[2024-03-27] MEDS: pantoprazole 40 mg SDV IVP (15:34)
[2024-03-27] MEDS: sodium chlor 0.9% + KCl 20 mEq 20 MEQ/1,000 ML BAG 125 MEQ IV (15:36)
[2024-03-27 15:47] LABS: INR 0.99 (0.8-1.2); Partial Thromboplastin Time 22.2 SECONDS (23.9-36.7)
[2024-03-27 15:52] LABS: Lactic Sepsis W/Reflex 2.2 mmol/L (0.5-2.2)
[2024-03-27] MEDS: morphine 4 mg/mL SDV 1 mL 2 MG IVP ×2 (15:53→20:03)
[2024-03-27] MEDS: folic acid 1 MG, multivitamin inj 10 ML, thiamine 100 MG in sodium chloride 0.9% 1,000 ML 252.8 MG IV (15:54)
[2024-03-27 15:55] LABS: HIV 1 & 2 Antibody Non-Reactive (Non-Reactiv); HIV 1 & 2 Antigen Non-Reactive (Non-Reactiv)
[2024-03-27] MEDS: enoxaparin 40 mg/0.4 mL Syringe SUBCUT (15:55)
[2024-03-27] MEDS: thiamine 100 mg/mL 2mL SDV IM (15:55)
[2024-03-27 16:06] LABS: Hepatitis A Antibody IgM Non-Reactive (Nonreactive); Hepatitis B Core IgM Non-Reactive (Nonreactive); Hepatitis B Surface Antigen Non-Reactive (Nonreactive); Hepatitis C Virus Antibody Non-Reactive (Nonreactive)
[2024-03-27 16:26] LABS: Estmated Average Glucose 229; Hemoglobin A1C 9.6 % (4.0-6.0)
[2024-03-27] MEDS: piperacillin-tazobactam 3.375 GM in sodium chloride 0.9% (plus) 50 ML IV (16:37)
[2024-03-27 16:52] LABS: Glucose Point of Care 463 mg/dL (70-110)
[2024-03-27] MEDS: lidocaine 2% viscous 15 ML, diphenhydrAMINE oral liq 37.5 MG, aluminum-mag hydrox-simet... MUCOUS MEM (17:04)
[2024-03-27 17:18] LABS: Procalcitonin 0.84 ng/mL (0-0.5); Thyroid Stimulating Hormone 1.49 uIU/mL (0.27-4.20)
[2024-03-27 17:25] LABS: Reflex Lactate Order REFLEX LACTIC ORDERD
[2024-03-27 17:31] LABS: Anion Gap 35.7 (5-19); Blood Urea Nitrogen 23 mg/dL (6-20); Calcium 8.2 mg/dL (8.5-10.5); Carbon Dioxide 10 mmol/L (22-29); Chloride 86 mmol/L (98-107); Cholesterol 242 mg/dL (0-200); Glomerular Filtration Rate 34.3 mL/min (90-130); Glucose 488 mg/dL (65-115); HDL Cholesterol 93 mg/dL (60-100); LDL Cholesterol Calculated 69 mg/dL (50-129); LDL HDL Ratio 0.74 RATIO (0.00-3.22); Osmolality Calculated 289 mOsm/kg (285-295); Potassium 4.7 mmol/L (3.5-5.1); Sodium 127 mmol/L (136-145); Triglycerides 398 mg/dL (0-150)
[2024-03-27 17:32] LABS: Creatinine Clr Calc Pharmacy 65.2937
[2024-03-27 18:04] LABS: Bilirubin Urine Negative (Negative); Blood Urine 1+ (Negative); Glucose Urine UA 3+ (Normal); Ketones Urine 3+ (Negative); Leukocyte Esterase Urine Negative (Negative); Nitrate Urine Negative (Negative); Protein Urine 4+ (Negative); Specific Gravity, Urine 1.021 (1.005-1.030); Urine Appearance Clear (CLEAR); Urine Color Yellow (Yellow); Urobilinogen Urine 0.2 mg/dL (Negative); pH Urine 5.5 (5-7)
[2024-03-27 18:20] LABS: Glucose Point of Care 466 mg/dL (70-110)
[2024-03-27 18:21] LABS: Bacteria Urine 1+ /hpf; Mucus Urine 1+ /hpf; Squamous Epithelial Cell Urine 0-4 /hpf (0-5); UA Manual Slide Review YES; UA Slide Review UA Slide Review Perf; WBC Urine 0-4 /hpf (0-5)
[2024-03-27 18:31] LABS: Glucose Point of Care 313 mg/dL (70-110)
[2024-03-27 19:19] LABS: Anion Gap 32.9 (5-19); Blood Urea Nitrogen 23 mg/dL (6-20); Calcium 7.9 mg/dL (8.5-10.5); Chloride 92 mmol/L (98-107); Creatinine Clr Calc Pharmacy 62.3258; Glomerular Filtration Rate 32.5 mL/min (90-130); Glucose 303 mg/dL (65-115); Osmolality Calculated 285 mOsm/kg (285-295); Potassium 3.9 mmol/L (3.5-5.1); Sodium 130 mmol/L (136-145)
[2024-03-27 19:23] LABS: Carbon Dioxide 9 mmol/L (22-29)
--- NOTE | 2024-03-27 19:49 | PC.NURSE ---
Patient's FSBS dropped from 313 to 200 in one hour. Verified reults with Jaki BACK. Decreased IV insulin to 1 U/hr. Called Dr. Pizano with these results and patient's K+ level. Order rec'd for change in IV fluids and a stat BMP
[2024-03-27 19:53] LABS: Glucose Point of Care 200 mg/dL (70-110)
[2024-03-27] MEDS: nicotine 21 mg Patch 1 PATCH TRANSDERMA (20:02)
[2024-03-27 20:27] LABS: Blood Urea Nitrogen 21 mg/dL (6-20); Calcium 7.7 mg/dL (8.5-10.5); Carbon Dioxide 13 mmol/L (22-29); Chloride 96 mmol/L (98-107); Creatinine Clr Calc Pharmacy 59.6159; Glomerular Filtration Rate 30.9 mL/min (90-130); Glucose 192 mg/dL (65-115); Osmolality Calculated 288 mOsm/kg (285-295); Sodium 135 mmol/L (136-145)
[2024-03-27 20:30] LABS: Glucose Point of Care 146 mg/dL (70-110)
[2024-03-27] MEDS: dextrose 5%-ns + KCl 40 40 MEQ/1,000 ML BAG 100 MEQ IV (21:26)
[2024-03-27 21:42] LABS: Glucose Point of Care 124 mg/dL (70-110)
[2024-03-27 22:29] LABS: Glucose Point of Care 131 mg/dL (70-110)
[2024-03-27 23:34] LABS: Glucose Point of Care 138 mg/dL (70-110)
[2024-03-28] VITALS (27 sets, daily range): BP systolic 143–168; BP diastolic 75–106; PULSE 72–86; RESP 10–22; TEMP 36.4–36.9; O2SAT 95–99
[2024-03-28 00:27] LABS: Glucose Point of Care 132 mg/dL (70-110)
[2024-03-28 00:44] LABS: Anion Gap 22.2 (5-19); Blood Urea Nitrogen 19 mg/dL (6-20); Calcium 7.4 mg/dL (8.5-10.5); Carbon Dioxide 17 mmol/L (22-29); Chloride 97 mmol/L (98-107); Creatinine Clr Calc Pharmacy 62.3258; Glomerular Filtration Rate 32.5 mL/min (90-130); Glucose 137 mg/dL (65-115); Osmolality Calculated 278 mOsm/kg (285-295); Potassium 4.2 mmol/L (3.5-5.1); Sodium 132 mmol/L (136-145)
[2024-03-28] MEDS: piperacillin-tazobactam 3.375 GM in sodium chloride 0.9% (plus) 50 ML IV ×3 (01:31→18:07)
[2024-03-28 01:51] LABS: Glucose Point of Care 172 mg/dL (70-110)
[2024-03-28] MEDS: morphine 4 mg/mL SDV 1 mL 2 MG IVP ×5 (01:58→22:10)
[2024-03-28 03:39] LABS: Glucose Point of Care 181 mg/dL (70-110)
[2024-03-28 03:51] LABS: Basophils % 0.6 %; Eosinophils % 0.4 %; Hematocrit 30.3 % (37-53); Lymphocytes % 18.2 %; Mean Corpuscular Hemoglobin 32.8 pg (27-33); Mean Corpuscular Volume 102.4 fl (82-101); Mean Platelet Volume 10.1 fL (7.4-10.4); Monocytes # 0.5 10^3/uL (0.2-0.9); Monocytes % 9.8 %; Neutrophils # 3.68 10^3/uL (1.8-7.7); Neutrophils % 70.6 %; Nucleated Red Blood Cells % 0 %; Platelet Count 130 10^3/cmm (157-399); Red Blood Count 2.96 10^6/uL (3.85-5.65); Red Cell Distribution Width 15.4 % (12.1-15.1); White Blood Count 5.21 10^3/uL (3.29-11.43)
[2024-03-28 04:20] LABS: Alanine Aminotransferase 65 U/L (0-41); Alkaline Phosphatase 135 U/L (40-130); Anion Gap 20.2 (5-19); Aspartate Amino Transferase 35 U/L (0-40); Blood Urea Nitrogen 21 mg/dL (6-20); Calcium 7.7 mg/dL (8.5-10.5); Carbon Dioxide 18 mmol/L (22-29); Chloride 101 mmol/L (98-107); Creatinine Clr Calc Pharmacy 65.2937; Globulin 2.5 g/dL (1.3-4.6); Glomerular Filtration Rate 34.3 mL/min (90-130); Glucose 172 mg/dL (65-115); Magnesium 1.9 mg/dL (1.7-2.3); Osmolality Calculated 287 mOsm/kg (285-295); Phosphorus 1.7 mg/dL (2.5-4.5); Potassium 4.2 mmol/L (3.5-5.1); Sodium 135 mmol/L (136-145); Total Bilirubin 0.3 mg/dL (0.15-1.2); Total Protein 5.5 g/dL (6.6-8.7)
[2024-03-28 04:47] LABS: Anion Gap 23.3 (5-19); Blood Urea Nitrogen 19 mg/dL (6-20); Calcium 7.2 mg/dL (8.5-10.5); Carbon Dioxide 17 mmol/L (22-29); Chloride 99 mmol/L (98-107); Creatinine Clr Calc Pharmacy 65.2937; Glomerular Filtration Rate 34.3 mL/min (90-130); Glucose 173 mg/dL (65-115); Osmolality Calculated 286 mOsm/kg (285-295); Potassium 4.3 mmol/L (3.5-5.1); Sodium 135 mmol/L (136-145)
[2024-03-28 04:49] LABS: Glucose Point of Care 216 mg/dL (70-110)
[2024-03-28 05:48] LABS: Glucose Point of Care 236 mg/dL (70-110)
[2024-03-28 06:42] LABS: Glucose Point of Care 214 mg/dL (70-110)
[2024-03-28] MEDS: dextrose 5%-ns + KCl 40 40 MEQ/1,000 ML BAG 100 MEQ IV ×2 (07:57→17:58)
[2024-03-28 08:02] LABS: Glucose Point of Care 258 mg/dL (70-110)
[2024-03-28] MEDS: thiamine 100 mg Tablet PO (08:12)
[2024-03-28] MEDS: folic acid 1 mg Tablet PO (08:12)
[2024-03-28 08:13] LABS: Anion Gap 19.2 (5-19); Blood Urea Nitrogen 19 mg/dL (6-20); Calcium 7.8 mg/dL (8.5-10.5); Carbon Dioxide 19 mmol/L (22-29); Chloride 100 mmol/L (98-107); Creatinine Clr Calc Pharmacy 69.2877; Glomerular Filtration Rate 36.3 mL/min (90-130); Glucose 252 mg/dL (65-115); Osmolality Calculated 289 mOsm/kg (285-295); Potassium 4.2 mmol/L (3.5-5.1); Sodium 134 mmol/L (136-145)
[2024-03-28] MEDS: nicotine 21 mg Patch 1 PATCH TRANSDERMA (08:13)
[2024-03-28] MEDS: multivitamin therapeutic Tablet 1 TAB PO (08:13)
[2024-03-28 08:52] LABS: Glucose Point of Care 262 mg/dL (70-110)
[2024-03-28 10:01] LABS: Glucose Point of Care 230 mg/dL (70-110)
[2024-03-28] MEDS: potassium chloride ER 20 mEq Tablet PO (10:12)
[2024-03-28] MEDS: INSULIN REGULAR IN 0.9 % NACL 100 UNIT/100 ML BAG IV (11:03)
[2024-03-28 11:19] LABS: Glucose Point of Care 221 mg/dL (70-110)
[2024-03-28 12:06] LABS: Glucose Point of Care 201 mg/dL (70-110)
[2024-03-28 12:19] LABS: Anion Gap 18.1 (5-19); Blood Urea Nitrogen 14 mg/dL (6-20); Calcium 7.5 mg/dL (8.5-10.5); Carbon Dioxide 20 mmol/L (22-29); Chloride 99 mmol/L (98-107); Creatinine Clr Calc Pharmacy 72.9344; Glomerular Filtration Rate 38.5 mL/min (90-130); Glucose 221 mg/dL (65-115); Osmolality Calculated 283 mOsm/kg (285-295); Potassium 4.1 mmol/L (3.5-5.1); Sodium 133 mmol/L (136-145)
[2024-03-28 13:10] LABS: Glucose Point of Care 183 mg/dL (70-110)
--- NOTE | 2024-03-28 13:41 | P.PN_ITS ---
Subjective 2 Subjective: Patient was seen this morning, he is alert oriented x 3, following all commands no nausea, no vomiting, no fevers, no chills, anion gap 18, Vitals/I&O/Wt Last Vital Signs Temp 98.2 F 03/28/24 12:00 Pulse 73 03/28/24 12:00 Resp 18 03/28/24 13:09 BP 160/92 03/28/24 12:00 Pulse Ox 99 03/28/24 12:00 O2 Del Method Room Air 03/28/24 12:00 03/27/24 03/28/24 03/28/24 22:59 06:59 14:59 Intake Total 486.776 / 486.776 418.051 / 130.361 9933.90 / 1215.90 Output Total 1090 / 1090 340 / 1430 500 / 500 Balance -603.224 / -603.224 78.051 / -525.173 715.90 / 715.90 Weight last 48 hrs Weight 125.464 kg Weight 122.7 kg Weight 136.078 kg Physical Exam 2 Const: COMMON NORMALS: no acute distress and patient oriented x3 Resp: COMMON NORMALS: normal respiratory effort, No retractions, No use of accessory muscles and clear to auscultation bilaterally AUSCULTATION: clear to auscultation bilaterally Cardio: COMMON NORMALS: regular rate, regular rhythm, S1 normal heart sound present and S2 normal heart sound present RATE: regular rate RHYTHM: r egular rhythm HEART SOUNDS: S1 normal heart sound present and S2 normal heart sound present GI: COMMON NORMALS: Normal to inspection, nondistended, normoactive bowel sounds present and non-tender Extremity: COMMON NORMALS: no pedal edema Neuro: COMMON NORMALS: patient oriented x3 Psych: COMMON NORMALS: mental status grossly normal Data 03/28/24 02:49 03/28/24 11:56 Micro: Microbiology 03/27/24 Unknown Urine Culture - Preliminary Urine,Voided 03/27/24 08:51 Blood Culture - Preliminary Blood SPECIMEN COLLECTED 03/27/24 15:35 Blood Culture - Preliminary Blood SPECIMEN COLLECTED A&P Assessment and plan (1) Acute kidney injury: (2) Acute hyponatremia: (3) Metabolic acidosis: (4) DKA (diabetic ketoacidosis): (5) Transaminitis: (6) Alcoholism: (7) Horseshoe kidney: Plan Diabetic ketoacidosis with type 1 diabetes mellitus Plan -Admit to ICU -DKA protocol -BMP every 4 hours -Blood sugars every hour -Maintain potassium greater than 4.5 -Once blood sugar drops below 200 switch to D5 half-normal saline with 40 KCl -Once anion gap closes, less than 14, switch to subcutaneous insulin and Lantus -N.p.o. Full code Lovenox for DVT prophylaxis Dehydration, IV fluids Nausea, vomiting -Nausea control Nausea, vomiting, abdominal pain -CT scan abdomen no acute findings -Continue Zosyn for antibiotic coverage Acute kidney injury, on CKD history of horseshoe kidney, IV fluids Transaminitis, likely related to alcoholism Alcoholism, CIWA protocol Plan for today anion gap still 18, continue insulin drip Attestations 2 Medical Necessity Statement*: Patient requires hospitalization for diabetic ketoacidosis on insulin drip, Coding Level of Care Code Critical Care >/= 30 minutes Critical care time (in minutes): 35 The high probability of a clinically significant, sudden or life threatening deterioration, as referenced in this documentation, required my full and direct attention, intervention and personal management. The critical care time shown is in addition to time spent performing any reported separately billable procedures and includes the following: [x] Data and vital sign review and interpretation [x ] Patient assessment, examination and intervention [x] Medication orders and management [x] Patient/Family updates as able [x] Care Coordination and Documentation. Diagnoses Acute kidney injury N17.9 Acute hyponatremia E87.1 Metabolic acidosis E87.20 DKA (diabetic ketoacidosis) E11.10 Transaminitis R74.01 Alcoholism F10.20 Horseshoe kidney Q63.1
[2024-03-28 14:09] LABS: Glucose Point of Care 167 mg/dL (70-110)
[2024-03-28 15:09] LABS: Glucose Point of Care 187 mg/dL (70-110)
[2024-03-28 16:12] LABS: Anion Gap 18.6 (5-19); Blood Urea Nitrogen 12 mg/dL (6-20); Calcium 7.4 mg/dL (8.5-10.5); Carbon Dioxide 18 mmol/L (22-29); Chloride 99 mmol/L (98-107); Creatinine Clr Calc Pharmacy 76.9864; Glucose 225 mg/dL (65-115); Osmolality Calculated 279 mOsm/kg (285-295); Potassium 4.6 mmol/L (3.5-5.1); Sodium 131 mmol/L (136-145)
[2024-03-28] MEDS: lidocaine 2% viscous 15 ML, diphenhydrAMINE oral liq 37.5 MG, aluminum-mag hydrox-simet... MUCOUS MEM (16:22)
[2024-03-28] MEDS: enoxaparin 40 mg/0.4 mL Syringe SUBCUT (16:31)
[2024-03-28] MEDS: pantoprazole 40 mg SDV IVP (16:32)
[2024-03-28 16:44] LABS: Glucose Point of Care 224 mg/dL (70-110)
[2024-03-28 17:30] LABS: Glucose Point of Care 215 mg/dL (70-110)
[2024-03-28] MEDS: sodium chloride 0.9% 500 ML 999 ML IV (17:52)
[2024-03-28 18:25] LABS: Glucose Point of Care 229 mg/dL (70-110)
[2024-03-28 19:29] LABS: Glucose Point of Care 246 mg/dL (70-110)
[2024-03-28 20:11] LABS: Anion Gap 15.5 (5-19); Blood Urea Nitrogen 12 mg/dL (6-20); Calcium 7.3 mg/dL (8.5-10.5); Carbon Dioxide 21 mmol/L (22-29); Chloride 99 mmol/L (98-107); Creatinine Clr Calc Pharmacy 86.6097; Glucose 244 mg/dL (65-115); Osmolality Calculated 280 mOsm/kg (285-295); Potassium 4.5 mmol/L (3.5-5.1); Sodium 131 mmol/L (136-145)
[2024-03-28 20:32] LABS: Glucose Point of Care 256 mg/dL (70-110)
[2024-03-28 21:36] LABS: Glucose Point of Care 237 mg/dL (70-110)
[2024-03-28] MEDS: LORazepam 2 mg Tablet PO (22:13)
[2024-03-28 22:19] LABS: Glucose Point of Care 238 mg/dL (70-110)
[2024-03-29] VITALS (10 sets, daily range): BP systolic 123–167; BP diastolic 68–104; PULSE 76–89; RESP 14–18; TEMP 36.3–36.4; O2SAT 94–98
[2024-03-29 00:17] LABS: Glucose Point of Care 216 mg/dL (70-110)
[2024-03-29 00:48] LABS: Anion Gap 15.3 (5-19); Blood Urea Nitrogen 11 mg/dL (6-20); Calcium 7.1 mg/dL (8.5-10.5); Carbon Dioxide 20 mmol/L (22-29); Chloride 100 mmol/L (98-107); Creatinine Clr Calc Pharmacy 86.6097; Glucose 232 mg/dL (65-115); Osmolality Calculated 279 mOsm/kg (285-295); Potassium 4.3 mmol/L (3.5-5.1); Sodium 131 mmol/L (136-145)
[2024-03-29] MEDS: piperacillin-tazobactam 3.375 GM in sodium chloride 0.9% (plus) 50 ML IV (01:37)
[2024-03-29] MEDS: insulin glargine 100 units/1 mL 40 UNIT SUBCUT (01:40)
[2024-03-29 06:07] LABS: Basophils % 0.5 %; Eosinophils # 0.1 10^3/uL (0.0-0.8); Eosinophils % 1.6 %; Hematocrit 32.9 % (37-53); Lymphocytes # 0.6 10^3/uL (0.8-4.8); Lymphocytes % 16.4 %; Mean Corpuscular HGB Conc 32.5 g/dL (30-55); Mean Corpuscular Hemoglobin 32.7 pg (27-33); Mean Corpuscular Volume 100.6 fl (82-101); Mean Platelet Volume 10.1 fL (7.4-10.4); Monocytes # 0.3 10^3/uL (0.2-0.9); Monocytes % 7.1 %; Neutrophils % 73.9 %; Nucleated Red Blood Cells % 0 %; Platelet Count 118 10^3/cmm (157-399); Red Blood Count 3.27 10^6/uL (3.85-5.65); Red Cell Distribution Width 15.4 % (12.1-15.1); White Blood Count 3.66 10^3/uL (3.29-11.43)
[2024-03-29 06:28] LABS: Alanine Aminotransferase 99 U/L (0-41); Albumin Level 2.7 g/dL (3.5-5.2); Alkaline Phosphatase 165 U/L (40-130); Anion Gap 17.7 (5-19); Aspartate Amino Transferase 220 U/L (0-40); Blood Urea Nitrogen 10 mg/dL (6-20); Calcium 7.4 mg/dL (8.5-10.5); Carbon Dioxide 18 mmol/L (22-29); Chloride 99 mmol/L (98-107); Creatinine Clr Calc Pharmacy 87.1331; Globulin 2.6 g/dL (1.3-4.6); Glucose 307 mg/dL (65-115); Magnesium 1.8 mg/dL (1.7-2.3); Osmolality Calculated 281 mOsm/kg (285-295); Phosphorus 1.5 mg/dL (2.5-4.5); Potassium 4.7 mmol/L (3.5-5.1); Sodium 130 mmol/L (136-145); Total Bilirubin 0.4 mg/dL (0.15-1.2); Total Protein 5.3 g/dL (6.6-8.7)
[2024-03-29 07:54] LABS: Glucose Point of Care 266 mg/dL (70-110)
[2024-03-29 08:21] LABS: Anion Gap 15.8 (5-19); Blood Urea Nitrogen 10 mg/dL (6-20); Calcium 7.4 mg/dL (8.5-10.5); Carbon Dioxide 21 mmol/L (22-29); Chloride 98 mmol/L (98-107); Glomerular Filtration Rate 50.6 mL/min (90-130); Glucose 297 mg/dL (65-115); Osmolality Calculated 280 mOsm/kg (285-295); Potassium 4.8 mmol/L (3.5-5.1); Sodium 130 mmol/L (136-145)
[2024-03-29] MEDS: insulin lispro 100 unit/1 mL SUBCUT ×2 (09:05→12:49)
[2024-03-29] MEDS: nicotine 21 mg Patch 1 PATCH TRANSDERMA (09:05)
[2024-03-29] MEDS: folic acid 1 mg Tablet PO (09:06)
[2024-03-29] MEDS: multivitamin therapeutic Tablet 1 TAB PO (09:07)
[2024-03-29] MEDS: thiamine 100 mg Tablet PO (09:07)
[2024-03-29] MEDS: amlodipine 5 mg Tablet PO (09:08)
--- NOTE | 2024-03-29 11:14 | P.DS_ITS ---
Discharge Providers Date of Admission: 03/27/24 14:13 Date of Discharge: March 29, 2024 Attending Provider at Admission: Joshua Vicente MD Attending Provider at Discharge: Joshua Vicente MD Diagnoses at Discharge Discharge Diagnosis (1) Acute kidney injury: Status: Acute (2) Acute hyponatremia: Status: Acute (3) Metabolic acidosis: Status: Acute (4) DKA (diabetic ketoacidosis): Status: Resolved (5) Transaminitis: Status: Acute (6) Alcoholism: Status: Resolved (7) Horseshoe kidney: Status: Acute Reason for Visit Reason for Visit: high blood suger / Hospital Course Hospital Course Erik Valdez is a 43 year old male with a past medical history of type 1 diabetes mellitus, history of alcoholism, history of DKA who presents [facility] due to alcohol consumption, nausea, vomiting, abdominal pain. Currently patient alert oriented x 3, following all commands, he tells me for the last few days, his blood sugars have been elevated, he has been out of his Lantus, reports daily drinking alcohol last drink of alcohol was last night, reports recurrent nausea vomiting abdominal pain no blood or black stools reported, no hemoptysis no hematemesis, no diarrhea, diffuse abdominal pain, no diabetic ulcers, no diabetic wounds, he has reported sinus congestion, no fevers, no chills Patient was admitted to [facility] for diabetic ketoacidosis with type 1 diabetes mellitus monitored as inpatient, the ICU received insulin drip, DKA protocol, overall clinically improved anion gap closed, transition to subcu insulin, will be discharged on Lantus 40 units every afternoon, with a high dose sliding scale For patient's acute kidney injury with history of horseshoe kidney, discussed with patient to drink plenty of electrolyte balanced fluids, follow-up with nephrology in [place] For patient's history of alcoholism, transaminitis, status post cholecystectomy, CT scan showed no intra or extrahepatic biliary dilatation, patient was advised to abstain from alcohol consumption, follow-up with primary care provider in the next 48 hours to recheck liver function. Referral sent to GI in [place] Physical Exam Const: COMMON NORMALS: no acute distress and patient oriented x3 Resp: COMMON NORMALS: normal respiratory effort, No retractions, No use of accessory muscles and clear to auscultation bilaterally AUSCULTATION: clear to auscultation bilaterally Cardio: COMMON NORMALS: regular rate, regular rhythm, S1 normal heart sound present and S2 normal heart sound present RATE: regular rate RHYTHM: re gular rhythm HEART SOUNDS: S1 normal heart sound present and S2 normal heart sound present GI: COMMON NORMALS: Normal to inspection, nondistended, normoactive bowel sounds present and non-tender Extremity: COMMON NORMALS: no pedal edema Neuro: COMMON NORMALS: patient oriented x3 Psych: COMMON NORMALS: mental status grossly normal Discharge Data Studies Completed and Pending Completed Studies During Hospitalization Category Date Time Status CT abdomen pelvis wo con [id number] Stat Cat Scan 03/27/24 14:10 Completed XR chest 1V portable [id number] Stat Exams 03/27/24 13:20 Completed US abdomen limited [id number] Routine Ultrasound 03/27/24 15:24 Completed Pending at discharge Category Date Time Status Blood Culture Routine Lab 03/27/24 08:51 Results Complete Blood Count w/Auto AM LABS Lab 03/30/24 04:00 Ordered Comprehensive Metabolic Panel AM LABS Lab 03/30/24 04:00 Ordered Magnesium AM LABS Lab 03/30/24 04:00 Ordered Phosphorus AM LABS Lab 03/30/24 04:00 Ordered Urine Culture Stat Lab 03/27/24 Results Radiology Impressions Chest X-Ray 03/27/24 13:20 IMPRESSION: No acute findings. Abdomen/Pelvis CT 03/27/24 14:10 IMPRESSION: 1. No acute findings. 2. Horseshoe kidneys. Abdomen Ultrasound 03/27/24 15:24 IMPRESSION: 1. No acute findings. 2. Hepatic steatosis. Laboratory Results WBC 3.66 10^3/uL (3.29-11.43) 03/29/24 05:51 RBC 3.27 10^6/uL (3.85-5.65) L 03/29/24 05:51 Hgb 10.70 g/dL (11.27-16.99) L 03/29/24 05:51 Hct 32.9 % (37-53) L 03/29/24 05:51 MCV 100.6 fl (82-101) 03/29/24 05:51 MCH 32.7 pg (27-33) 03/29/24 05:51 MCHC 32.5 g/dL (30-55) 03/29/24 05:51 RDW 15.4 % (12.1-15.1) H 03/29/24 05:51 Plt Count 118 10^3/cmm (157-399) L 03/29/24 05:51 MPV 10.1 fL (7.4-10.4) 03/29/24 05:51 Neut % (Auto) 73.9 % 03/29/24 05:51 Lymph % (Auto) 16.4 % 03/29/24 05:51 Worth % (Auto) 7.1 % 03/29/24 05:51 Eos % (Auto) 1.6 % 03/29/24 05:51 Baso % (Auto) 0.5 % 03/29/24 05:51 Neut # (Auto) 2.70 10^3/uL (1.8-7.7) 03/29/24 05:51 Lymph # (Auto) 0.6 10^3/uL (0.8-4.8) L 03/29/24 05:51 Worth # (Auto) 0.3 10^3/uL (0.2-0.9) 03/29/24 05:51 Eos # (Auto) 0.1 10^3/uL (0.0-0.8) 03/29/24 05:51 Baso # (Auto) 0.0 10^3/uL (0.0-0.1) 03/29/24 05:51 Nucleated RBC % (auto) 0 % 03/29/24 05:51 Nucleated RBCs # 0.0 /100WBC 03/29/24 05:51 PT 13.80 SECONDS (12.1-14.9) 03/27/24 13:10 INR 0.99 (0.8-1.2) 03/27/24 13:10 APTT 22.2 SECONDS (23.9-36.7) L 03/27/24 13:10 Specimen Type Arterial 03/27/24 12:00 Sample Site Radial, right 03/27/24 12:00 ABG pH 7.34 (7.35-7.45) L 03/27/24 12:00 ABG pCO2 28.9 mmHg (35-45) L 03/27/24 12:00 ABG pO2 102.0 mmHg (80.0-100.0) H 03/27/24 12:00 ABG PO2/FiO2 Ratio 485 02/01/25 12:00 ABG HCO3 15.6 mmol/L (22-26) L 03/27/24 12:00 ABG O2 Saturation 98.7 03/27/24 12:00 ABG Base Excess -8.8 mmol/L (-2.0-2.0) L 03/27/24 12:00 Thaddeus Test Pos 03/27/24 12:00 A-a O2 Gradient 1.5 mmHg (5-10) L 03/27/24 12:00 Hematocrit 41.4 % (42-52) L 03/27/24 12:00 Hgb O2 Saturation 97.2 % (95-100) 03/27/24 12:00 Carboxyhemoglobin 1.2 %THgb (0.4-20.1) 03/27/24 12:00 Methemoglobin 0.3 % (0.4-1.5) L 03/27/24 12:00 Total Hemoglobin 13.5 g/dL (14-18) L 03/27/24 12:00 Sodium 131.0 mmol/L (131-143) 03/27/24 12:00 Potassium 4.5 mmol/L (3.5-5.0) 03/27/24 12:00 Glucose 298.0 mg/dL (70-115) H 03/27/24 12:00 Ionized Calcium 1.2 mmol/L (1.1-1.4) 03/27/24 12:00 O2 Delivery Device None 03/27/24 12:00 FiO2 21.0 % 03/27/24 12:00 [employer]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 [id number] 03/27/24 12:00 Sodium 130 mmol/L (136-145) L 03/29/24 07:56 Potassium 4.8 mmol/L (3.5-5.1) 03/29/24 07:56 Chloride 98 mmol/L (98-107) 03/29/24 07:56 Carbon Dioxide 21 mmol/L (22-29) L 03/29/24 07:56 Anion Gap 15.8 (5-19) 03/29/24 07:56 BUN 10 mg/dL (6-20) 03/29/24 07:56 Creatinine 1.5 mg/dL (0.7-1.2) H 03/29/24 07:56 GFR Calculation 50.6 mL/min (90-130) L 03/29/24 07:56 Glucose 297 mg/dL (65-115) H 03/29/24 07:56 POC Glucose 266 mg/dL (70-110) H 03/29/24 07:52 Estimat Average Glucose 229 03/27/24 13:10 Hemoglobin A1c 9.6 % (4.0-6.0) H 03/27/24 13:10 Calculated Osmolality 280 mOsm/kg (285-295) L 03/29/24 07:56 Lactic Acid 2.2 mmol/L (0.5-2.2) 03/27/24 13:10 Lactic Acid (Sepsis) 3.0 mmol/L (0.5-2.2) H 03/27/24 08:51 Calcium 7.4 mg/dL (8.5-10.5) L 03/29/24 07:56 Phosphorus 1.5 mg/dL (2.5-4.5) L 03/29/24 05:51 Magnesium 1.8 mg/dL (1.7-2.3) 03/29/24 05:51 Total Bilirubin 0.4 mg/dL (0.15-1.2) 03/29/24 05:51 AST 220 U/L (0-40) H 03/29/24 05:51 ALT 99 U/L (0-41) H 03/29/24 05:51 Alkaline Phosphatase 165 U/L (40-130) H 03/29/24 05:51 C-Reactive Protein 18.3 mg/L (0.0-4.9) H 03/27/24 13:14 Total Protein 5.3 g/dL (6.6-8.7) L 03/29/24 05:51 Albumin 2.7 g/dL (3.5-5.2) L 03/29/24 05:51 Globulin 2.6 g/dL (1.3-4.6) 03/29/24 05:51 Triglycerides 398 mg/dL (0-150) H 03/27/24 15:35 Cholesterol 242 mg/dL (0-200) H 03/27/24 15:35 LDL Cholesterol, Calc 69 mg/dL (50-129) 03/27/24 15:35 HDL Cholesterol 93 mg/dL (60-100) 03/27/24 15:35 LDL/HDL Ratio 0.74 RATIO (0.00-3.22) 03/27/24 15:35 Cholesterol/HDL Ratio 2.60 mg/dL (1.0-5.00) 03/27/24 15:35 Lipase 17 U/L (13-60) 03/27/24 13:14 Procalcitonin 0.84 ng/mL (0-0.5) H 03/27/24 15:35 TSH 1.49 uIU/mL (0.27-4.20) 03/27/24 15:35 Urine Color Yellow (Yellow) 03/27/24 Unknown Urine Appearance Clear (CLEAR) 03/27/24 Unknown Urine pH 5.5 (5-7) 03/27/24 Unknown Ur Specific [place] 1.021 (1.005-1.030) 03/27/24 Unknown Urine Protein 4+ (Negative) A 03/27/24 Unknown Urine Glucose (UA) 3+ (Normal) H 03/27/24 Unknown Urine Ketones 3+ (Negative) H 03/27/24 Unknown Urine Blood 1+ (Negative) A 03/27/24 Unknown Urine Nitrate Negative (Negative) 03/27/24 Unknown Urine Bilirubin Negative (Negative) 03/27/24 Unknown Urine Urobilinogen 0.2 mg/dL (Negative) 03/27/24 Unknown Ur Leukocyte Esterase Negative (Negative) 03/27/24 Unknown Urine RBC 3-5 /hpf (0-2) 03/27/24 Unknown Urine WBC 0-4 /hpf (0-5) H 03/27/24 Unknown Ur Squamous Epith Cells 0-4 /hpf (0-5) H 03/27/24 Unknown Amorphous Sediment Not Reportable 03/27/24 Unknown Urine Bacteria 1+ /hpf (NONE) H 03/27/24 Unknown Hyaline Casts 10-15 /lpf H 03/27/24 Unknown Urine Mucus 1+ /hpf 03/27/24 Unknown Ethyl Alcohol < 10 mg/dL (0-10) 03/27/24 13:14 Serum Ketones Positive (Negative) H 03/27/24 13:14 Coronavirus (PCR) Negative (Negative) 03/27/24 13:38 Hepatitis A IgM Ab Non-reactive (Nonreactive) 03/27/24 13:10 Hep Bs Antigen Non-reactive (Nonreactive) 03/27/24 13:10 Hep B Core IgM Ab Non-reactive (Nonreactive) 03/27/24 13:10 Hepatitis C Antibody Non-reactive (Nonreactive) 03/27/24 13:10 HIV 1&2 Ab & HIV 1 Ag Non-reactive (Non-Reactiv) 03/27/24 13:10 HIV 1&2 Antibody Non-reactive (Non-Reactiv) 03/27/24 13:10 Influenza A (PCR) Negative (Negative) 03/27/24 13:38 Influenza Type B (PCR) Negative (Negative) 03/27/24 13:38 RSV (PCR) Negative (Negative) 03/27/24 13:38 Vitals Last Vital Signs Temp 97.5 F L 03/29/24 08:00 Pulse 78 03/29/24 08:00 Resp 18 03/29/24 08:00 BP 167/104 03/29/24 08:00 Pulse Ox 95 03/29/24 08:00 O2 Del Method Room Air 03/29/24 08:00 Discharge Plan Discharge Patient Disposition: Home Condition: Stable Prescriptions: New multivitamin with folic acid [Thera] 400 mcg Tablet 1 tab PO DAILY 30 Days Qty: 30 0RF thiamine mononitrate (vit B1) [Vitamin B-1 (mononitrate)] 100 mg Tablet 100 mg PO DAILY 30 Days Qty: 30 0RF amlodipine 5 mg Tablet 5 mg PO DAILY 30 Days Qty: 30 0RF Continued insulin aspart U-100 [Novolog FlexPen U-100 Insulin] 100 unit/mL (3 mL) insulin pen See Rx Instructions .ROUTE .COMPLEX MDD 60 Qty: 30 0RF Rx Instructions: Inject, subcut, 3 times daily, after meals, based on sliding scale provided Changed insulin glargine [Lantus Solostar U-100 Insulin] 100 unit/mL (3 mL) insulin pen 40 unit SUBCUT QPM Qty: 15 0RF Discharge Orders: Discharge Order (Routine); Ordered 03/29/24 Ordered By: Joshua Vicente Referrals: Alicja Araiza MD [Referring] - 1 month (horshoe kidney, ckd) Dov Haney MD [Referring] - 1 month (transamnitis, alocholism) Discharge Diet: Cardiac Discharge Activity: Resume usual activity Patient Instructions: Thiamine (By mouth), Multivitamins, Adult Formula (By mouth) (Daily Multiple Vitamins,..., Amlodipine (By mouth), Acute Kidney Injury (DC), Heart Healthy Diet (DC), Metabolic Acidosis (GEN), Transaminitis (GEN), Opioid Safety Activity Restrictions/Additional Instructions: - For your horseshoe kidney, chronic kidney disease please follow-up with nephrology in [place] ? Please have your primary care provider recheck your liver function in 48 hours ? Please abstain from alcohol consumption -Please inject Lantus 40 units subcut in the evening -Please monitor your blood sugars closely -Monitor your blood sugars 3 times daily as after meals -Please record your blood sugars, and a blood sugar log -For your NovoLog -Please inject blood sugar after meals based on sliding scale provided -Do not inject insulin if you do not eat as hypoglycemia kills -This is a NovoLog sliding scale -Insulin sliding, high-dose sliding scale ?fingerstick? Insulin ?141-180?6 units/sq 181-220?8 units/sq ?221-260?10 units/sq ?261-300 12 units/sq ?301-350?14 units/sq ?351-400 16 units/sq ?401-450?18 units/sq >450? 20 units/sq -If your blood sugar is greater than 500 go to the emergency room -If your blood sugar is less than 60 or at anytime you feel lightheaded or dizzy or diaphoretic or have chest palpitations check your blood sugar, and eat a hard candy or drink orange juice and go immediately to the emergency room -Remember hypoglycemia kills, so if his blood sugar is less than 60 we have to increase it by taking in a sugary meal such as a hard candy or orange juice and go to the emergency room -If you have any questions please call us where here to help Discharge Attestations Time Spent in Discharge Care*: greater than 30 min Quality Metrics Clinical Quality Measures [ No reported AMI, CVA or VTE this stay] Coding Level of Care Code 34203 Total time (in minutes) for Discharge: 45 Diagnoses Acute kidney injury N17.9 Acute hyponatremia E87.1 Metabolic acidosis E87.20 DKA (diabetic ketoacidosis) E11.10 Transaminitis R74.01 Alcoholism F10.20 Horseshoe kidney Q63.1
[2024-03-29 11:45] LABS: Glucose Point of Care 197 mg/dL (70-110)
== END 2024-03-29 13:35 | disposition home or self-care (01) | DRG 638 ==
LOC: ER 14:47 → ICU 14:51
PROVIDERS: Emergency Medicine; Internal Medicine; Admitting Provider Family Medicine; Emergency Provider Nurse Practitioner; Visit Provider Family Medicine
DX: E10.10 Type 1 diabetes mellitus with ketoacidosis without coma (principal); E87.1 Hypo-osmolality and hyponatremia; N17.9 Acute kidney failure, unspecified; F10.20 Alcohol dependence, uncomplicated; Q63.1 Lobulated, fused and horseshoe kidney; Z79.4 Long term (current) use of insulin; E86.0 Dehydration
CPT/HCPCS: 36415; 36416; 36600; 71045; 74176; 76705; 80048; 80051; 80053; 80061; 80074; 80307; 81001; 82009; 82330; 82805; 82962; 83036; 83605; 83690; 83735; 84100; 84145; 84443; 85025; 85610; 85730; 86140; 87040; 87086; 87637; 87806; 94664; 96365; 96366; 96367; 96372; 96374; 96376; 99285; J1650; J1815; J2270; J2405; J2470; J2543; J3411; J3480; J3490; J7030; J7040

== ENCOUNTER → 2024-11-04 13:44 | Outpatient (BNVA) | payer BC, SELFPAY | PROVIDERS: PCP Family Medicine; Visit Provider Family Medicine | DX: E10.9 Type 1 diabetes mellitus without complications (principal); M14.679 Charcot's joint, unspecified ankle and foot; L98.9 Disorder of the skin and subcutaneous tissue, unspecified | CPT/HCPCS: 80053; 80061; 83036; 84443; 85025 ==

== ENCOUNTER → 2024-12-16 12:15 | Outpatient (BNVA) | payer BC, MEDICAID, SELFPAY | PROVIDERS: PCP Family Medicine; Visit Provider Family Medicine | DX: E10.9 Type 1 diabetes mellitus without complications (principal) | CPT/HCPCS: 80048 ==

== ENCOUNTER 2024-12-24 15:14 | Inpatient (IN) | payer BC, SELFPAY ==
[2024-12-24] VITALS (11 sets, daily range): BP systolic 109–139; BP diastolic 60–81; PULSE 102–111; RESP 18–26; TEMP 36.6; O2SAT 97–100; BMI 31.1
--- NOTE | 2024-12-24 15:18 | W.ED.GENADLT ---
HPI - General Adult General: Chief complaint: ER Hold Stated complaint: Elevated Glucose Time Seen by Provider: 12/24/24 15:15 History of Present Illness: 44-year-old male presents emergency room complaining of nausea vomiting, elevated blood sugars. He has not been able to keep anything down since about 8:00 this morning. Denies any hematochezia. No fever sweats chills or cough. No chest pain he has not had any recent change in his medications. Patient states on arrival that he is in DKA has had this many times before. He states he has been taking his insulin regularly has not run out or changed any doses recently. No fever sweats or chills has a bit of a nonproductive cough. No diarrhea but has been vomiting frequently Associated symptoms: Reports nausea and vomiting; Deny chest pain, dyspnea or rash Related Data Previous Rx's ?Medication ?Instructions ?Recorded blood-glucose transmitter (Dexcom #1 ea 11/04/24 G6 Transmitter device) blood-glucose,managed services sales consultant,cont #1 ea 11/04/24 (Dexcom G6 Coil Connector Repairer) insulin glargine 100 unit/mL (3 40 unit (0.4 mL) SUBCUT QPM #15 mL 11/04/24 mL) subcutaneous pen (Lantus Solostar U-100 Insulin) losartan 25 mg tablet 25 mg PO DAILY #30 tabs 11/04/24 blood-glucose sensor (Dexcom G6 #3 ea 11/16/24 Sensor device) insulin lispro 100 unit/mL 10 unit (0.1 mL) SUBCUT TID #15 mL 11/16/24 subcutaneous pen (Humalog KwikPen (U-100) Insulin) Custom [employer]ING[employer] boot #1 ea 11/29/24 diabetic shoes with 3 sets of #1 ea 11/29/24 inserts atorvastatin 10 mg tablet (Lipitor) 10 mg PO DAILY #90 tabs 11/30/24 Allergies Allergy/AdvReac Type Severity Reaction Status Date / Time No Known Allergies Allergy Verified 11/24/24 15:35 Review of Systems Const: Denies: fever(s) or chills Card: Denies: chest pain Resp: Denies: dyspnea GI: Reports: nausea and vomiting; Denies: abdominal pain, hematemesis, coffee ground emesis, diarrhea, hematochezia or melena : Denies: dysuria, urinary frequency or urinary urgency Musc: Denies: neck pain or back pain Skin/Breast: Denies: rash PFSH ED PFSH: Medical History Chronic kidney disease (CKD) Insulin dependent diabetes mellitus Surgical History S/P cholecystectomy Social History Smoking and tobacco/nicotine status: never used tobacco/nicotine Alcohol intake: current Substance/Drug Use: never Additional social history: Patient wants full code as discussed on 12/24/2024 with Shiraz Gunn MD Household members: family 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 Physical Exam Const: GENERAL APPEARANCE: cooperative ORIENTATION/CONSCIOUSNESS: Yes awake, Yes oriented to person, Yes oriented to place and Yes oriented to time HENMT: COMMON NORMALS: normocephalic, atraumatic and hearing grossly normal bilaterally HEAD & SCALP: normocephalic and atraumatic Resp: COMMON NORMALS: clear to auscultation bilaterally EFFORT & INSPECTION: Yes tachypneic AUSCULTATION: clear to auscultation bilaterally Cardio: COMMON NORMALS: regular rhythm and No murmurs present (Cardio) RATE: tachycardic RHYTHM: regular rhythm GI: COMMON NORMALS: Soft to palpation and No hepatosplenomegaly present AUSCULTATION: Yes normoactive bowel sounds PALPATION: Yes Soft to palpation, No Tenderness to palpation present (GI), No Guarding due to palpation present (GI) and Yes No hepatosplenomegaly present Extremity: COMMON NORMALS: normal to inspection, capillary refill normal, no clubbing, cyanosis or edema, no calf tenderness and no pedal edema Neuro: SENSORIUM/ORIENTATION: Yes oriented to person, Yes oriented to place and Yes oriented to time Skin: COMMON NORMALS: no rashes or lesions noted GENERAL SKIN EXAM: no rashes or lesions noted Course Vital Signs: Vital signs: Vital Signs Temperature 97.8 F 12/24/24 21:00 Pulse Rate 104 H 12/25/24 06:00 Respiratory Rate 26 H 12/25/24 06:00 Blood Pressure 128/62 12/25/24 06:00 Pulse Oximetry 98 12/25/24 06:00 Oxygen Delivery Me thod Room Air 12/24/24 22:05 MDM - General Adult Medical Decision Making Patient initially seen and evaluated patient appears to be in DKA based on history and exam. He is having some tachypnea. Evaluate for secondary infections may have triggered this ketones ABG CBC CMP UA chest x-ray ordered. No significant findings on lab work suggesting secondary infection. Patient does have positive ketones he is severely acidotic hyperglycemic. He has some leukocytosis but I suspect this is due to his persistent nausea and vomiting and DKA. 3+ protein and glucose in the urine trace ketones serum ketones are positive. The blood alcohol level is 43. Patient admits to regular alcohol use. He has been given several liters of IV fluids and initial bolus of insulin IV as well as started on IV drip. His bicarb is significantly decreased. We started him on a bicarb drip as well. His potassium is only 5.6 this morning close monitoring especially given the degree of correction for fluid losses he will require. Finally patient has acute on chronic kidney injury. His creatinine is at 3.8 typical looks to be around 2.1-2.3. Repeat ABG shows improvement from a pH of 6.8 9 improving to 7.19 on a venous blood gas on the repeat draw. Patient transferred to ICU on insulin drip as well as bicarb drip. Have discussed Dr. Gunn orders written Medical Records I reviewed the patient's medical records. Lab Data I reviewed the patient's lab results. 12/24/24 15:25 12/25/24 05:38 Radiology Impressions Chest X-Ray 12/24/24 16:45 IMPRESSION: Mild opacity at the left lung base which may represent atelectasis. Laboratory Results WBC 16.17 10^3/uL (3.29-11.43) H 12/24/24 15: RBC 3.57 10^6/uL (3.85-5.65) L 12/24/24 15:25 Hgb 11.30 g/dL (11.27-16.99) 12/24/24 15: Hct 36.8 % (37-53) L 12/24/24 15: MCV 103.1 fl (82-101) H 12/24/24 15: MCH 31.7 pg (27-33) 12/24/24 15: MCHC 30.7 g/dL (30-55) 12/24/24 15: RDW 12.7 % (12.1-15.1) 12/24/24 15: Plt Count 183 10^3/cmm (157-399) 12/24/24 15: MPV 9.8 fL (7.4-10.4) 12/24/24 15: Neut % (Auto) 82.8 % 12/24/24 15: Lymph % (Auto) 9.2 % 12/24/24 15:25 [place] % (Auto) 6.9 % 12/24/24 15: Eos % (Auto) 0.0 % 12/24/24 15: Baso % (Auto) 0.4 % 12/24/24 15: Neut # (Auto) 13.37 10^3/uL (1.8-7.7) H 12/24/24 15: Lymph # (Auto) 1.5 10^3/uL (0.8-4.8) 12/24/24 15:25 [place] # (Auto) 1.1 10^3/uL (0.2-0.9) H 12/24/24 15:25 Eos # (Auto) 0.0 10^3/uL (0.0-0.8) 12/24/24 15:25 Baso # (Auto) 0.1 10^3/uL (0.0-0.1) 12/24/24 15: Nucleated RBC % (auto) 0 % 12/24/24 15: Nucleated RBCs # 0.0 /100WBC 12/24/24 15:25 Specimen Type Arterial 12/24/24 16:15 Sample Site Radial, right 12/24/24 16:15 ABG pH 6.89 (7.35-7.45) L* 12/24/24 16:15 ABG pCO2 15.1 mmHg (35-45) L* 12/24/24 16:15 ABG pO2 127.0 mmHg (80.0-100.0) H 12/24/24 16:15 ABG PO2/FiO2 Ratio 604 12/24/24 16:15 ABG HCO3 2.9 mmol/L (22-26) L 12/24/24 16:15 ABG O2 Saturation 97.5 12/24/24 16:15 ABG Base Excess -28.6 mmol/L (-2.0-2.0) L 12/24/24 16:15 Thaddeus Test Pos 12/24/24 16:15 A-a O2 Gradient Not Reportable 12/24/24 16:15 Hematocrit 35.9 % (42-52) L 12/24/24 16:15 Hgb O2 Saturation 95.6 % (95-100) 12/24/24 16:15 Carboxyhemoglobin 0.6 %THgb (0.4-20.1) 12/24/24 16:15 Methemoglobin 1.4 % (0.4-1.5) 12/24/24 16:15 Total Hemoglobin 11.7 g/dL (14-18) L 12/24/24 16:15 Sodium 141.0 mmol/L (131-143) 12/24/24 16:15 Potassium 4.8 mmol/L (3.5-5.0) 12/24/24 16:15 Glucose 430.0 mg/dL (70-115) H 12/24/24 16:15 Ionized Calcium 1.2 mmol/L (1.1-1.4) 12/24/24 16:15 O2 Delivery Device Room air 12/24/24 16:15 FiO2 21.0 % 12/24/24 16:15 Heel Painter ID Cak 12/24/24 16:15 Sodium 137 mmol/L (136-145) 12/24/24 15:25 Potassium 5.6 mmol/L (3.5-5.1) H 12/24/24 15:25 Chloride 89 mmol/L (98-107) L 12/24/24 15:25 Carbon Dioxide 6 mmol/L (22-29) L* 12/24/24 15:25 Anion Gap 47.6 (5-19) H 12/24/24 15:25 BUN 31 mg/dL (6-20) H 12/24/24 15:25 Creatinine 3.8 mg/dL (0.7-1.2) H 12/24/24 15:25 GFR Calculation 17.2 mL/min (90-130) L 12/24/24 15:25 Glucose 462 mg/dL (65-115) H 12/24/24 15:25 POC Glucose 377 mg/dL (70-110) H 12/24/24 17:19 Calculated Osmolality 311 mOsm/kg (285-295) H 12/24/24 15:25 Calcium 8.4 mg/dL (8.5-10.5) L 12/24/24 15:25 Total Bilirubin 0.4 mg/dL (0.15-1.2) 12/24/24 15:25 AST 28 U/L (0-40) 12/24/24 15:25 ALT 24 U/L (0-41) 12/24/24 15:25 Alkaline Phosphatase 183 U/L (40-130) H 12/24/24 15:25 Total Protein 6.1 g/dL (6.6-8.7) L 12/24/24 15:25 Albumin 3.7 g/dL (3.5-5.2) 12/24/24 15:25 Globulin 2.4 g/dL (1.3-4.6) 12/24/24 15:25 Ethyl Alcohol 43 mg/dL (0-10) H 12/24/24 15:25 Serum Ketones Positive (Negative) H 12/24/24 15:25 All radiology interpretation(s) finalized by discharge ED provider radiology interpretation(s): Chest x-ray poor inspiration no acute infiltrates no significant cardiomegaly Critical Care Time Critical Care Time: Critical Care Time: Yes Total Critical Care Time: 40 Attestation: The high probability of a clinically significant, sudden or life threatening deterioration of the patient's cardiovascular respiratory renal endocrine system(s) required my full and direct attention, intervention and personal management. The critical care time is as shown. This time is in addition to time spent performing any reported procedures but includes the following: [x] Data and vital sign review and interpretation [x] Patient assessment, examination and intervention [x] Documentation [x] Medication orders and management Discharge Plan Discharge Patient Disposition: Admitted As Inpatient Admit Provider: Shiraz Gunn Clinical Impression: Diabetic ketoacidosis associated with type 1 diabetes mellitus, Insulin dependent diabetes mellitus, Diabetes mellitus type 1, Chronic kidney disease (CKD), Leukocytosis, Acute kidney injury superimposed on chronic kidney disease Condition: Stable Coding Level of Care Code ED Quarry Supervisor Open Pit for Jamie Null
--- OUTSIDE RECORDS SUMMARY | 2024-12-24 15:23 | XMS_ITS | Encounter Summary ---
Author Organization [facility], [facility] Address [address] [place] [address] Phone Care Team Providers Care Manager Tax Name Role Phone Unavailable Primary Care Provider Unavailabl e Encounter Details Date Type Department Care Team (Late st Contact Info) Description 03/31/2024 Orders Only [facility] [address] [place] [address] Acute nontraumatic kidney injury, not otherwise specified (HCC); Acute hyponatremia; Horseshoe kidney Social History Tobacco Use Types Packs/Day Years Used Date Smoking Tobacco: Never Assessed Sex and Gender Information Value Date Recorded Sex Assigned at Not on file Legal Sex Male 10:08 AM EST Gender Identity Not on file Sexual Orientation Not on file documented as of this encounter Plan of Treatment Not on file documented as of this encounter Visit Diagnoses Diagnosis Acute nontraumatic kidney injury, not otherwise specified (HCC) Acute hyponatremia Horseshoe kidney documented in this encounter
--- OUTSIDE RECORDS SUMMARY | 2024-12-24 15:23 | XMS_ITS | Clinical Summary ---
Author Organization [facility] Address [address] [place] [address] Care Team Providers Care Sales And Service Agent Name Role Phone Unavailable Primary Care Provider Unavailabl e Social History Tobacco Use Types Packs/Day Years Used Date Smoking Tobacco: Never Assessed Sex and Gender Information Value Date Recorded Sex Assigned at Not on file Legal Sex Male 10:08 AM EST Gender Identity Not on file Sexual Orientation Not on file Plan of Treatment Health Maintenance Due Date Last Done Comments Hepatitis B Vaccine (1 of 3 - 19+ 3-dose series) 1997 Influenza Vaccine (#1) 2024 Pneumococcal Vaccine: Peds ( 0 to 5 Years) and At-Risk Patients (6 to 49 Years) Aged Out No longer eligible b ased on patient's age to complete this topic
[2024-12-24 15:35] LABS: Hematocrit 36.8 % (37-53); Hemoglobin 11.30 g/dL (11.27-16.99); Mean Corpuscular HGB Conc 30.7 g/dL (30-55); Mean Corpuscular Hemoglobin 31.7 pg (27-33); Mean Corpuscular Volume 103.1 fl (82-101); Nucleated Red Blood Cells % 0 %; Platelet Count 183 10^3/cmm (157-399); Red Blood Count 3.57 10^6/uL (3.85-5.65); White Blood Count 16.17 10^3/uL (3.29-11.43)
[2024-12-24 15:41] LABS: Ketone (Acetest) Serum Positive (Negative)
[2024-12-24 15:50] LABS: Alanine Aminotransferase 24 U/L (0-41); Albumin Level 3.7 g/dL (3.5-5.2); Alkaline Phosphatase 183 U/L (40-130); Anion Gap 47.6 (5-19); Aspartate Amino Transferase 28 U/L (0-40); Blood Urea Nitrogen 31 mg/dL (6-20); Calcium 8.4 mg/dL (8.5-10.5); Chloride 89 mmol/L (98-107); Creatinine Clr Calc Pharmacy 35.6719; Globulin 2.4 g/dL (1.3-4.6); Glucose 462 mg/dL (65-115); Osmolality Calculated 311 mOsm/kg (285-295); Potassium 5.6 mmol/L (3.5-5.1); Sodium 137 mmol/L (136-145); Total Protein 6.1 g/dL (6.6-8.7)
[2024-12-24 15:56] LABS: Carbon Dioxide 6 mmol/L (22-29)
[2024-12-24] MEDS: insulin regular-human 100 units/1 mL 10 UNIT IVP (16:00)
[2024-12-24 16:27] LABS: ABG PH Result 6.89 (7.35-7.45); Arterial Blood Gas Hematocrit 35.9 % (42-52); Blood Gas Allen Test Pos; Blood Gas Operator Identificat CAK; Blood Gas Sample Site Radial, right; Blood Gas Sample Type Arterial; Carboxyhemoglobin 0.6 %THgb (0.4-20.1); Glucose Level-ABG 430.0 mg/dL (70-115); HCO3 ABG 2.9 mmol/L (22-26); Ionized Calcium Level - ABG 1.2 mmol/L (1.1-1.4); Methemoglobin 1.4 % (0.4-1.5); Oxygen Saturation ABG 97.5; PO2 ABG 127.0 mmHg (80.0-100.0); PO2 FiO2 Ratio Arterial Blood 604; Potassium Level - ABG 4.8 mmol/L (3.5-5.0); Sodium Level - ABG 141.0 mmol/L (131-143)
[2024-12-24 16:28] LABS: ABG PCO2 15.1 mmHg (35-45)
--- NOTE | 2024-12-24 16:45 | XRR_ITS ---
PROCEDURE INFORMATION: Exam: XR Chest Exam date and time: 12/24/2024 5:00 PM Age: 44 years old Clinical indication: Shortness of breath; Additional info: Dka TECHNIQUE: Imaging protocol: Radiologic exam of the chest. Views: 1 view. COMPARISON: CR XR chest 1V portable [id number] 03/27/2024 2:08 PM FINDINGS: Lungs: Mild opacity at the left lung base. Pleural spaces: Unremarkable. No pleural effusion. No pneumothorax. Heart/Mediastinum: Unremarkable. No cardiomegaly. Bones/joints: Unremarkable. XR/XR chest 1V portable [id number] IMPRESSION: Mild opacity at the left lung base which may represent atelectasis.
[2024-12-24 17:11] LABS: Alcohol Level 43 mg/dL (0-10)
[2024-12-24] MEDS: INSULIN REGULAR IN 0.9 % NACL 100 UNIT/100 ML BAG 12 UNIT IV ×2 (17:25→23:38)
--- NOTE | 2024-12-24 18:21 | PM.HP ---
Providers/Chief Complaint Admitting Physician: Shiraz Gunn MD Primary Care Provider: Delfino Cruz MD Chief Complaint: Elevated Glucose History of Present Illness Erik Valdez is a 44 year old male with history of IDDM, alcoholism, CKD and past DKA came in with elevated blood sugars nausea vomiting diarrhea and found to have DKA. He was last admitted for DKA in March 2024. The patient reports that 3 days ago his Dexcom was reading 50. He did not check this with his home glucometer. He last took his Lantus yesterday AM. This morning he could barely walk so did not take it. He felt worse and came to the ER. He has had chills but no fever he has been nauseated vomiting and diarrhea today. States his breathing is fast but not as fast as past episodes of DKA. He does not have specific chest pain or abdominal pain but he feels achy all over. Patient lives with his uncle and grandpa. He is caring for his grandfather who is missing a leg. Patient states he does not otherwise work but not on disability. Review of Systems Narrative: General Positive for chills his highest weight was 315 pounds when he got DKA early 20s and now weighs about 270. Patient states he was drinking Mountain Dew all day back then but stopped that Cardiovascular no chest pain or palpitations he does have leg edema Respiratory negative for cough or wheezing GI positive for nausea vomiting diarrhea no blood no constipation no dysuria hematuria Neuro no seizures or stroke symptoms Heme no history of blood clots in legs or lungs Malignancy history negative Psych history negative Medications/Allergies Home Medications ?Medication ?Instructions ?Recorded ?Confirmed ?Last Taken ?Type blood-glucose transmitter (Dexcom #1 ea 11/04/24 12/24/24 Unknown Rx G6 Transmitter device) blood-glucose,warehouse receiver,cont #1 ea 11/04/24 12/24/24 Unknown Rx (Dexcom G6 Children'S Service Supervisor) insulin glargine 100 unit/mL (3 40 unit (0.4 mL) SUBCUT QPM #15 mL 11/04/24 12/24/24 12/23/24 Rx mL) subcutaneous pen (Lantus Solostar U-100 Insulin) losartan 25 mg tablet 25 mg PO DAILY #30 tabs 11/04/24 12/24/24 12/23/24 Rx blood-glucose sensor (Dexcom G6 #3 ea 11/16/24 12/24/24 Unknown Rx Sensor device) insulin lispro 100 unit/mL 10 unit (0.1 mL) SUBCUT TID #15 mL 11/16/24 12/24/24 12/23/24 Rx subcutaneous pen (Humalog KwikPen (U-100) Insulin) Custom [place] boot #1 ea 11/29/24 12/24/24 Unknown Rx diabetic shoes with 3 sets of #1 ea 11/29/24 12/24/24 Unknown Rx inserts atorvastatin 10 mg tablet (Lipitor) 10 mg PO DAILY #90 tabs 11/30/24 12/24/24 12/23/24 Rx Allergies Allergy/AdvReac Type Severity Reaction Status Date / Time No Known Allergies Allergy Verified 11/24/24 15:35 PFSH Acute PFSH: Medical History (Updated 12/24/24 @ 18:29 by Shiraz Gunn MD) Chronic kidney disease (CKD) Insulin dependent diabetes mellitus Surgical History (Updated 12/24/24 @ 18:27 by Shiraz Gunn MD) S/P cholecystectomy Social History (Updated 12/24/24 @ 18:26 by Shiraz Gunn MD) Smoking and tobacco/nicotine status: never used tobacco/nicotine Alcohol intake: current Substance/Drug Use: never Additional social history: Patient wants full code as discussed on 12/24/2024 with Shiraz Gunn MD Household members: family 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 Vitals/I&O/Wt Last Vital Signs Temp 97.8 F 12/24/24 15:15 Pulse 107 H 12/24/24 17:51 Resp 22 H 12/24/24 17:51 BP 112/67 12/24/24 17:51 Pulse Ox 100 12/24/24 17:51 O2 Del Method Room Air 12/24/24 17:51 12/24/24 12/24/24 12/24/24 06:59 14:59 22:59 Intake Total 1999 Balance 1999 Weight last 48 hrs Weight 122.47 kg Physical Exam Narrative: General well-developed well-nourished tall obese male 6 foot 6 and height 270 pounds CV regular rate and rhythm Lungs clear to auscultation bilaterally Abdomen positive bowel tones soft nontender Calves no tenderness cords pretrip edema Neck no mass or tenderness Mentation alert and oriented x 3 Data 10/31/25 15:25 12/24/24 15:25 A&P Assessment and plan 1. Diabetic ketoacidosis associated with type 1 diabetes mellitus: Patient pH is 6.89 potassium 5.6. Anticipate rapid drop in potassium so we will start replacement. Additionally his blood sugar was only 550 and he is already on D5 containing fluid at 250 cc an hour with insulin drip at 12. Blood sugar running 350. Will obtain BMP every 4 hours and try to drop the blood sugar by 50-100 points an hour maintained at 150 until anion gap closes and bicarb over 23 2. Diabetes mellitus type 1: Counseled patient that anytime he is sick he can take 10 units for half his usual 34 unit insulin but needs to have some long-acting insulin given every 24 hour. And he suck it hard sugared candy to keep his blood sugars under control. He should do this even if he is coming to the hospital just to decrease the DKA 3. Chronic kidney disease (CKD): Patient seemed unaware that he had chronic kidney disease but his kidney function runs at creatinine of 1.5-2.6 at baseline.. He is on losartan needs additional counseling regarding this and especially to avoid NSAIDs completely 4. Leukocytosis: Unclear etiology may be DKA but in the past DKA has never had elevated white count since 2023. check blood cultures PDMP PDMP Reviewed: Not Reviewed Attestations Medical Necessity Statement*: Patient mid to the ICU and will require 2 midnights in the hospital more I anticipate 3 Coding Level of Care Code Critical Care >/= 30 minutes Diagnoses Diabetic ketoacidosis associated with type 1 diabetes mellitus E10.10 Diabetes mellitus type 1 E10.9 Chronic kidney disease (CKD) N18.9 Leukocytosis D72.829 Time Spent (min) 60
[2024-12-24 19:06] LABS: Base Excess VBG -18.0 mmol/L (-3.0-3.0); Blood Gas Operator Identificat MONRO; Blood Gas Sample Site Not specified; Blood Gas Sample Type Venous; HCO3 VBG 8.4 mmol/L (24-28); PCO2 VBG 22.1 mmHg (41-51); PO2 VBG 50.1 mmHg (25-40); Venous Blood Gas Hematocrit 36.3 % (42-52); pH VBG 7.19 (7.32-7.42)
[2024-12-24 19:26] LABS: Anion Gap 39.8 (5-19); Blood Urea Nitrogen 38 mg/dL (6-20); Calcium 8.2 mg/dL (8.5-10.5); Chloride 95 mmol/L (98-107); Creatinine Clr Calc Pharmacy 33.0618; Glucose 304 mg/dL (65-115); Magnesium 2.3 mg/dL (1.7-2.3); Osmolality Calculated 306 mOsm/kg (285-295); Potassium 4.8 mmol/L (3.5-5.1); Sodium 138 mmol/L (136-145)
[2024-12-24 19:28] LABS: Carbon Dioxide 8 mmol/L (22-29)
[2024-12-24] MEDS: dextrose 5%-ns + KCl 40 40 MEQ/1,000 ML BAG 250 MEQ IV (19:44)
--- OUTSIDE RECORDS SUMMARY | 2024-12-24 20:15 | XMS_ITS | Clinical Summary ---
Author Organization [facility] Facility Address [address] [place] [address] Care Team Providers Care Senior Buyer Planner Name Role Phone Unavailable Primary Care Provider [...]
--- OUTSIDE RECORDS SUMMARY | 2024-12-24 20:15 | XMS_ITS | Encounter Summary ---
Author Organization [facility], [facility] Address [address] [place] [address] Phone Care Team Providers Care Block Engraver Name Role Phone Unavailable Primary Care Provider Unavailabl e Encounter Details Date Type Department Care Team (Late st Contact Info) Description 03/31/2024 Orders Only [facility] [address] [place] [address] Acute nontraumatic kidney injury, not [...]
[2024-12-24 20:37] LABS: Glucose Urine UA 3+ (Normal); Nitrate Urine Negative (Negative); Specific Gravity, Urine 1.019 (1.005-1.030)
[2024-12-24 20:39] LABS: Add Urine Microscopic? YES; Universal Test for UA Present (0)
[2024-12-24 21:16] LABS: Respiratory Syncytial Virus Ce NEGATIVE (Negative); SARS-CoV-2 PCR NEGATIVE (Negative)
[2024-12-24 21:47] LABS: Anion Gap 30.5 (5-19); Blood Urea Nitrogen 40 mg/dL (6-20); Calcium 8.3 mg/dL (8.5-10.5); Carbon Dioxide 16 mmol/L (22-29); Chloride 97 mmol/L (98-107); Creatinine Clr Calc Pharmacy 33.0618; Glucose 228 mg/dL (65-115); Osmolality Calculated 305 mOsm/kg (285-295); Potassium 4.5 mmol/L (3.5-5.1); Sodium 139 mmol/L (136-145)
[2024-12-24] MEDS: pantoprazole 40 mg SDV IVP (22:27)
[2024-12-24] MEDS: LORazepam 1 MG/0.5 ML injection 2 MG IVP (22:27)
[2024-12-24] MEDS: LORazepam 2 mg/mL INJ 1 mL (22:27)
[2024-12-25] VITALS (24 sets, daily range): BP systolic 114–181; BP diastolic 53–105; PULSE 90–104; RESP 13–29; TEMP 36.6–37.2; O2SAT 90–100
[2024-12-25] MEDS: dextrose 5%-ns + KCl 40 40 MEQ/1,000 ML BAG 200 MEQ IV ×2 (01:37→06:41)
[2024-12-25 01:38] LABS: Anion Gap 14.3 (5-19); Blood Urea Nitrogen 39 mg/dL (6-20); Calcium 7.8 mg/dL (8.5-10.5); Carbon Dioxide 21 mmol/L (22-29); Chloride 105 mmol/L (98-107); Creatinine Clr Calc Pharmacy 36.7108; Glucose 251 mg/dL (65-115); Osmolality Calculated 300 mOsm/kg (285-295); Potassium 4.3 mmol/L (3.5-5.1); Sodium 136 mmol/L (136-145)
[2024-12-25] MEDS: pantoprazole 40 mg SDV IVP (05:22)
[2024-12-25 06:12] LABS: Anion Gap 15.2 (5-19); Blood Urea Nitrogen 40 mg/dL (6-20); Calcium 7.9 mg/dL (8.5-10.5); Carbon Dioxide 21 mmol/L (22-29); Chloride 107 mmol/L (98-107); Glucose 138 mg/dL (65-115); Osmolality Calculated 300 mOsm/kg (285-295); Potassium 4.2 mmol/L (3.5-5.1); Sodium 139 mmol/L (136-145)
[2024-12-25 06:15] LABS: Creatinine Clr Calc Pharmacy 36.7108
--- NOTE | 2024-12-25 09:29 | P.PN_ITS ---
Subjective 2 Subjective: 44-year-old male states he is an alcoholic and was drinking 1/5 a day for years stopped for 3 months then drank 1/5 a day the last 4 days prior to admission. He think this is why he was sick. States in the past he has had withdrawals and required 5 days in the hospital. Patient states he is interested in stopping alcohol. Patient states he feels better this morning no longer nauseated Vitals/I&O/Wt Last Vital Signs Temp 97.8 F 12/24/24 21:00 Pulse 94 12/25/24 08:00 Resp 23 H 12/25/24 08:00 BP 121/59 12/25/24 08:00 Pulse Ox 96 12/25/24 08:00 O2 Del Method Room Air 12/25/24 08:00 12/24/24 12/25/24 12/25/24 22:59 06:59 14:59 Intake Total 2751.550 / 2751.550 2555.266 / 5306.816 2.800 / 2.800 Balance 2751.550 / 2751.550 2555.266 / 5306.816 2.800 / 2.800 Weight last 48 hrs Weight 122.924 kg Weight 123 kg Weight 122.47 kg Physical Exam 2 Narrative: General well-developed well-nourished tall obese male 6 foot 6 and height 270 pounds CV regular rate and rhythm Lungs clear to auscultation bilaterally Abdomen positive bowel tones soft nontender Calves no tenderness cords pretibial Mentation alert and oriented x 3 right antecubital IV which has insulin drip at 1 unit hour has fallen out Data 12/24/24 15:25 12/25/24 05:38 Micro: Microbiology 12/24/24 19:02 Blood Culture - Preliminary Blood SPECIMEN COLLECTED 12/24/24 19:01 Blood Culture - Preliminary Blood SPECIMEN COLLECTED A&P Assessment and plan 1. Diabetic ketoacidosis associated with type 1 diabetes mellitus: Anion gap is 15 serum bicarb 21 start Lantus 30 units now and nightly start 1800-calorie ADA diet 2. Diabetes mellitus type 1: Counseled patient that anytime he is sick he can take 10 units for half his usual 34 unit insulin but needs to have some long-acting insulin given every 24 hour. And he suck it hard sugared candy to keep his blood sugars under control. He should do this even if he is coming to the hospital just to decrease the DKA Patient was counseled regarding his diabetes and kidney disease 3. Chronic kidney disease (CKD): Creatinine running 3.8 which represents a significant worsening. Patient is counseled regarding high risk of progressing to dialysis. He is on losartan needs additional counseling regarding this and especially to avoid NSAIDs completely 4. Leukocytosis: Unclear etiology may be DKA but in the past DKA has never had elevated white count since 2023. check blood cultures Patient reports cough. Viral panel was negative check CBC and start cough medicine 5. Alcoholism: start ciwa and thiamine. monitor overnight. pt want to stop drinking PDMP PDMP Reviewed: Not Reviewed Attestations 2 Medical Necessity Statement*: The high probability of a clinically significant, sudden or life threatening deterioration of the patient's [] system(s) required my full and direct attention, intervention and personal management. The critical care time is as shown. This time is in addition to time spent performing any reported procedures but includes the following: [x] Data and vital sign review and interpretation [x] Patient assessment, examination and intervention [x] Documentation [x] Medication orders and management Coding Level of Care Code 17563 Diagnoses Diabetic ketoacidosis associated with type 1 diabetes mellitus E10.10 Diabetes mellitus complication detail: without coma Diabetes mellitus type 1 E10.49 Diabetes mellitus complication detail: with other neurological complication Diabetes mellitus complication status: with neurologic complications Chronic kidney disease (CKD) N18.4 Chronic kidney disease stage: stage 4 (GFR 15-29) Leukocytosis D72.829 Leukocytosis type: unspecified Alcoholism F10.20 Time Spent (min) 35
[2024-12-25 09:58] LABS: Hematocrit 34.6 % (37-53); Hemoglobin 11.20 g/dL (11.27-16.99); Mean Corpuscular HGB Conc 32.4 g/dL (30-55); Mean Corpuscular Hemoglobin 31.4 pg (27-33); Mean Corpuscular Volume 96.9 fl (82-101); Nucleated Red Blood Cells % 0 %; Platelet Count 148 10^3/cmm (157-399); Red Blood Count 3.57 10^6/uL (3.85-5.65); White Blood Count 12.98 10^3/uL (3.29-11.43)
[2024-12-25 10:15] LABS: Anion Gap 20.1 (5-19); Blood Urea Nitrogen 39 mg/dL (6-20); Calcium 7.9 mg/dL (8.5-10.5); Carbon Dioxide 16 mmol/L (22-29); Chloride 104 mmol/L (98-107); Glucose 323 mg/dL (65-115); Lipase 161 U/L (13-60); Osmolality Calculated 302 mOsm/kg (285-295); Potassium 5.1 mmol/L (3.5-5.1); Sodium 135 mmol/L (136-145)
[2024-12-25 10:19] LABS: Creatinine Clr Calc Pharmacy 39.9383
[2024-12-25] MEDS: insulin glargine 100 units/1 mL 30 UNIT SUBCUT (10:26)
[2024-12-25] MEDS: guaiFENesin-dextromethorphan UDC 10 mL PO (15:14)
[2024-12-25] MEDS: ondansetron 2 mg/ML SDV 2 mL 4 MG IVP (15:14)
--- NOTE | 2024-12-25 17:20 | CTR_ITS ---
PROCEDURE INFORMATION: Exam: CT Abdomen And Pelvis Without Contrast Exam date and time: 12/25/2024 9:56 PM Age: 44 years old Clinical indication: Pain and abnormal findings; Abnormal lab test; Elevated lipase and elevated wbc; Abdominal pain; Prior surgery; Surgery date: 6+ months; Surgery type: Gb; Epigastric pain with leukocytosis and elevated lipase. History of dka and ckd. ; Additional info: Elevated lipase, dka ckd TECHNIQUE: Imaging protocol: Computed tomography of the abdomen and pelvis without contrast. Radiation optimization: All CT scans at this facility use at least one of these dose optimization techniques: automated exposure control; mA and/or kV adjustment per patient size (includes targeted exams where dose is matched to clinical indication); or iterative reconstruction. COMPARISON: CT abdomen pelvis con [id number] 03/27/2024 2:35 PM RADIATION DOSE METRICS: Total DLP (mGy-cm): 1187.85 FINDINGS: Liver: Fatty liver. Gallbladder and biliary ducts: Cholecystectomy clips. Pancreas: Pancreatitis without definite acute peripancreatic fluid collection. Spleen: Normal. No splenomegaly. Adrenal glands: Normal. No mass. Kidneys and ureters: Horseshoe kidney. Stomach and bowel: Few scattered colonic diverticula without definite significant acute inflammatory changes. Colonic diverticulosis without definite significant acute inflammatory changes. Appendix: No evidence of appendicitis. Intraperitoneal space: Unremarkable. No free air. No significant fluid collection. Vasculature: Aortic atherosclerosis. Lymph nodes: Unremarkable. No enlarged lymph nodes. Urinary bladder: Unremarkable as visualized. Reproductive: Unremarkable as visualized. Bones/joints: Mild degenerative changes of lumbar vertebral bodies. Soft tissues: Unremarkable. CT/CT abdomen pelvis con [id number] IMPRESSION: Pancreatitis without definite acute peripancreatic fluid collection.
[2024-12-25] MEDS: INSULIN REGULAR IN 0.9 % NACL 100 UNIT/100 ML BAG 7 UNIT IV ×2 (17:45→19:00)
--- NOTE | 2024-12-25 19:57 | PC.NURSE ---
Insulin order change: New insulin protocol ordered per Dr. Gunn. Previous order was discontinued and rate of infusion continued on new order.
[2024-12-25 22:24] LABS: Anion Gap 12.2 (5-19); Blood Urea Nitrogen 38 mg/dL (6-20); Calcium 8.5 mg/dL (8.5-10.5); Carbon Dioxide 22 mmol/L (22-29); Chloride 107 mmol/L (98-107); Creatinine Clr Calc Pharmacy 46.8242; Glucose 170 mg/dL (65-115); Magnesium 2.0 mg/dL (1.7-2.3); Osmolality Calculated 297 mOsm/kg (285-295); Potassium 4.2 mmol/L (3.5-5.1); Sodium 137 mmol/L (136-145)
[2024-12-26] VITALS (36 sets, daily range): BP systolic 129–180; BP diastolic 64–116; PULSE 70–89; RESP 13–25; TEMP 36.3–36.8; O2SAT 95–100; BMI 32.3
--- NOTE | 2024-12-26 01:09 | PC.NURSE ---
Labs: Dr. Flores gave telephone orders for a triglyceride, lipase, and CMP lab order.
--- NOTE | 2024-12-26 01:11 | PC.NURSE ---
Melatonin: Patient requested something for sleep, Dr. Flores gave telephone orders for 9mg melatonin PO ONCE.
[2024-12-26 01:24] LABS: Anion Gap 13.0 (5-19); Blood Urea Nitrogen 35 mg/dL (6-20); Calcium 8.3 mg/dL (8.5-10.5); Carbon Dioxide 22 mmol/L (22-29); Chloride 106 mmol/L (98-107); Creatinine Clr Calc Pharmacy 46.8242; Glucose 194 mg/dL (65-115); Osmolality Calculated 297 mOsm/kg (285-295); Potassium 4.0 mmol/L (3.5-5.1); Sodium 137 mmol/L (136-145)
[2024-12-26] MEDS: MELATONIN 3 MG TABLET 9 MG PO (01:30)
[2024-12-26 01:48] LABS: Triglycerides 142 mg/dL (0-150)
[2024-12-26] MEDS: insulin glargine 100 units/1 mL 40 UNIT SUBCUT ×2 (02:56→20:45)
--- NOTE | 2024-12-26 03:28 | PC.NURSE ---
Transition: Patient's anion gap was closed 2 BMP checks in a row, Dr. Flores gave telephone orders for 40units lantus ONCE, leave insulin and D5 running for two hours, and allow patient to eat. Dr. Flores also gave orders to restart sliding scale ACHS.
[2024-12-26] MEDS: ATORVASTATIN 10 MG TABLET PO (04:56)
[2024-12-26] MEDS: multivitamin therapeutic Tablet 1 TAB PO (04:56)
[2024-12-26 04:57] LABS: Alanine Aminotransferase 18 U/L (0-41); Albumin Level 3.0 g/dL (3.5-5.2); Alkaline Phosphatase 106 U/L (40-130); Anion Gap 12.8 (5-19); Aspartate Amino Transferase 20 U/L (0-40); Blood Urea Nitrogen 32 mg/dL (6-20); Calcium 8.1 mg/dL (8.5-10.5); Carbon Dioxide 22 mmol/L (22-29); Chloride 106 mmol/L (98-107); Creatinine Clr Calc Pharmacy 48.4965; Globulin 2.3 g/dL (1.3-4.6); Glucose 249 mg/dL (65-115); Magnesium 1.8 mg/dL (1.7-2.3); Osmolality Calculated 299 mOsm/kg (285-295); Potassium 3.8 mmol/L (3.5-5.1); Sodium 137 mmol/L (136-145); Total Protein 5.3 g/dL (6.6-8.7)
[2024-12-26 05:19] LABS: Lipase 580 U/L (13-60)
[2024-12-26 09:23] LABS: Anion Gap 12.9 (5-19); Blood Urea Nitrogen 30 mg/dL (6-20); Calcium 8.1 mg/dL (8.5-10.5); Carbon Dioxide 20 mmol/L (22-29); Chloride 106 mmol/L (98-107); Creatinine Clr Calc Pharmacy 55.1676; Glucose 246 mg/dL (65-115); Osmolality Calculated 294 mOsm/kg (285-295); Potassium 3.9 mmol/L (3.5-5.1); Sodium 135 mmol/L (136-145)
[2024-12-26] MEDS: dextrose 5%-ns + KCl 20 20 MEQ/1,000 ML BAG 75 MEQ IV (09:40)
--- NOTE | 2024-12-26 12:25 | P.PN_ITS ---
Subjective 2 Subjective: 44-year-old male states he is an alcoholic and was drinking 1/5 a day for years stopped for 3 months then drank 1/5 a day the last 4 days prior to admission. He think this is why he was sick. States in the past he has had withdrawals and required 5 days in the hospital. Gap closed but after he ate he had more pain and recurrent DKA with evidence of pancreatitis with lipase 169. Patient was started back on insulin drip and made n.p.o. except for no calorie clears overnight. He states his pain is significantly improved and he feels hungry. He wants to try low-fat diet for lunch. Lipase this morning 550 Patient talked with discharge planning is interested in going to outpatient drug rehab counseled. He reports stress from his adult daughters as well as caring for 2 disabled family members. 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 and Charcot left foot Vitals/I&O/Wt Last Vital Signs Temp 97.9 F 12/26/24 04:00 Pulse 76 12/26/24 09:00 Resp 22 H 12/26/24 09:00 BP 163/102 12/26/24 10:00 Pulse Ox 97 12/26/24 10:00 O2 Del Method Room Air 12/26/24 08:23 12/25/24 12/26/24 12/26/24 22:59 05:59 14:59 Intake Total 1110.615 / 8320.823 7187.483 / 3118.365 200 / 200 Balance 1110.615 / 1609.264 6758.483 / 3118.365 200 / 200 Weight last 48 hrs Weight 127 kg Weight 122.924 kg Weight 123 kg Weight 122.47 kg Physical Exam 2 Narrative: General well-developed well-nourished tall obese male 6 foot 6 and height 270 pounds CV regular rate and rhythm Lungs clear to auscultation bilaterally Abdomen positive bowel tones soft nontender Calves no tenderness cords pretibial Mentation alert and oriented x 3 He is not tremulous Data 12/25/24 09:50 12/26/24 08:52 Micro: Microbiology 12/24/24 19:02 Blood Culture - Preliminary Blood NEGATIVE TO DATE 12/24/24 19:01 Blood Culture - Preliminary Blood NEGATIVE TO DATE A&P Assessment and plan 1. Diabetic ketoacidosis associated with type 1 diabetes mellitus: This anion gap has been 12-13 since 2144 on 12/25/2024. Discontinue insulin drip and continue with Lantus 40 units SQ nightly first dose given last night resume sliding scale insulin 2. Diabetes mellitus type 1: Counseled patient that anytime he is sick he can take 10 units for half his usual 34 unit insulin but needs to have some long-acting insulin given every 24 hour. And he suck it hard sugared candy to keep his blood sugars under control. He should do this even if he is coming to the hospital just to decrease the DKA Patient was counseled regarding his diabetes and kidney disease 3. Chronic kidney disease (CKD): Creatinine running 3.8 which represents a significant worsening. Patient is counseled regarding high risk of progressing to dialysis. He is on losartan needs additional counseling regarding this and especially to avoid NSAIDs completely The creatinine is down to 2.5. 4. Leukocytosis: Unclear etiology may be DKA but in the past DKA has never had elevated white count since 2023. check blood cultures Patient reports cough. Viral panel was negative continue cough medication. White count may be due to 5. Alcoholism: start ciwa and thiamine. monitor overnight. pt want to stop drinking add clonidine 0.1 mg 3 times daily PDMP PDMP Reviewed: Not Reviewed Attestations 2 Medical Necessity Statement*: Patient remains in hospital for monitoring of his pancreatitis and alcohol withdrawal and possibility of returning DKA. Anticipate 1-2 additional midnights in the hot Coding Level of Care Code Acute Code for [facility] Fwd Diagnoses Diabetic ketoacidosis associated with type 1 diabetes mellitus E10.10 Diabetes mellitus complication detail: without coma Diabetes mellitus type 1 E10.49 Diabetes mellitus complication detail: with other neurological complication Diabetes mellitus complication status: with neurologic complications Chronic kidney disease (CKD) N18.4 Chronic kidney disease stage: stage 4 (GFR 15-29) Leukocytosis D72.829 Leukocytosis type: unspecified Alcoholism F10.20 Time Spent (min) 35
--- NOTE | 2024-12-26 19:34 | PC.NURSE ---
BMP due at 1830. Lab attempted to draw and told oncoming nurse that patient was refusing draw. This nurse educated patient and attempted to pull from IV sites, no blood return. Patient still refusing draw
--- NOTE | 2024-12-26 21:31 | PC.NURSE ---
Addendum entered by MITCH Pierson 12/26/24 21:33: Stopped due to patient transitioned to subcutaneous insulin, is eating and keeping meals down. Original Note: Provider gave orders to stop D5+20mEq. Stopped and placed order on hold. See MAR
[2024-12-27] VITALS (32 sets, daily range): BP systolic 110–164; BP diastolic 56–104; PULSE 61–86; RESP 3–28; TEMP 36.7–37; O2SAT 89–100
[2024-12-27 03:58] LABS: Hematocrit 27.7 % (37-53); Hemoglobin 9.10 g/dL (11.27-16.99); Mean Corpuscular HGB Conc 32.9 g/dL (30-55); Mean Corpuscular Hemoglobin 31.0 pg (27-33); Mean Corpuscular Volume 94.2 fl (82-101); Nucleated Red Blood Cells % 0 %; Platelet Count 103 10^3/cmm (157-399); Red Blood Count 2.94 10^6/uL (3.85-5.65); White Blood Count 4.99 10^3/uL (3.29-11.43)
[2024-12-27 04:18] LABS: Alanine Aminotransferase 18 U/L (0-41); Albumin Level 3.0 g/dL (3.5-5.2); Alkaline Phosphatase 108 U/L (40-130); Anion Gap 11.8 (5-19); Aspartate Amino Transferase 22 U/L (0-40); Blood Urea Nitrogen 20 mg/dL (6-20); Calcium 8.2 mg/dL (8.5-10.5); Carbon Dioxide 24 mmol/L (22-29); Chloride 107 mmol/L (98-107); Creatinine Clr Calc Pharmacy 65.6757; Globulin 2.2 g/dL (1.3-4.6); Glucose 84 mg/dL (65-115); Osmolality Calculated 290 mOsm/kg (285-295); Potassium 3.8 mmol/L (3.5-5.1); Sodium 139 mmol/L (136-145); Total Protein 5.2 g/dL (6.6-8.7)
[2024-12-27] MEDS: ATORVASTATIN 10 MG TABLET PO (05:35)
[2024-12-27] MEDS: multivitamin therapeutic Tablet 1 TAB PO (05:35)
--- NOTE | 2024-12-27 09:11 | PM.DCS ---
Discharge Providers Date of Admission: 12/24/24 17:40 Date of Discharge: December 27, 2024 Attending Provider at Admission: Shiraz Gunn MD Attending Provider at Discharge: Enrike Pugh MD Primary Care Provider: Delifno Cruz MD Diagnoses at Discharge Discharge Diagnosis 1. Diabetic ketoacidosis associated with type 1 diabetes mellitus: 2. Diabetes mellitus type 1: 3. Chronic kidney disease (CKD): 4. Leukocytosis: 5. Alcoholism: Reason for Visit Reason for Visit: Elevated Glucose Brief History: Per HPI Erik Valdez is a 44 year old male with history of IDDM, alcoholism, CKD and past DKA came in with elevated blood sugars nausea vomiting diarrhea and found to have DKA. He was last admitted for DKA in March 2024. The patient reports that 3 days ago his Dexcom was reading 50. He did not check this with his home glucometer. He last took his Lantus yesterday AM. This morning he could barely walk so did not take it. He felt worse and came to the ER. He has had chills but no fever he has been nauseated vomiting and diarrhea today. States his breathing is fast but not as fast as past episodes of DKA. He does not have specific chest pain or abdominal pain but he feels achy all over. Patient lives with his uncle and grandpa. He is caring for his grandfather who is missing a leg. Patient states he does not otherwise work but not on disability. Hospital Course Hospital Course Patient was admitted to the hospital further evaluation and management of hyperglycemia with concern for DKA and type 1 diabetes melitis. He was started on treatment as per DKA protocol with insulin drip and IV hydration. As per patient his blood sugar has been pretty labile recently. He takes 35 units of Lantus along with Humalog as per sliding scale. He states his blood sugars have been dropping down to 50 recently within last 1 week. He did not take the Lantus on the day of admission. During hospitalization he was found to have elevated blood pressures for which antihypertensive were adjusted. He is been discharged in hemodynamically stable condition with advised to decrease Lantus to 30 units along with continuation of home dose of Humalog sliding scale premeals. Hydralazine 25 mg 3 times daily has been added to his medication list. He is advised to check his blood pressure daily at home maintain a blood pressure diary for further adjustment of antihypertensive with his PCP. Physical Exam Narrative: General well-developed well-nourished tall obese male 6 foot 6 and height 270 pounds CV regular rate and rhythm Lungs clear to auscultation bilaterally Abdomen positive bowel tones soft nontender Calves no tenderness cords pretibial Mentation alert and oriented x 3 He is not tremulous Discharge Data Studies Completed and Pending Completed Studies During Hospitalization Category Date Time Status CT abdomen pelvis wo con [id number] Routine Cat Scan 12/25/24 17:20 Completed XR chest 1V portable [id number] Stat Exams 12/24/24 16:45 Completed Pending at discharge Category Date Time Status A1C [Hemoglobin A1C] Routine Lab 12/27/24 02:58 Received B12 [Vitamin B12] Routine Lab 12/27/24 02:58 Received Blood Culture Stat Lab 12/24/24 19:02 Results Radiology Impressions Chest X-Ray 12/24/24 16:45 IMPRESSION: Mild opacity at the left lung base which may represent atelectasis. Abdomen/Pelvis CT 12/25/24 17:20 IMPRESSION: Pancreatitis without definite acute peripancreatic fluid collection. Laboratory Results WBC 4.99 10^3/uL (3.29-11.43) 12/27/24 02:58 RBC 2.94 10^6/uL (3.85-5.65) L 12/27/24 02:58 Hgb 9.10 g/dL (11.27-16.99) L 12/27/24 02:58 Hct 27.7 % (37-53) L 12/27/24 02:58 MCV 94.2 fl (82-101) 12/27/24 02:58 MCH 31.0 pg (27-33) 12/27/24 02:58 MCHC 32.9 g/dL (30-55) 12/27/24 02:58 RDW 13.2 % (12.1-15.1) 12/27/24 02:58 Plt Count 103 10^3/cmm (157-399) L 12/27/24 02:58 MPV 10.6 fL (7.4-10.4) H 12/27/24 02:58 Neut % (Auto) 66.4 % 12/27/24 02:58 Lymph % (Auto) 24.2 % 12/27/24 02:58 Harris % (Auto) 7.4 % 12/27/24 02:58 Eos % (Auto) 1.4 % 12/27/24 02:58 Baso % (Auto) 0.2 % 12/27/24 02:58 Neut # (Auto) 3.31 10^3/uL (1.8-7.7) 12/27/24 02:58 Lymph # (Auto) 1.2 10^3/uL (0.8-4.8) 12/27/24 02:58 Harris # (Auto) 0.4 10^3/uL (0.2-0.9) 12/27/24 02:58 Eos # (Auto) 0.1 10^3/uL (0.0-0.8) 12/27/24 02:58 Baso # (Auto) 0.0 10^3/uL (0.0-0.1) 12/27/24 02:58 Nucleated RBC % (auto) 0 % 12/27/24 02:58 Nucleated RBCs # 0.0 /100WBC 12/27/24 02:58 Specimen Type Venous 12/24/24 19:01 Sample Site Not specified 12/24/24 19:01 ABG pH 6.89 (7.35-7.45) L* 12/24/24 16:15 ABG pCO2 15.1 mmHg (35-45) L* 12/24/24 16:15 ABG pO2 127.0 mmHg (80.0-100.0) H 12/24/24 16:15 ABG PO2/FiO2 Ratio 604 12/24/24 16:15 ABG HCO3 2.9 mmol/L (22-26) L 12/24/24 16:15 ABG O2 Saturation 97.5 12/24/24 16:15 ABG Base Excess -28.6 mmol/L (-2.0-2.0) L 12/24/24 16:15 Thaddeus Test N/a 12/24/24 19:01 VBG pH 7.19 (7.32-7.42) L 12/24/24 19:01 VBG pCO2 22.1 mmHg (41-51) L 12/24/24 19:01 VBG pO2 50.1 mmHg (25-40) H 12/24/24 19:01 VBG HCO3 8.4 mmol/L (24-28) L 12/24/24 19:01 VBG Base Excess -18.0 mmol/L (-3.0-3.0) L 12/24/24 19:01 VBG Hematocrit 36.3 % (42-52) L 12/24/24 19:01 A-a O2 Gradient Not Reportable 12/24/24 16:15 Hematocrit 35.9 % (42-52) L 12/24/24 16:15 Hgb O2 Saturation 95.6 % (95-100) 12/24/24 16:15 Carboxyhemoglobin 0.6 %THgb (0.4-20.1) 12/24/24 16:15 Methemoglobin 1.4 % (0.4-1.5) 12/24/24 16:15 Total Hemoglobin 11.7 g/dL (14-18) L 12/24/24 16:15 Sodium 141.0 mmol/L (131-143) 12/24/24 16:15 Potassium 4.8 mmol/L (3.5-5.0) 12/24/24 16:15 Glucose 430.0 mg/dL (70-115) H 12/24/24 16:15 Ionized Calcium 1.2 mmol/L (1.1-1.4) 12/24/24 16:15 O2 Delivery Device Room air 12/24/24 19:01 FiO2 21.0 % 12/24/24 19:01 Brinell Tester ID Chris 12/24/24 19:01 Sodium 139 mmol/L (136-145) 12/27/24 02:58 Potassium 3.8 mmol/L (3.5-5.1) 12/27/24 02:58 Chloride 107 mmol/L (98-107) 12/27/24 02:58 Carbon Dioxide 24 mmol/L (22-29) 12/27/24 02:58 Anion Gap 11.8 (5-19) 12/27/24 02:58 BUN 20 mg/dL (6-20) 12/27/24 02:58 Creatinine 2.1 mg/dL (0.7-1.2) H 12/27/24 02:58 GFR Calculation 34.2 mL/min (90-130) L 12/27/24 02:58 Glucose 84 mg/dL (65-115) 12/27/24 02:58 POC Glucose 81 mg/dL (70-110) 12/27/24 07:20 Calculated Osmolality 290 mOsm/kg (285-295) 12/27/24 02:58 Calcium 8.2 mg/dL (8.5-10.5) L 12/27/24 02:58 Phosphorus 2.3 mg/dL (2.5-4.5) L D 12/26/24 03:48 Magnesium 1.8 mg/dL (1.7-2.3) 12/26/24 03:48 Total Bilirubin 0.3 mg/dL (0.15-1.2) 12/27/24 02:58 AST 22 U/L (0-40) 12/27/24 02:58 ALT 18 U/L (0-41) 12/27/24 02:58 Alkaline Phosphatase 108 U/L (40-130) 12/27/24 02:58 Total Protein 5.2 g/dL (6.6-8.7) L 12/27/24 02:58 Albumin 3.0 g/dL (3.5-5.2) L 12/27/24 02:58 Globulin 2.2 g/dL (1.3-4.6) 12/27/24 02:58 Triglycerides 142 mg/dL (0-150) 12/26/24 01:03 [employer]ICAL [employer]STRUMENT [employer] Lipase 580 U/L (13-60) H 12/26/24 03:48 Urine Color Yellow (Yellow) 12/24/24 20:18 Urine Appearance Clear (CLEAR) 12/24/24 20:18 Urine pH 5.0 (5-7) 12/24/24 20:18 Ur Specific [place] 1.019 (1.005-1.030) 12/24/24 20:18 Urine Protein 3+ (Negative) A 12/24/24 20:18 Urine Glucose (UA) 3+ (Normal) H 12/24/24 20:18 Urine Ketones Trace (Negative) 12/24/24 20:18 Urine Blood Trace (Negative) A 12/24/24 20:18 Urine Nitrate Negative (Negative) 12/24/24 20:18 Urine Bilirubin Negative (Negative) 12/24/24 20:18 Urine Urobilinogen 0.2 mg/dL (Negative) 12/24/24 20:18 Ur Leukocyte Esterase Negative (Negative) 12/24/24 20:18 Urine RBC 0-2 /hpf (0-2) 12/24/24 20:18 Urine WBC 0-5 /hpf (0-5) 12/24/24 20:18 Ur Squamous Epith Cells 0-5 /hpf (0-5) 12/24/24 20:18 Amorphous Sediment Not Reportable 12/24/24 20:18 Urine Bacteria None seen /hpf (NONE) 12/24/24 20:18 Hyaline Casts 8.26 /lpf 12/24/24 20:18 Ethyl Alcohol 43 mg/dL (0-10) H 12/24/24 15:25 Serum Ketones Positive (Negative) H 12/24/24 15:25 Influenza A (PCR) Negative (Negative) 12/24/24 20:31 Influenza Type B (PCR) Negative (Negative) 12/24/24 20:31 RSV (PCR) Negative (Negative) 12/24/24 20:31 SARS-CoV-2 (PCR) Negative (Negative) 12/24/24 20:31 Vitals Last Vital Signs Temp 98.6 F 12/27/24 08:42 Pulse 76 12/27/24 09:07 Resp 16 12/27/24 09:07 BP 164/104 12/27/24 08:15 Pulse Ox 99 12/27/24 09:07 O2 Del Method Room Air 12/27/24 09:07 Discharge Plan Discharge Patient Disposition: Home Condition: Stable Prescriptions: New hydralazine 25 mg Tablet 25 mg PO TID Qty: 25 0RF Continued losartan 25 mg tablet 25 mg PO DAILY Qty: 30 11RF (DME) Dexcom G6 [employer] Misc See Rx Instructions .Route Qty: 1 11RF Rx Instructions: As directed (DME) Dexcom G6 Transmitter Device See Rx Instructions .Route Qty: 1 11RF Rx Instructions: As directed (DME) Dexcom G6 Sensor Device See Rx Instructions .Route Qty: 3 11RF Rx Instructions: As directed atorvastatin [Lipitor] 10 mg tablet 10 mg PO DAILY Qty: 90 3RF (DME) Custom [place] boot See Rx Instructions .Route .MEDSUPPLY Qty: 1 0RF Rx Instructions: As directed by [facility] in [place], [place] (DME) diabetic shoes with 3 sets of inserts See Rx Instructions .ROUTE .MEDSUPPLY Qty: 1 0RF Rx Instructions: As directed by [facility] in [place], [place] Changed insulin lispro [Humalog KwikPen Insulin] 100 unit/mL insulin pen See Protocol SUBCUT TID Qty: 15 11RF Protocol: Insulin Corrective High-Dose Regimen Condition: Fingerstick Blood Glucose Dose/Route: Insulin Units Condition: 141-180 mg/dl Dose/Route: 6 units/SQ Condition: 181-220 mg/dl Dose/Route: 8 units/SQ Condition: 221-260 mg/dl Dose/Route: 10 units/SQ Condition: 261-300 mg/dl Dose/Route: 12 units/SQ Condition: 301-350 mg/dl Dose/Route: 14 units/SQ Condition: 351-400 mg/dl Dose/Route: 16 units/SQ Condition: greater than 400 mg/dl Dose/Route: 18 units/SQ insulin glargine [Lantus Solostar U-100 Insulin] 100 unit/mL (3 mL) insulin pen 30 unit SUBCUT QPM Qty: 15 11RF Discharge Order = DC NOW: Discharge Order (Routine); Ordered 12/27/24 Ordered By: Enrike Pugh Referrals: [facility] [Staff Physician, Behavioral Health] Referral Note: Walk In Assessment at [facility] Come into [facility] in [place] M-F 7:30AM-4:30PM for Walk In assessment. Ask for referal to ITCD program. Delfino Cruz MD [Primary Care Provider, Family Practice] - 01/10/25 1:40 pm Discharge Diet: Diabetic Discharge Activity: Resume usual activity and Increase activity as tolerated Patient Instructions: Diabetes and Diet, Hydralazine (By mouth), Acute Kidney Injury (DC), Diabetic Ketoacidosis (DC), Leukocytosis (DC), Opioid Safety, Patient Portal & [facility] Instructions Activity Restrictions/Additional Instructions: Take Lantus 30 units daily along with insulin sliding scale. Take hydralazine 25 mg 3 times a day. Check your blood pressure daily at home maintain a blood pressure diary. Goal blood pressure less than 140/90 mmHg. Follow-up with your primary care provider within next 1 week. Discharge Attestations Time Spent in Discharge Care*: greater than 30 min Specific Discharge Activities: educating patient, educating and/or supporting family/caregiver, discussing with pcp/other providers, discussing with housing case manager/social workers/dc planners, documenting/other paperwork and evaluating patient/reviewing data Status at Discharge: Cognitive status at discharge: cognitively intact, Behavioral status at discharge: cooperative, Functional status at discharge: independent ambulation, Overall status at discharge: patient is back to baseline Quality Metrics Clinical Quality Measures [ No reported AMI, CVA or VTE this stay] Coding Level of Care Code 92307 Total time (in minutes) for Discharge: 60 Diagnoses Diabetic ketoacidosis associated with type 1 diabetes mellitus E10.10 Diabetes mellitus complication detail: without coma Diabetes mellitus type 1 E10.49 Diabetes mellitus complication detail: with other neurological complication Diabetes mellitus complication status: with neurologic complications Chronic kidney disease (CKD) N18.4 Chronic kidney disease stage: stage 4 (GFR 15-29) Leukocytosis D72.829 Leukocytosis type: unspecified Alcoholism F10.20
[2024-12-27 09:32] LABS: Estmated Average Glucose 200; Hemoglobin A1C 8.6 % (4.0-6.0)
[2024-12-27 09:47] LABS: Vitamin B12 488 pg/mL (232-1245)
== END 2024-12-27 10:30 | disposition home or self-care (01) | DRG 420 ==
LOC: ER 16:23 → ICU 20:13
PROVIDERS: Internal Medicine; Admitting Provider Internal Medicine; Emergency Provider Family Medicine; PCP Family Medicine; Visit Provider Student in an Organized Health Care Education/Training Program
DX: E10.10 Type 1 diabetes mellitus with ketoacidosis without coma (principal); Z79.4 Long term (current) use of insulin; T38.3X6A Underdosing of insulin and oral hypoglycemic [antidiabetic] drugs, initial encounter; Z91.128 Patient's intentional underdosing of medication regimen for other reason; Z79.85 Long-term (current) use of injectable non-insulin antidiabetic drugs; E10.22 Type 1 diabetes mellitus with diabetic chronic kidney disease; N18.9 Chronic kidney disease, unspecified; E10.40 Type 1 diabetes mellitus with diabetic neuropathy, unspecified; E10.610 Type 1 diabetes mellitus with diabetic neuropathic arthropathy; F17.200 Nicotine dependence, unspecified, uncomplicated; K85.20 Alcohol induced acute pancreatitis without necrosis or infection; F10.20 Alcohol dependence, uncomplicated
CPT/HCPCS: 36415; 36416; 36600; 71045; 74176; 80048; 80051; 80053; 80307; 81001; 82009; 82330; 82607; 82803; 82805; 82962; 83036; 83690; 83735; 84100; 84478; 85025; 87040; 87637; 94664; 96365; 96366; 96367; 96372; 96375; 99291; J1650; J1815; J2060; J2405; J2470; J7030; J7070; J7121; J9999

== ENCOUNTER → 2025-01-10 14:15 | Outpatient (BNVA) | payer BC, MEDICAID, SELFPAY | PROVIDERS: PCP Family Medicine; Visit Provider Family Medicine | DX: E10.10 Type 1 diabetes mellitus with ketoacidosis without coma (principal) | CPT/HCPCS: 80053; 85025 ==

== ENCOUNTER → 2025-02-03 12:16 | Outpatient (BNVA) | payer BC, MEDICAID, SELFPAY | PROVIDERS: PCP Family Medicine; Visit Provider Family Medicine | DX: I10 Essential (primary) hypertension (principal); E78.5 Hyperlipidemia, unspecified | CPT/HCPCS: 80053 ==

== ENCOUNTER 2025-02-07 14:18 | Outpatient (CLI) | payer BC, MEDICAID, SELFPAY ==
--- NOTE | 2025-02-07 14:23 | US_ITS ---
WS: [id number] ULTRASOUND SOFT TISSUES LEFT mid back. HISTORY: LOCALIZED SWELLING,MASS LUMP, TRUNK COMPARISON: None available. TECHNIQUE: 2-D and color Doppler imaging is submitted. Palpable area along the LEFT mid back corresponds to heterogeneous but predominantly hyperechoic mass measuring 1.2 x 2.9 x 0.9 cm. This is located in the area of interest as directed by the patient. No increased vascularity. US/US soft tissue/extremity [id number] IMPRESSION: Palpable area along the posterior LEFT mid back most consistent with a lipoma.
== END 2025-02-07 14:19 | disposition home or self-care (01) ==
PROVIDERS: PCP Family Medicine; Visit Provider Dermatology
DX: R22.2 Localized swelling, mass and lump, trunk (principal)
CPT/HCPCS: 76882

== ENCOUNTER 2025-02-20 11:13 | Inpatient (IN) | payer BC, MEDICAID, SELFPAY ==
[2025-02-20] VITALS (19 sets, daily range): BP systolic 100–167; BP diastolic 51–85; PULSE 84–138; RESP 11–47; TEMP 36.9; O2SAT 91–100; BMI 31.8; BMI 31.6
--- NOTE | 2025-02-20 11:13 | ED_ITS ---
HPI - Nausea/Vomiting/Diarrhea 2 General: Chief complaint: Nausea/Vomiting/Diarrhea Stated complaint: hyperglycemia Source: patient and EMS Mode of arrival: EMS Limitations: no limitations History of Present Illness: 44-year-old male history of type 1 diabe lamont states over last 2 days has been having nausea and vomiting. States he feels like he is going to DKA states his blood sugar has been running high. He denies any pain denies any fevers is tachycardic here. Related Data Previous Rx's ?Medication ?Instructions ?Recorded blood-glucose transmitter (Dexcom #1 ea 11/04/24 G6 Transmitter device) blood-glucose,fibre technologist,cont #1 ea 11/04/24 (Dexcom G6 [place] Setter) losartan 25 mg tablet 25 mg PO DAILY #30 tabs 10/25 03/20 blood-glucose sensor (Dexcom G6 #3 ea 11/16/24 Sensor device) atorvastatin 10 mg tablet (Lipitor) 10 mg PO DAILY #90 tabs 11/30/24 hydralazine 25 mg tablet 25 mg PO TID #25 tabs insulin glargine 100 unit/mL (3 30 unit (0.3 mL) SUBCU T QPM #15 mL 12/27/24 mL) subcutaneous pen (Lantus Solostar U-100 Insulin) insulin lispro 100 unit/mL See Protocol SUBCUT TID #15 mL 12/27/24 subcutaneous pen (Humalog KwikPen (U-100) Insulin) hydralazine 10 mg tablet 10 mg PO TID #90 tabs Cam Boot #1 ea 02/02/25 Custom [place] boot #1 ea 02/02/25 diabetic shoes with 3 sets of #1 ea 02/03/25 inserts Allergies Allergy/AdvReac Type Severity Reaction Status Date / Time No Known Allergies Allergy Verified 02/02/25 08:01 Review of Systems 2 GI: Reports: vomiting PFSH ED 2 PFSH: Medical History Hypertension Chronic kidney disease (CKD) Insulin dependent diabetes mellitus Surgical History S/P cholecystectomy Social History Smoking and tobacco/nicotine status: never used tobacco/nicotine Alcohol intake: current Substance/Drug Use: never Additional social history: Patient wants full code as discussed on 12/24/2024 with Shiraz Gunn MD Household members: family 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 Physical Exam 2 Const: COMMON NORMALS: patient oriented x3 HENMT: COMMON NORMALS: normocephalic and atraumatic HEAD & SCALP: n ormocephalic and atraumatic Neck/C-Spine: COMMON NORMALS: full ROM and supple Chest: COMMONS NORMALS: normal inspection of the chest and normal palpation of entire chest wall Resp: COMMON NORMALS: normal respiratory effort, No retractions, No use of accessory muscles and clear to auscultation bilaterally AUSCULTATION: clear to auscultation bilaterally Cardio: COMMON NORMALS: regular rhythm and No murmurs present (Cardio) R ATE: tachycardic RHYTHM: regular rhythm GI: COMMON NORMALS: Normal to inspection, nondistended, normoactive bowel sounds present, Soft to palpation, non-tender and no masses PALPATION: Yes Soft to palpation Extremity: COMMON NORMALS: normal to inspection and full ROM Neuro: COMMON NORMALS: patient oriented x3, moves all extremities and no focal motor deficits Psych: COMMON NORMALS: mental status grossly normal, Normal thought process present and cooperative THOUGHT PROCESS: Normal thought process present Skin: COMMON NORMALS: no rashes or lesions noted and no wounds GENERAL SKIN EXAM: no rashes or lesions noted Course 2 Vital Signs: Vital signs: Vital Signs Temperature 98.5 F 02/20/25 11:02 Pulse Rate 116 H 02/20/25 11:02 Respiratory Rate 40 H 02/20/25 11:02 Blood Pressure 100/80 02/20/25 11:02 Pulse Oximetry 97 02/20/25 11:02 Oxygen Delivery Me thod Room Air 02/20/25 11:02 MDM - Nausea/Vomiting/Diarrhea Medical Decision Making 44-year-old male presents with vomiting along with hyperglycemia patient is found to be in DKA with high anion gap metabolic acidosis. Vomiting has improved. Zofran did give him IV fluids will start him on insulin drip will give him bicarb his spoke to hospitalist will admit to the ICU. He has no signs of infection here. critical care time 35 minutes The high probability of a clinically significant, sudden or life threatening deterioration of the patient's endocrine system(s) required my full and direct attention, intervention and personal management. The critical care time is as shown. This time is in addition to time spent performing any reported procedures but includes the following: [x] Data and vital sign review and interpretation [x] Patient assessment, examination and intervention [x] Documentation [x] Medication orders and management Medical Records I reviewed the patient's medical records. Lab Data I reviewed the patient's lab results. 02/20/25 11:14 02/20/25 11:14 Laboratory Results WBC 11.60 10^3/uL (3.29-11.43) H 02/20/25 11:14 RBC 3.52 10^6/uL (3.85-5.65) L 02/20/25 11:14 Hgb 10.70 g/dL (11.27-16.99) L 02/20/25 11:14 Hct 35.6 % (37-53) L 02/20/25 11:14 MCV 101.1 fl (82-101) H 02/20/25 11:14 MCH 30.4 pg (27-33) 02/20/25 11:14 MCHC 30.1 g/dL (30-55) 02/20/25 11:14 RDW 14.0 % (12.1-15.1) 02/20/25 11:14 Plt Count 139 10^3/cmm (157-399) L 02/20/25 11:14 MPV 9.9 fL (7.4-10.4) 02/20/25 11:14 Neut % (Auto) 86.4 % 02/20/25 11:14 Lymph % (Auto) 8.5 % 02/20/25 11:14 [place] % (Auto) 4.2 % 02/20/25 11:14 Eos % (Auto) 0.0 % 02/20/25 11:14 Baso % (Auto) 0.3 % 02/20/25 11:14 Neut # (Auto) 10.01 10^3/uL (1.8-7.7) H 02/20/25 11:14 Lymph # (Auto) 1.0 10^3/uL (0.8-4.8) 02/20/25 11:14 [place] # (Auto) 0.5 10^3/uL (0.2-0.9) 02/20/25 11:14 Eos # (Auto) 0.0 10^3/uL (0.0-0.8) 02/20/25 11:14 Baso # (Auto) 0.0 10^3/uL (0.0-0.1) 02/20/25 11:14 Nucleated RBC % (auto) 0 % 02/20/25 11:14 Nucleated RBCs # 0.0 /100WBC 02/20/25 11:14 Specimen Type Arterial 02/20/25 11:40 Sample Site Radial, left 02/20/25 11:40 ABG pH 7.00 (7.35-7.45) L* 02/20/25 11:40 ABG pCO2 13.9 mmHg (35-45) L* 02/20/25 11:40 ABG pO2 127.0 mmHg (80.0-100.0) H 02/20/25 11:40 ABG PO2/FiO2 Ratio 604 02/20/25 11:40 ABG HCO3 3.4 mmol/L (22-26) L 02/20/25 11:40 ABG Base Excess -26.0 mmol/L (-2.0-2.0) L 02/20/25 11:40 Thaddeus Test Pos 02/20/25 11:40 Hematocrit 34.9 % (42-52) L 02/20/25 11:40 O2 Delivery Device Room air 02/20/25 11:40 FiO2 21.0 % 02/20/25 11:40 Insurance Marketing Rep ID [place] 02/20/25 11:40 Sodium 125 mmol/L (136-145) L 02/20/25 11:14 Potassium 6.6 mmol/L (3.5-5.1) H* 02/20/25 11:14 Chloride 79 mmol/L (98-107) L 02/20/25 11:14 Carbon Dioxide 5 mmol/L (22-29) L* 02/20/25 11:14 Anion Gap 47.6 (5-19) H 02/20/25 11:14 BUN 45 mg/dL (6-20) H 02/20/25 11:14 Creatinine 3.9 mg/dL (0.7-1.2) H 02/20/25 11:14 GFR Calculation 16.7 mL/min (90-130) L 02/20/25 11:14 Glucose 812 mg/dL (65-115) H* 02/20/25 11:14 POC Glucose > 600 mg/dL (70-110) H* 02/20/25 11:08 Calculated Osmolality 311 mOsm/kg (285-295) H 02/20/25 11:14 Calcium 8.5 mg/dL (8.5-10.5) 02/20/25 11:14 Phosphorus 6.7 mg/dL (2.5-4.5) H 02/20/25 11:14 Magnesium 2.3 mg/dL (1.7-2.3) 02/20/25 11:14 Total Bilirubin 0.7 mg/dL (0.15-1.2) 02/20/25 11:14 AST 24 U/L (0-40) 02/20/25 11:14 ALT 31 U/L (0-41) 02/20/25 11:14 Alkaline Phosphatase 145 U/L (40-130) H 02/20/25 11:14 Total Protein 6.1 g/dL (6.6-8.7) L 02/20/25 11:14 Albumin 3.6 g/dL (3.5-5.2) 02/20/25 11:14 Globulin 2.5 g/dL (1.3-4.6) 02/20/25 11:14 Serum Ketones Positive (Negative) H 02/20/25 11:14 No radiology studies performed this visit Critical Care Time 2 Critical Care Time: Critical Care Time: Yes Total Critical Care Time: 35 Attestation: The high probability of a clinically significant, sudden or life threatening deterioration of the patient's endocrine system(s) required my full and direct attention, intervention and personal management. The critical care time is as shown. This time is in addition to time spent performing any reported procedures but includes the following: [x] Data and vital sign review and interpretation [x] Patient assessment, examination and intervention [x] Documentation [x] Medication orders and management Discharge Plan Discharge Patient Disposition: Admitted As Inpatient Clinical Impression: Diabetic ketoacidosis associated with type 1 diabetes mellitus Condition: Stable Coding Level of Care Code ED Center Medical Specialist for Jamie Null
--- OUTSIDE RECORDS SUMMARY | 2025-02-20 11:16 | XMS_ITS | Clinical Summary ---
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
--- OUTSIDE RECORDS SUMMARY | 2025-02-20 11:16 | XMS_ITS | Encounter Summary ---
Author Organization [facility] Address [address] [place] [address] Phone Care Team Providers Care Meal Cook Name Role Phone Unavailable Primary Care Provider Unavailabl e Encounter Details Date Type Department Care Team (Late st Contact Info) Description 03/31/2024 Orders Only [facility] [address] [place] [address] Acute nontraumatic kidney injury, not [...]
--- OUTSIDE RECORDS SUMMARY | 2025-02-20 11:16 | XMS_ITS | Clinical Summary ---
Author Organization [facility] Address [address] [place] [id number] Care Team Providers Care Fruit And Vegetable Parer Name Role Phone Unavailable Primary Care Provider [...]
[2025-02-20 11:18] LABS: Hematocrit 35.6 % (37-53); Hemoglobin 10.70 g/dL (11.27-16.99); Mean Corpuscular HGB Conc 30.1 g/dL (30-55); Mean Corpuscular Hemoglobin 30.4 pg (27-33); Mean Corpuscular Volume 101.1 fl (82-101); Nucleated Red Blood Cells % 0 %; Platelet Count 139 10^3/cmm (157-399); Red Blood Count 3.52 10^6/uL (3.85-5.65); White Blood Count 11.60 10^3/uL (3.29-11.43)
[2025-02-20] MEDS: ondansetron 2 mg/ML SDV 2 mL 4 MG IVP (11:24)
[2025-02-20 11:32] LABS: Ketone (Acetest) Serum Positive (Negative)
[2025-02-20 11:35] LABS: Alanine Aminotransferase 31 U/L (0-41); Albumin Level 3.6 g/dL (3.5-5.2); Alkaline Phosphatase 145 U/L (40-130); Anion Gap 47.6 (5-19); Aspartate Amino Transferase 24 U/L (0-40); Blood Urea Nitrogen 45 mg/dL (6-20); Calcium 8.5 mg/dL (8.5-10.5); Chloride 79 mmol/L (98-107); Globulin 2.5 g/dL (1.3-4.6); Magnesium 2.3 mg/dL (1.7-2.3); Sodium 125 mmol/L (136-145); Total Protein 6.1 g/dL (6.6-8.7)
[2025-02-20 11:44] LABS: Osmolality Calculated 311 mOsm/kg (285-295)
[2025-02-20 11:52] LABS: Arterial Blood Gas Hematocrit 34.9 % (42-52); Blood Gas Allen Test Pos; Blood Gas Sample Type Arterial; HCO3 ABG 3.4 mmol/L (22-26); PO2 ABG 127.0 mmHg (80.0-100.0)
[2025-02-20 11:53] LABS: ABG PCO2 13.9 mmHg (35-45); ABG PH Result 7.00 (7.35-7.45); Blood Gas Operator Identificat MONRO; Blood Gas Sample Site Radial, left; PO2 FiO2 Ratio Arterial Blood 604
[2025-02-20 11:54] LABS: Carbon Dioxide 5 mmol/L (22-29); Glucose 812 mg/dL (65-115); Potassium 6.6 mmol/L (3.5-5.1)
[2025-02-20] MEDS: INSULIN REGULAR IN 0.9 % NACL 100 UNIT/100 ML BAG 12 UNIT IV (12:49)
--- NOTE | 2025-02-20 13:07 | PC.NURSE ---
Addendum entered by Manuel Paul RN 02/20/25 13:12: BG too high to read on arrival via glucometer. Original Note: Transfer: Received patient from ER staff at 1243. Patient is awake, alert, oriented to person, place, time, and situation. Transferred without assistance from the ER stretcher to ICU bed. Kussmauls respirations and fruity/alcoholic smelling breath. Started on Insulin drip. HR: 113 BP: 114/67 SPO2: 99 RR: 28 Temp: 97.8
[2025-02-20] MEDS: insulin regular-human 100 units/1 mL 6.2 UNIT IVP (13:54)
--- NOTE | 2025-02-20 15:01 | PC.NURSE ---
Insulin Titration: at 1400, BLood sugar was to high to be measured via bedside glucometer. Indicated BG is greater than 650. Per protocol we are to increase insulin by 9 units/hr, which would put insulin rate at 21 units/hr. Nurse notified physician of new rate. Nurse was advised keep at current rate and titrate per CMP glucose reading, which was sent off to lab at that time. Patient did recent receive a 6 unit push of IV insulin at 1355, right before the POC glucose was checked.
[2025-02-20 15:09] LABS: Alanine Aminotransferase 31 U/L (0-41); Albumin Level 3.6 g/dL (3.5-5.2); Alkaline Phosphatase 145 U/L (40-130); Anion Gap 48.5 (5-19); Aspartate Amino Transferase 24 U/L (0-40); Blood Urea Nitrogen 49 mg/dL (6-20); Calcium 7.9 mg/dL (8.5-10.5); Chloride 82 mmol/L (98-107); Globulin 2.4 g/dL (1.3-4.6); Osmolality Calculated 319 mOsm/kg (285-295); Potassium 5.5 mmol/L (3.5-5.1); Sodium 130 mmol/L (136-145); Total Protein 6.0 g/dL (6.6-8.7)
[2025-02-20 15:13] LABS: Carbon Dioxide 5 mmol/L (22-29); Glucose 746 mg/dL (65-115)
--- NOTE | 2025-02-20 15:26 | PC.NURSE ---
Physician Communication: Nurse verified fluid orders with physician. Currently 1L of NS/HR. Currently lung sounds are clear, no peripheral edema observed. No urine output since arrival in ICU 2 hours ago, but bladder scan shows no retention. Though there are no signs of FVO, nurse expressed concern to Dr Bernard for potential FVO due to creatinine of 4. Dr bernard believes the patient to be severly dehydrated and wants to keep fluid at high rate, but did reduce down to 750/hr, and he will reassess fluid requirements once blood glucose is less than 250. Nurse will continue to monitor for FVO.
[2025-02-20 16:35] LABS: Alanine Aminotransferase 28 U/L (0-41); Albumin Level 3.4 g/dL (3.5-5.2); Alkaline Phosphatase 129 U/L (40-130); Anion Gap 42.6 (5-19); Aspartate Amino Transferase 24 U/L (0-40); Blood Urea Nitrogen 49 mg/dL (6-20); Calcium 7.9 mg/dL (8.5-10.5); Chloride 88 mmol/L (98-107); Globulin 2.5 g/dL (1.3-4.6); Osmolality Calculated 313 mOsm/kg (285-295); Potassium 4.6 mmol/L (3.5-5.1); Sodium 133 mmol/L (136-145); Total Protein 5.9 g/dL (6.6-8.7)
[2025-02-20 16:45] LABS: Carbon Dioxide 7 mmol/L (22-29); Glucose 538 mg/dL (65-115)
[2025-02-20] MEDS: sodium chlor 0.9% + KCl 20 mEq 20 MEQ/1,000 ML BAG 500 MEQ IV ×2 (17:54→20:00)
[2025-02-20 18:34] LABS: Alanine Aminotransferase 28 U/L (0-41); Albumin Level 3.3 g/dL (3.5-5.2); Alkaline Phosphatase 119 U/L (40-130); Anion Gap 37.1 (5-19); Aspartate Amino Transferase 26 U/L (0-40); Blood Urea Nitrogen 50 mg/dL (6-20); Calcium 7.7 mg/dL (8.5-10.5); Carbon Dioxide 10 mmol/L (22-29); Chloride 92 mmol/L (98-107); Globulin 2.2 g/dL (1.3-4.6); Glucose 362 mg/dL (65-115); Osmolality Calculated 308 mOsm/kg (285-295); Potassium 4.1 mmol/L (3.5-5.1); Sodium 135 mmol/L (136-145); Total Protein 5.5 g/dL (6.6-8.7)
[2025-02-20] MEDS: INSULIN REGULAR IN 0.9 % NACL 100 UNIT/100 ML BAG 9.25 UNIT IV (18:57)
--- NOTE | 2025-02-20 19:16 | PC.NURSE ---
Shift SUmmary: Started on insulin drip after arrival in ICU. ANion gap is trending down, Blood glucose is decreasing at appropriate rates. Urine output: 500mL. Bladder scan shows complete emptying of bladder.
[2025-02-20 20:12] LABS: Alanine Aminotransferase 29 U/L (0-41); Albumin Level 3.4 g/dL (3.5-5.2); Alkaline Phosphatase 111 U/L (40-130); Anion Gap 27.4 (5-19); Aspartate Amino Transferase 26 U/L (0-40); Blood Urea Nitrogen 49 mg/dL (6-20); Calcium 7.5 mg/dL (8.5-10.5); Carbon Dioxide 15 mmol/L (22-29); Chloride 98 mmol/L (98-107); Globulin 1.9 g/dL (1.3-4.6); Glucose 291 mg/dL (65-115); Osmolality Calculated 306 mOsm/kg (285-295); Potassium 4.4 mmol/L (3.5-5.1); Sodium 136 mmol/L (136-145); Total Protein 5.3 g/dL (6.6-8.7)
[2025-02-20] MEDS: dextrose 5%-ns + KCl 20 20 MEQ/1,000 ML BAG 125 MEQ IV (21:10)
[2025-02-20 22:15] LABS: Alanine Aminotransferase 27 U/L (0-41); Albumin Level 3.3 g/dL (3.5-5.2); Alkaline Phosphatase 106 U/L (40-130); Anion Gap 20.3 (5-19); Aspartate Amino Transferase 26 U/L (0-40); Blood Urea Nitrogen 48 mg/dL (6-20); Calcium 7.7 mg/dL (8.5-10.5); Carbon Dioxide 20 mmol/L (22-29); Chloride 101 mmol/L (98-107); Globulin 2.0 g/dL (1.3-4.6); Glucose 224 mg/dL (65-115); Osmolality Calculated 304 mOsm/kg (285-295); Potassium 4.3 mmol/L (3.5-5.1); Sodium 137 mmol/L (136-145); Total Protein 5.3 g/dL (6.6-8.7)
--- NOTE | 2025-02-20 23:56 | P.HP_ITS ---
Providers/Chief Complaint 2 Admitting Physician: Diony Obando MD Primary Care Provider: Delfino Cruz MD Chief Complaint: hyperglycemia History of Present Illness Erik Valdez is a 44 year old male with past medical history of type 1 diabetes mellitus. His last visit with his primary care was on 02/03/2025, for a glucose recheck, noted that the patient's blood sugar was persistently high, he had also been complaining about his left shoulder hurting after he lifted something. Home medications include insulin glargine 30 units at bedtime and lispro sliding scale 3 times daily Patient also has hypertension has been well-controlled with losartan 25 mg daily and hydralazine 35 mg p.o. 3 times daily. Patient normally uses a blood glucose transmitter Dexcom G6 transmitter device to manage his blood sugars. Patient came to the ED on 02/20/2025 today, after having 2 days of nausea and vomiting. He stated he is going to get DKA before and he knows that his blood sugars were running high. He also complains of abdominal pain. In the ER, he received 1 L of saline, he was hyperglycemic with CMP glucose of 812 mg/dL. Mild hyperkalemia for metabolic acidosis with potassium 6.6, and ABG showed pH of 7.0. Bicarb was given in the ER, fluid resuscitation was started, patient was initiated on insulin drip per ICU protocol. Serum ketones positive. Patient was diagnosed with diabetic ketoacidosis, internal medicine was called and patient was transferred to ICU. When I saw the patient, he was awake alert, appeared mildly distressed, breathing fast. Complained of the left shoulder pain that he had been having the last couple of weeks. Resuscitation was continued as stated in the plan below. Medications/Allergies Home Medications ?Medication ?Instructions ?Recorded ?Confirmed ?Last Taken ?Type blood-glucose transmitter (Dexcom #1 ea 11/04/2402/20 Unknown Rx G6 Transmitter device) blood-glucose,teacher of the handicapped,cont #1 ea 11/04/24 02/20/25 Un known Rx (Dexcom G6 Handbag Stitcher) losartan 25 mg tablet 25 mg PO DAILY #30 tabs 10/2502/20/25 02/20/25 Rx blood-glucose sensor (Dexcom G6 #3 ea 11/16/24 5 Unknown Rx Sensor device) atorvastatin 10 mg tablet (Lipitor) 10 mg PO DAILY #90 tabs 11/30/24 02/20/25 02/20/25 Rx hydralazine 10 mg tablet 10 mg PO TID #90 tabs 02/20/25 02/20/25 Rx Cam Boot #1 ea 02/02/25 02/20/25 Unkn own Rx Custom [place] boot #1 ea 02/02/25 02/20/25 Unkn own Rx diabetic shoes with 3 sets of #1 ea 02/03/25 02/20/25 Unknown Rx inserts insulin glargine 100 unit/mL (3 35 unit SUBCUT QPM 02/20/25 02/19/25 History mL) subcutaneous pen (Lantus Solostar U-100 Insulin) insulin lispro 100 unit/mL See Protocol SUBCUT .TID+SS 02/20/25 02/20/25 02/20/25 History subcutaneous pen (Humalog KwikPen (U-100) Insulin) trazodone 150 mg tablet 150 mg PO BEDTIME 02/20/25 1 04/23/24 02/19/25 History Allergies Allergy/AdvReac Type Severity Reaction Status Date / Time No Known Allergies Allergy Verified 02/02/25 08:01 PFSH Acute 2 PFSH: Medical History Hypertension Chronic kidney disease (CKD) Insulin dependent diabetes mellitus Surgical History S/P cholecystectomy Social History Smoking and tobacco/nicotine status: never used tobacco/nicotine Alcohol intake: current Substance/Drug Use: never Additional social history: Patient wants full code as discussed on 12/24/2024 with Shiraz Gunn MD Household members: family 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 Vitals/I&O/Wt Last Vital Signs Temp 98.5 F 02/20/25 11:02 Pulse 112 H 02/20/25 12:50 Resp 42 H 02/20/25 12:50 BP 101/51 02/20/25 12:50 Pulse Ox 97 02/20/25 12:50 O2 Del Method Room Air 02/20/25 12:40 02/20/25 02/20/25 02/21/25 14:59 22:59 06:59 Intake Total 1999 3158.492 / 5158.492 1.808 / 5160.300 Balance 1999 3158.492 / 5158.492 1.808 / 5160.300 Weight last 48 hrs Weight 124 kg Weight 124.738 kg Physical Exam 2 Narrative: General: Patient is awake and oriented x 3, appears moderately distressed HEENT: Normocephalic, atraumatic, dry mucous membranes, sunken eyes Chest: Clear to auscultation bilaterally CV: Fast rhythm, no murmurs GI: Mildly tender to palpation all 4 quadrants Extremities: Limited exam, unremarkable Neuro: Patient oriented awake, moves all extremities and no focal motor deficits. Data 02/20/25 11:14 02/20/25 21:50 A&P Assessment and plan 1. Diabetic ketoacidosis associated with type 1 diabetes mellitus: Plan: Diabetic ketoacidosis associated with type 1 diabetes mellitus Hypokalemia due to hyperglycemia, ketoacidosis Metabolic acidosis High anion gap metabolic acidosis When the patient arrived to the ICU, patient's nurse informed me that his glucometer reading was reading greater than 650. Potassium is 6.6. ? Started normal saline at 1 L/h until new labs came back ordered CMP every 2 hours x 6 hours ? When glucose drops below 250 mg/Freida plan to switch to D5 half-normal saline ? IV access was adequate 18-gauge peripheral IV on the right, 20-gauge on the left, maintain access. ? Continue insulin gtt. protocol. Will add potassium 20 mEq per 1 L NS when potassium drops below 5 during resuscitation. ? Transfer to fast-acting lispro when anion gap closes below 20. Patient does have some degree of CKD likely, so anion gap might not close completely. ?Nicotine patch ? Patient education on diabetes compliance Patient responded well to volume resuscitation, by the end of the day, anion gap started closed and plan to transition to subcu insulin overnight. PDMP PDMP Reviewed: Not Reviewed Attestations 2 Medical Necessity Statement*: Patient is critically ill due to his severe acidosis, expect hospital stay for greater than 2 midnights Coding Level of Care Code Critical Care >/= 30 minutes Critical care time (in minutes): 48 The high probability of a clinically significant, sudden or life threatening deterioration, as referenced in this documentation, required my full and direct attention, intervention and personal management. The critical care time shown is in addition to time spent performing any reported separately billable procedures and includes the following: [x] Data and vital sign review and interpretation [x ] Patient assessment, examination and intervention [x] Medication orders and management [x] Patient/Family updates as able [x] Care Coordination and Documentation. Diagnoses Diabetic ketoacidosis associated with type 1 diabetes mellitus E10.10
[2025-02-21] VITALS (16 sets, daily range): BP systolic 111–163; BP diastolic 49–93; PULSE 88–96; RESP 12–28; O2SAT 95–100; BMI 31.6
[2025-02-21] MEDS: dextrose 5%-ns + KCl 20 20 MEQ/1,000 ML BAG 250 MEQ IV ×2 (02:53→07:14)
[2025-02-21 03:52] LABS: Anion Gap 19.6 (5-19); Blood Urea Nitrogen 49 mg/dL (6-20); Calcium 7.5 mg/dL (8.5-10.5); Carbon Dioxide 19 mmol/L (22-29); Chloride 103 mmol/L (98-107); Glucose 289 mg/dL (65-115); Osmolality Calculated 308 mOsm/kg (285-295); Potassium 4.6 mmol/L (3.5-5.1); Sodium 137 mmol/L (136-145)
[2025-02-21 06:09] LABS: Anion Gap 17.4 (5-19); Blood Urea Nitrogen 47 mg/dL (6-20); Calcium 7.6 mg/dL (8.5-10.5); Carbon Dioxide 21 mmol/L (22-29); Chloride 104 mmol/L (98-107); Glucose 298 mg/dL (65-115); Osmolality Calculated 309 mOsm/kg (285-295); Potassium 4.4 mmol/L (3.5-5.1); Sodium 138 mmol/L (136-145)
--- NOTE | 2025-02-21 09:47 | PC.NURSE ---
Dr. Obando rounding discussing POC. Anion gap closed, he placed order for Lantus. Received verbal orders for Humalog S/S med dose regimen with meals, order placed. see MAR.
[2025-02-21] MEDS: insulin glargine 100 units/1 mL 20 UNIT SUBCUT (09:50)
[2025-02-21 11:10] LABS: Anion Gap 17.0 (5-19); Blood Urea Nitrogen 46 mg/dL (6-20); Calcium 7.9 mg/dL (8.5-10.5); Carbon Dioxide 20 mmol/L (22-29); Chloride 106 mmol/L (98-107); Glucose 252 mg/dL (65-115); Osmolality Calculated 308 mOsm/kg (285-295); Potassium 4.0 mmol/L (3.5-5.1); Sodium 139 mmol/L (136-145)
[2025-02-21 14:19] LABS: Anion Gap 17.4 (5-19); Blood Urea Nitrogen 44 mg/dL (6-20); Calcium 8.0 mg/dL (8.5-10.5); Carbon Dioxide 19 mmol/L (22-29); Chloride 101 mmol/L (98-107); Glucose 365 mg/dL (65-115); Osmolality Calculated 302 mOsm/kg (285-295); Potassium 4.4 mmol/L (3.5-5.1); Sodium 133 mmol/L (136-145)
--- NOTE | 2025-02-21 15:26 | P.DS_ITS ---
Discharge Providers Date of Admission: 02/20/25 11:58 Date of Discharge: February 21, 2025 Attending Provider at Admission: Ayala García MD Attending Provider at Discharge: Diony Obando MD Primary Care Provider: Delfino Cruz MD Diagnoses at Discharge Discharge Diagnosis 1. Diabetic ketoacidosis associated with type 1 diabetes mellitus: Reason for Visit Reason for Visit: hyperglycemia Brief History: Erik Valdez is a 44 year old male with past medical history of type 1 diabetes mellitus. His last visit with his primary care was on 02/03/2025, for a glucose recheck, noted that the patient's blood sugar was persistently high, he had also been complaining about his left shoulder hurting after he lifted something. Home medications include insulin glargine 30 units at bedtime and lispro sliding scale 3 times daily Patient also has hypertension has been well-controlled with losartan 25 mg daily and hydralazine 35 mg p.o. 3 times daily. Patient normally uses a blood glucose transmitter Dexcom G6 transmitter device to manage his blood sugars. Patient came to the ED on 02/20/2025 today, after having 2 days of nausea and vomiting. He stated he is going to get DKA before and he knows that his blood sugars were running high. He also complains of abdominal pain. In the ER, he received 1 L of saline, he was hyperglycemic with CMP glucose of 812 mg/dL. Mild hyperkalemia for metabolic acidosis with potassium 6.6, and ABG showed pH of 7.0. Bicarb was given in the ER, fluid resuscitation was started, patient was initiated on insulin drip per ICU protocol. Serum ketones positive. Patient was diagnosed with diabetic ketoacidosis, internal medicine was called and patient was transferred to ICU. When I saw the patient, he was awake alert, appeared mildly distressed, breathing fast. Complained of the left shoulder pain that he had been having the last couple of weeks. Resuscitation was continued as stated in the plan below. Hospital Course Hospital Course 1. Diabetic ketoacidosis associated with type 1 diabetes mellitus: Plan: Diabetic ketoacidosis associated with type 1 diabetes mellitus Hypokalemia due to hyperglycemia, ketoacidosis Metabolic acidosis High anion gap metabolic acidosis When the patient arrived to the ICU, patient's nurse informed me that his glucometer reading was reading greater than 650. Potassium is 6.6. ? Started normal saline at 1 L/h until new labs came back ordered CMP every 2 hours x 6 hours ? When glucose drops below 250 mg/Freida plan to switch to D5 half-normal saline ? IV access was adequate 18-gauge peripheral IV on the right, 20-gauge on the left, maintain access. ? Continue insulin gtt. protocol. Will add potassium 20 mEq per 1 L NS when potassium drops below 5 during resuscitation. ? Transfer to fast-acting lispro when anion gap closes below 20. Patient does have some degree of CKD likely, so anion gap might not close completely. ?Nicotine patch ? Patient education on diabetes compliance Patient responded well to volume resuscitation, by the end of the day, anion gap started closed and plan to transition to subcu insulin overnight. Physical Exam Narrative: General: Patient is awake and oriented x 3, appears moderately distressed HEENT: Normocephalic, atraumatic, dry mucous membranes, sunken eyes Chest: Clear to auscultation bilaterally CV: Fast rhythm, no murmurs GI: Mildly tender to palpation all 4 quadrants Extremities: Limited exam, unremarkable Neuro: Patient oriented awake, moves all extremities and no focal motor deficits. Discharge Data Studies Completed and Pending Laboratory Results WBC 11.60 10^3/uL (3.29-11.43) H 02/20/25 11:14 RBC 3.52 10^6/uL (3.85-5.65) L 02/20/25 11:14 Hgb 10.70 g/dL (11.27-16.99) L 02/20/25 11:14 Hct 35.6 % (37-53) L 02/20/25 11:14 MCV 101.1 fl (82-101) H 02/20/25 11:14 MCH 30.4 pg (27-33) 02/20/25 11:14 MCHC 30.1 g/dL (30-55) 02/20/25 11:14 RDW 14.0 % (12.1-15.1) 02/20/25 11:14 Plt Count 139 10^3/cmm (157-399) L 02/20/25 11:14 MPV 9.9 fL (7.4-10.4) 02/20/25 11:14 Neut % (Auto) 86.4 % 02/20/25 11:14 Lymph % (Auto) 8.5 % 02/20/25 11:14 [place] % (Auto) 4.2 % 02/20/25 11:14 Eos % (Auto) 0.0 % 02/20/25 11:14 Baso % (Auto) 0.3 % 02/20/25 11:14 Neut # (Auto) 10.01 10^3/uL (1.8-7.7) H 02/20/25 11:14 Lymph # (Auto) 1.0 10^3/uL (0.8-4.8) 02/20/25 11:14 [place] # (Auto) 0.5 10^3/uL (0.2-0.9) 02/20/25 11:14 Eos # (Auto) 0.0 10^3/uL (0.0-0.8) 02/20/25 11:14 Baso # (Auto) 0.0 10^3/uL (0.0-0.1) 02/20/25 11:14 Nucleated RBC % (auto) 0 % 02/20/25 11:14 Nucleated RBCs # 0.0 /100WBC 02/20/25 11:14 Specimen Type Arterial 02/20/25 11:40 Sample Site Radial, left 02/20/25 11:40 ABG pH 7.00 (7.35-7.45) L* 02/20/25 11:40 ABG pCO2 13.9 mmHg (35-45) L* 02/20/25 11:40 ABG pO2 127.0 mmHg (80.0-100.0) H 02/20/25 11:40 ABG PO2/FiO2 Ratio 604 02/20/25 11:40 ABG HCO3 3.4 mmol/L (22-26) L 02/20/25 11:40 ABG Base Excess -26.0 mmol/L (-2.0-2.0) L 02/20/25 11:40 Thaddeus Test Pos 02/20/25 11:40 Hematocrit 34.9 % (42-52) L 02/20/25 11:40 O2 Delivery Device Room air 02/20/25 11:40 FiO2 21.0 % 02/20/25 11:40 Permastone Installer ID Monro 02/20/25 11:40 Sodium 133 mmol/L (136-145) L 02/21/25 13:58 Potassium 4.4 mmol/L (3.5-5.1) 02/21/25 13:58 Chloride 101 mmol/L (98-107) 02/21/25 13:58 Carbon Dioxide 19 mmol/L (22-29) L 02/21/25 13:58 Anion Gap 17.4 (5-19) 02/21/25 13:58 BUN 44 mg/dL (6-20) H 02/21/25 13:58 Creatinine 3.1 mg/dL (0.7-1.2) H 02/21/25 13:58 GFR Calculation 21.8 mL/min (90-130) L 02/21/25 13:58 Glucose 365 mg/dL (65-115) H 02/21/25 13:58 POC Glucose 267 mg/dL (70-110) H 02/21/25 11:54 Calculated Osmolality 302 mOsm/kg (285-295) H 02/21/25 13:58 Calcium 8.0 mg/dL (8.5-10.5) L 02/21/25 13:58 Phosphorus 6.7 mg/dL (2.5-4.5) H 02/20/25 11:14 Magnesium 2.3 mg/dL (1.7-2.3) 02/20/25 11:14 Total Bilirubin 0.4 mg/dL (0.15-1.2) 02/20/25 21:50 AST 26 U/L (0-40) 02/20/25 21:50 ALT 27 U/L (0-41) 02/20/25 21:50 Alkaline Phosphatase 106 U/L (40-130) 02/20/25 21:50 Total Protein 5.3 g/dL (6.6-8.7) L 02/20/25 21:50 Albumin 3.3 g/dL (3.5-5.2) L 02/20/25 21:50 Globulin 2.0 g/dL (1.3-4.6) 02/20/25 21:50 Serum Ketones Positive (Negative) H 02/20/25 11:14 Vitals Last Vital Signs Temp 98.5 F 02/20/25 11:02 Pulse 88 02/21/25 13:00 Resp 20 H 02/21/25 13:00 BP 159/93 02/21/25 14:00 Pulse Ox 98 02/21/25 13:00 O2 Del Method Room Air 02/20/25 12:40 Discharge Plan Discharge Patient Disposition: Home Condition: Stable Prescriptions: Continued losartan 25 mg tablet 25 mg PO DAILY Qty: 30 11RF ([facility] [place] Dexcom G6 Tube Draw Helper Misc See Rx Instructions .Route Qty: 1 11RF Rx Instructions: As directed ([facility] [place]) Dexcom G6 Transmitter Device See Rx Instructions .Route Qty: 1 11RF Rx Instructions: As directed ([facility] [place]) diabetic shoes with 3 sets of inserts See Rx Instructions .ROUTE .MEDSUPPLY Qty: 1 0RF Rx Instructions: As directed by [employer] ([facility] [place]) Cam Boot See Rx Instructions .Route .MEDSUPPLY Qty: 1 0RF Rx Instructions: As directed By Home hydralazine 10 mg tablet 10 mg PO TID Qty: 90 11RF ([facility] [place] Dexcom G6 Sensor Device See Rx Instructions .Route Qty: 3 11RF Rx Instructions: As directed atorvastatin [Lipitor] 10 mg tablet 10 mg PO DAILY Qty: 90 3RF ([facility] [place]) Custom [employer] boot See Rx Instructions .Route .MEDSUPPLY Qty: 1 0RF Rx Instructions: As directed by [facility] [employer] [facility] trazodone 150 mg tablet 150 mg PO BEDTIME insulin lispro [Humalog KwikPen Insulin] 100 unit/mL insulin pen See Protocol SUBCUT .TID+SS Protocol: Insulin Corrective High-Dose Regimen Condition: Fingerstick Blood Glucose Dose/Route: Insulin Units Condition: 141-180 mg/dl Dose/Route: 6 units/SQ Condition: 181-220 mg/dl Dose/Route: 8 units/SQ Condition: 221-260 mg/dl Dose/Route: 10 units/SQ Condition: 261-300 mg/dl Dose/Route: 12 units/SQ Condition: 301-350 mg/dl Dose/Route: 14 units/SQ Condition: 351-400 mg/dl Dose/Route: 16 units/SQ Condition: greater than 400 mg/dl Dose/Route: 18 units/SQ insulin glargine [Lantus Solostar U-100 Insulin] 100 unit/mL (3 mL) insulin pen 35 unit SUBCUT QPM Discharge Order = DC NOW: Discharge Order (Routine); Ordered 02/21/25 Ordered By: Diony Obando Referrals: Spurling,Delfino K, MD [Primary Care Provider, Family Practice] Discharge Diet: Usual diet Discharge Activity: Resume usual activity Patient Instructions: Opioid Safety, Patient Portal & [facility] Instructions Discharge Attestations Time Spent in Discharge Care*: greater than 30 min Status at Discharge: Cognitive status at discharge: cognitively intact , Behavioral status at discharge: cooperative , Quality Metrics Clinical Quality Measures [ No reported AMI, CVA or VTE this stay] Coding Level of Care Code Critical Care >/= 30 minutes Critical care time (in minutes): 35 The high probability of a clinically significant, sudden or life threatening deterioration, as referenced in this documentation, required my full and direct attention, intervention and personal management. The critical care time shown is in addition to time spent performing any reported separately billable procedures and includes the following: [x] Data and vital sign review and interpretation [x ] Patient assessment, examination and intervention [x] Medication orders and management [x] Patient/Family updates as able [x] Care Coordination and Documentation. Diagnoses Diabetic ketoacidosis associated with type 1 diabetes mellitus E10.10 Diabetes mellitus complication detail: without coma
--- NOTE | 2025-02-21 15:46 | PC.NURSE ---
Patient received DC orders, all IVs removed. Patient belongings sent with patient. Patient verbalized understanding. Education explained to patient and sent with discharge packet. No new questions at this time.
== END 2025-02-21 15:49 | disposition home or self-care (01) | DRG 420 ==
LOC: ER 12:00 → ICU 12:24
PROVIDERS: Family Medicine; Admitting Provider Student in an Organized Health Care Education/Training Program; Emergency Provider Emergency Medicine; PCP Family Medicine; Visit Provider Internal Medicine
DX: E10.10 Type 1 diabetes mellitus with ketoacidosis without coma (principal); Z79.4 Long term (current) use of insulin; E10.22 Type 1 diabetes mellitus with diabetic chronic kidney disease; I12.9 Hypertensive chronic kidney disease with stage 1 through stage 4 chronic kidney disease, or unspecified chronic kidney disease; N18.9 Chronic kidney disease, unspecified; E87.5 Hyperkalemia
CPT/HCPCS: 36415; 36416; 36600; 80048; 80053; 82009; 82803; 82962; 83735; 84100; 85025; 96365; 96367; 96372; 96375; 99285; J1815; J2405; J3480; J7030; J9999